=== PATIENT | female | born 1940 | race Caucasian/White ===

== ENCOUNTER → 2017-08-06 11:21 | Outpatient (CLI) | payer MEDICARE, BC, SELFPAY ==
[2017-08-06 12:59] LABS: International Normalized Ratio 1.3; Prothrombin Time (Protime)PT. 15.8 SECONDS (11.7-14.9)
== END ==
PROVIDERS: Family Provider Internal Medicine; PCP Internal Medicine; Visit Provider Internal Medicine Cardiovascular Disease
DX: I34.0 Nonrheumatic mitral (valve) insufficiency (principal); I48.1 Persistent atrial fibrillation; I27.21 Secondary pulmonary arterial hypertension; E78.5 Hyperlipidemia, unspecified; Z79.01 Long term (current) use of anticoagulants
CPT/HCPCS: 36415; 85610

== ENCOUNTER → 2017-08-25 13:26 | Outpatient (CLI) | payer MEDICARE, BC, SELFPAY ==
--- NOTE | 2017-08-25 13:27 | STE_ITS ---
Reason For Study: DYSPNEA/SOB Stress Results Protocol: Reece Protocol Maximum Predicted HR: 146 bpm Target HR: 124 bpm% Max imum Predicted HR: 112 % DurationHeart Rate Stage (mm:ss) (bpm) BP BASELINE 108 152/9 8 STAGE 1 1:52 16 4 / RECOVERY 130 142/9 2 Stress Duration: 1:52 mm:ss Maximum Stress HR: 164 bpm Baseline Echocardiogram Findings The estimated ejection fraction is 55 %. Stress Echo Wall motion Data Resting WMIntermediate WMStress WM Resting Wall Motion No regional wall motion abnormalities noted. EKG Data Atrial fibrillation with RVR. The patient exercised according to the regular Reece protocol for a total duration of 3:43. The maximum heart rate attained was 196 beats per minute. This was 134% of maximum predicted heart rate. The patient exercised into stage 2 of the Reece protocol. During stress, there were no ST or T wave changes noted to suggest ischemia. No clinical angina was noted. Interpretation Summary The estimated ejection fraction is 55 %. Normal, adequate, treadmill echocardiogram. Negative for ischemia by EKG and echocardiographic criteria. No anginal symptoms noted. Hypertensive blood pressure response to exercise. Poor exercise capacity for age. Test terminated due to dyspnea and attainment of target heart rate. Final LVEF of 75%. No complications. Ordering Physician: Eduardo Victoria Referring Physician: Eduardo Victoria Performed By: Anya Irvin RDCS
== END ==
PROVIDERS: Family Provider Internal Medicine; PCP Internal Medicine; Visit Provider Internal Medicine Cardiovascular Disease
DX: I27.21 Secondary pulmonary arterial hypertension (principal); I34.0 Nonrheumatic mitral (valve) insufficiency; I48.1 Persistent atrial fibrillation; R94.31 Abnormal electrocardiogram [ECG] [EKG]
CPT/HCPCS: 93017; 93350

== ENCOUNTER 2017-09-06 08:35 | Outpatient (RCR) | payer MEDICARE, BC, SELFPAY ==
[2017-08-16 11:45] LABS: Prothrombin Time Fingerstick 15.5 SEC (11.9-14.4)
[2017-08-25 15:24] LABS: International Normalized Ratio 1.4; Prothrombin Time (Protime)PT. 17.6 SECONDS (11.7-14.9)
[2017-09-06 09:06] LABS: International Normalized Ratio 2.3
[2017-10-04 10:04] LABS: International Normalized Ratio 2.5; Prothrombin Time (Protime)PT. 27.5 SECONDS (11.7-14.9)
== END 2017-09-06 10:00 | disposition home or self-care (01) ==
LOC: LAB 08:35
PROVIDERS: Family Provider Internal Medicine; PCP Internal Medicine; Visit Provider Internal Medicine Cardiovascular Disease
DX: I34.0 Nonrheumatic mitral (valve) insufficiency (principal); I48.0 Paroxysmal atrial fibrillation; E78.5 Hyperlipidemia, unspecified; I27.21 Secondary pulmonary arterial hypertension; Z79.01 Long term (current) use of anticoagulants; I48.1 Persistent atrial fibrillation; R94.31 Abnormal electrocardiogram [ECG] [EKG]
CPT/HCPCS: 36415; 36416; 85610; 93017; 93350

== ENCOUNTER 2017-10-04 09:00 | Outpatient (RCR) | payer MEDICARE, BC, SELFPAY ==
[2017-09-20 09:36] LABS: International Normalized Ratio 2.3; Prothrombin Time (Protime)PT. 25.2 SECONDS (11.7-14.9)
[2017-09-20 09:55] LABS: AST(SGOT) 24 U/L (15-37); Alanine Aminotransfer ALT/SGPT 32 U/L (13-56); Albumin, Serum 3.8 g/dL (3.2-5.0); Alkaline Phosphatase 97 U/L (45-117); Bilirubin, Direct 0.15 mg/dL (0.00-0.30); Cholesterol 159 mg/dL (200); Globulin 3.5 g/dL (2.2-4.2); High Density Lipoprotein 48 mg/dL; Protein, Total 7.3 g/dL (6.4-8.2); Triglycerides 225 mg/dL; Very Low Density Lipoprotein 45 mg/dL (5-40)
== END 2017-10-04 10:00 | disposition home or self-care (01) ==
LOC: LAB 09:00
PROVIDERS: Family Provider Internal Medicine; PCP Internal Medicine; Visit Provider Internal Medicine Cardiovascular Disease
DX: I48.1 Persistent atrial fibrillation (principal); I48.0 Paroxysmal atrial fibrillation; I34.0 Nonrheumatic mitral (valve) insufficiency; E78.5 Hyperlipidemia, unspecified; I27.21 Secondary pulmonary arterial hypertension; Z79.01 Long term (current) use of anticoagulants
CPT/HCPCS: 36415; 80061; 80076; 85610

== ENCOUNTER 2017-10-28 15:08 | Outpatient (RCR) | payer MEDICARE, BC, SELFPAY ==
[2017-10-28 15:45] LABS: International Normalized Ratio 2.8; Prothrombin Time (Protime)PT. 29.8 SECONDS (11.7-14.9)
== END 2017-10-28 16:00 | disposition home or self-care (01) ==
LOC: LAB 15:08
PROVIDERS: Family Provider Internal Medicine; PCP Internal Medicine; Visit Provider Internal Medicine Cardiovascular Disease
DX: I48.1 Persistent atrial fibrillation (principal); I34.0 Nonrheumatic mitral (valve) insufficiency; E78.5 Hyperlipidemia, unspecified; I27.21 Secondary pulmonary arterial hypertension; Z79.01 Long term (current) use of anticoagulants
CPT/HCPCS: 36415; 85610

== ENCOUNTER 2017-11-26 10:30 | Outpatient (RCR) | payer MEDICARE, BC, SELFPAY ==
[2017-11-26 12:12] LABS: International Normalized Ratio 2.6
== END 2017-11-26 12:00 | disposition home or self-care (01) ==
LOC: LAB 10:30
PROVIDERS: Family Provider Internal Medicine; PCP Internal Medicine; Referring Provider Internal Medicine Cardiovascular Disease; Visit Provider Internal Medicine Cardiovascular Disease
DX: I48.1 Persistent atrial fibrillation (principal); I34.0 Nonrheumatic mitral (valve) insufficiency; E78.5 Hyperlipidemia, unspecified; I27.21 Secondary pulmonary arterial hypertension; Z79.01 Long term (current) use of anticoagulants
CPT/HCPCS: 36415; 85610

== ENCOUNTER 2017-12-29 11:18 | Outpatient (RCR) | payer MEDICARE, BC, SELFPAY ==
[2017-12-29 11:40] LABS: Prothrombin Time Fingerstick 30.8 SEC (11.9-14.4)
== END 2018-01-07 10:34 | disposition home or self-care (01) ==
LOC: LAB 11:18
PROVIDERS: Family Provider Internal Medicine; PCP Internal Medicine; Referring Provider Internal Medicine Cardiovascular Disease; Visit Provider Internal Medicine Cardiovascular Disease
DX: I48.1 Persistent atrial fibrillation (principal); Z79.01 Long term (current) use of anticoagulants
CPT/HCPCS: 36416; 85610

== ENCOUNTER 2018-01-25 11:50 | Outpatient (RCR) | payer MEDICARE, BC, SELFPAY ==
--- OUTSIDE RECORDS SUMMARY | 2018-04-28 21:21 | XMS RPT_ITS ---
:1940 Author Organization OHIP Support Name Relationship Address Phone BOBBY, TOOTIE Unavailable [address] + [place] [address] R Unavailable Unavailable Unavailable LEIST, TOOTIE Unavailable [address] + [place] [address] R Unavailable Unavailable Unavailable LEIST, TOOTIE Unavailable [address] + [place] [address] R Unavailable Unavailable Unavailable LEIST, TOOTIE Unavailable [address] + [place] [address] R Unavailable Unavailable Unavailable LEIST, TOOTIE Unavailable [address] + [place] [address] R Unavailable Unavailable Unavailable LEIST, TOOTIE Unavailable [address] + [place] [address] R Unavailable Unavailable Unavailable LEIST, TOOTIE Unavailable [address] + [place] [address] R Unavailable Unavailable Unavailable LEIST, TOOTIE Unavailable [address] + [place] [address] R Unavailable Unavailable Unavailable LEIST, TOOTIE Unavailable [address] + [place] [address] R Unavailable Unavailable Unavailable LEIST, TOOTIE Unavailable [address] + [place] [address] R Unavailable Unavailable Unavailable LEIST, TOOTIE Unavailable [address] + [place] [address] R Unavailable Unavailable Unavailable LEIST, TOOTIE Unavailable [address] + [place] [address] R Unavailable Unavailable Unavailable LEIST, TOOTIE Unavailable [address] + [place] [address] R Unavailable Unavailable Unavailable LEIST, TOOTIE Unavailable [address] + [place] [address] R Unavailable Unavailable Unavailable LEIST, TOOTIE Unavailable [address] + [place] [address] R Unavailable Unavailable Unavailable R Unavailable Unavailable Unavailable CLARITA HONG Unavailable [address] + [place] [address] LEIST, TOOTIE Unavailable [address] + [place] [address] R Unavailable Unavailable Unavailable Care Team Providers Name Role Phone WADE AMAYA (HAIRSPRING TRUER) Attending Unavailable WADE AMAYA (HAIRSPRING TRUER) Referring Unavailable TALAMPAS, GERARDO D Referring Unavailable TALAMPAS, GERARDO D Referring Unavailable TALAMPAS, GERARDO D Referring Unavailable TALAMPAS, GERARDO D Referring Unavailable TALAMPAS, GERARDO D Attending Unavailable WADE AMAYA (HAIRSPRING TRUER) Attending Unavailable WADE AMAYA (HAIRSPRING TRUER) Referring Unavailable Wade Amaya HORSE RANCHER-C Attending Unavailable Talampas, Gerardo Primary Care Unavailable Eduardo Victoria Attending Unavailable Eduardo Victoria Referring Unavailable Talampas, Gerardo Primary Care Unavailable Wade Amaya HORSE RANCHER-C Attending Unavailable Talampas, Gerardo Primary Care Unavailable Daniela Mckeon Attending Unavailable Eduardo Victoria Attending Unavailable Talampas, Gerardo Referring Unavailable Talampas, Gerardo Primary Care Unavailable Eduardo Victoria Attending Unavailable Talampas, Gerardo Primary Care Unavailable Eduardo Victoria Referring Unavailable Eduardo Victoria Attending Unavailable Talampas, Gerardo Referring Unavailable Talampas, Gerardo Primary Care Unavailable Eduardo Victoria Attending Unavailable Eduardo Victoria Referring Unavailable Talampas, Gerardo Primary Care Unavailable Eduardo Victoria Attending Unavailable Talampas, Gerardo Referring Unavailable Talampas, Gerardo Primary Care Unavailable Eduardo Victoria Attending Unavailable Eduardo Victoria Referring Unavailable Talampas, Gerardo Primary Care Unavailable Eduardo Victoria Attending Unavailable Eduardo Victoria Referring Unavailable Talampas, Gerardo Primary Care Unavailable Eduardo Victoria Attending Unavailable Eduardo Victoria Attending Unavailable Eduardo Victoria Referring Unavailable Talampas, Gerardo Primary Care Unavailable Eduardo Victoria Attending Unavailable Eduardo Victoria Referring Unavailable Talampas, Gerardo Primary Care Unavailable Eduardo Victoria Attending Unavailable Eduardo Victoria Referring Unavailable Talampas, Gerardo Primary Care Unavailable Eduardo Victoria Attending Unavailable JulienEduardo Referring Unavailable Gerardo Garcia Primary Care Unavailable PROBLEMS PROBLEMS DATE TYPE CONDITION / CODE ATTENDING STATUS SOURCE 02/15/2018 Unknown Z78.0 - Asymptomatic Monique Active [place] menopausal state / [place] [facility] Z78.0(ICD-10) Hospital Repository 02/07/2018 Unknown I48.1 - Persistent Eduardo Victoria Active [place] atrial fibrillation Community / I48.1(ICD-10) Hospital Repository 01/10/2018 Unknown 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 Community anticoagulants / Hospital Z79.01(ICD-10) Repository 12/14/2017 Active Unknown / AMAYA, Active [place] UNK(Unknown) WADE (HAIRSPRING TRUER) [facility] [place] Repository 09/09/2017 Unknown 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 / Hospital I34.0(ICD-10) Repository 09/22/2017 Unknown R06.02 - Shortness Eduardo Victoria Active [place] of breath / Community R06.02(ICD-10) Hospital Repository 08/03/2017 Unknown E78.5 - Eduardo Victoria Active [place] Hyperlipidemia, [facility] unspecified / Hospital E78.5(ICD-10) Repository 08/03/2017 Unknown 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 / Hospital I27.21(ICD-10) Repository 07/27/2017 Active Persistent atrial NA Active [place] fibrillation / Clinic Main I48.1(ICD-10) [place] Repository 07/21/2017 Active Cardiac arrhythmia, NA Active [place] unspecified / Clinic Main I49.9(ICD-10) [place] Repository PROCEDURES PROCEDURES No Procedure Records FoundRESULTS RESULTS DEXA BONE DENSITY Observed: 02/15/2018 Status: F Source: [place] STUDY 11:00 AM [facility] HOSPITAL REPOSITORY [facility] Imaging Services [address] [facility] [place] [address] Dexa Bone Density Study MR#: [id number] Acct: [id number] Name: TAMMI ROSALES Rep #: [id number] : 1940 F 77 From: Brian Whiting MD PCP: Gerardo Garcia MD Status: REG CLI Study: Dexa Bone Density Study Date of Exam: 02/15/18 Exam# [id number] Ordering Dr: Wade Amaya STUDY: DUAL ENERGY X-RAY ABSORPTIOMETRY / DXA REASON FOR EXAM: Female, 77 years old. The patient is postmenopausal. Loss of height. TECHNIQUE: Bone Mineral Density (BMD) measurements of lumbar spine and bilateral hips were obtained. COMPARISON: Comparison is made with prior examination dated February 11, 2016. FINDINGS: Lumbar Spine (L1-L4): g/cm2 (1.000) / T-score (-1.5) / Z-score (0.3) Findings are suggestive of osteopenia with a moderate fracture risk. Left Femur Total: g/cm2 (0.841) / T-score (-1.3) / Z- score (0.4) Left Femoral Neck: g/cm2 (0.788) / T-score (-1.8) / Z- score (0.1) Right Femur Total: g/cm2 (0.842) / T-score (-1.3) / Z- score (0.4) Right Femoral Neck: g/cm2 (0.818) / T-score (-1.6) / Z-score (0.3) The T-Scores on the most recent prior examination were: Lumbar Spine (L1-L4): There has been worsening of bone density since the previous examination. Left Femur Total: which represents a worsening of 1.4%. Right Femur Total: which represents a worsening of 1.3%. BD/Dexa Bone Density Study IMPRESSION: The patient is considered osteopenic as outlined below according to World Jesús Organization (WHO) criteria with a moderate fracture risk. There has been worsening of bone density since the previous examination. Reference Information: The T-score is the number of standard deviations above or below the standard which is normal for young adults at their peak bone mineral density. The World Health Organization (WHO) interprets the T-scores as follows: Above -1 Normal bone density Between -1 and -2.5 Osteopenia Equal to / or below -2.5 Osteoporosis As a practical clinical guideline, osteopenia may be graded as follows: Mild -1 through -1.5 Moderate -1.6 through -2.0 Severe -2.1 through -2.4 The Z-score is the number of standard deviations above or below age-matched controls. A Z-score of less than -1.5 would be considered abnormal. References: 1. NIH Osteoporosis and Related Bone Diseases http://www.osteo.org 2. International Society for Clinical Densitometry http://www.iscd.org 3. National Osteoporosis Foundation http://www.nof.org Electronically Signed: Brian Whiting MD at 14:09 EST Tel [phone], Service support , CC: MADYSON Amaya; Gerardo Garcia MD Vascular Specialists: Signed PROTHROMBIN TIME W/INR Collected: 02/11/2018 Status: F Source: [place] 12:30 PM [facility] REPOSITORY TYPE CODE TESTS RESULT OUT OF RANGE REFERENCE UNITS LAB L300.4150 11.7-14.9 SECONDS High PROTIME 30.7 LAB L300.4200 Normal INR 2.9 Performed By: #### L300.3900 #### [facility] [address], [address] SCREENING MAMM (CAD), Observed: 02/03/2018 Status: F Source: [place] BILAT 10:38 AM [facility] REPOSITORY [facility] Imaging Services [address] [place] [address] SCREENING MAMM (CAD), BILAT MR#: [id number] Acct: [id number] Name: TAMMI ROSALES Rep #: [id number] : 1940 F 77 From: Alexandr Alaniz MD PCP: Gerardo Garcia MD Status: REG CLI Study: SCREENING MAMM (CAD), BILAT Date of Exam: 02/03/18 Exam# [id number] Ordering Dr: Wade Amaya NP-Naa MAMMOGRAPHY - BILATERAL SCREENING 3-D RAFFY SYNTHESIS REASON FOR EXAM: Female, 77 years old. Bilateral Screening 3-D tomosynthesis PERTINENT HISTORY: History of breast cancer in daughter at age 41. History of lumpectomy in 2016 with radiation therapy.. TECHNIQUE: 2-D mammograms and 3-D Raffy synthesis of the breast (s) were performed. CAD was performed. COMPARISON: February 02, 2017, January 30, 2016 FINDINGS: The breast composition is there are postlumpectomy changes in the left breast unaltered. There are stable lymph nodes in the right axilla. Scattered benign calcifications are seen. No dense spiculated masses or suspicious microcalcifications are identified. No architectural distortion is identified. There is no skin thickening or retraction. There has been no significant change since the prior study. BI/SCREENING MAMM (CAD), BILAT IMPRESSION: No mammographic signs of malignancy. Routine yearly mammograms recommended. ASSESSMENT CATEGORY: BIRADS Category 2: Benign. A letter regarding these results will be sent to the patient by the facility within 30 days. FOLLOW UP RECOMMENDATION: Yearly follow up mammogram recommended. (A) Approximately 10% of breast cancers are not detected by mammography. A normal mammogram should not delay biopsy of a clinically suspicious abnormality. Electronically Signed: Alexandr Alaniz MD at 10:48 EST , Service support , CC: WAYLON- Wade Amaya; Gerardo Garcia MD Vascular Specialists: Signed PROTIME W/INR Collected: 01/25/2018 Status: F Source: [place] 12:00 PM [facility] REPOSITORY TYPE CODE TESTS RESULT OUT OF REFERENCE UNITS RANGE LAB L9200.1001 11.9-14.4 SEC High PROTIME ISTAT 36.0 Result Comment: Reference Range 11.9 - 14.4 LAB L9200.2000 Normal INR ISTAT 3.20 Result Comment: Critical Value > 3.5 Performed By: #### L9200.0000 #### [facility] Point of Care [facility] [address] [place], [place] [address] PROTIME W/INR Collected: 12/29/2017 Status: F Source: [place] TEJEDA 11:34 AM [facility] REPOSITORY TYPE CODE TESTS RESULT OUT OF REFERENCE UNITS RANGE LAB L9200.1001 11.9-14.4 SEC High PROTIME ISTAT 30.8 Result Comment: Reference Range 11.9 - 14.4 LAB L9200.2000 Normal INR ISTAT 2.70 Result Comment: Critical Value > 3.5 Performed By: #### [id number] #### [facility] Point of Care [address] [place] [address] PROGRESS Observed: 12/14/2017 Status: COMPLETED Source: [place] 10:45 AM [facility] REPOSITORY HNO ID: [id number] Author: Wade Amaya Service: (none) Author Type: Nurse Practitioner Type: Progress Notes Filed: 12/15/2017 8:12 AM Note Text: Chief Complaint Patient presents with: Established Patient HPI: Tammi Rosales is a 76 year old female who presents here today for follow up breast cancer. Per Dr. Warren's previous note: H/o hyperlipidemia who was found to have an abnormality of the left?breast on screening mammogram. ?? She was referred to Dr. Lorenzo and underwent a ultrasound- guided core needle biopsy on 02/16/2015. Pathology demonstrated an invasive lobular carcinoma, grade 1. The specimen was strongly positive for estrogen receptors quantified at greater than 95% and weakly positive for progesterone receptors at 2%. HER-2 was quantified at 0-1+ on immunohistochemistry. Fish testing not performed. ?? Patient underwent a lumpectomy and sentinel lymph node biopsy on 03/01/2015. The final pathology demonstrated that within the breast there was a 2.3 cm single focus of invasive carcinoma. DCIS was not present. LCIS was present measuring 1 mm in largest dimension. A overall grade was 1. Margins were negative. The closest margin was the lateral and inferior at 10 mm. No lymphovascular invasion was identified. One lymph node was removed. It was negative on frozen section but positive for isolated tumor cells. ?? Had been on Premarin for about 5-10 yrs for jaret-menopausal symptoms. Had not taken in a long time. ? Oncotype Dx with her and her . Recurrence score 14 (9% risk with tamoxifen alone). Low risk. ? Radiation treatment:04/18/15 to 05/16/15. Tolerated well. ? Current therapy:arimidex Began May 2015. ? No complaints. I was diagnosed with A. fib in July. Pt. now on coumadin. ?? Appetite:good Energy level:good Denies fevers or recent illness. Resp:denies cough or sob, occ. shin with long distances h/o seasonal allergies Cardiac:denies chest pain/+ palpitations -newly dx a.fib GI:denies abd pain, n/v, moving bowels regularly :denies dysuria/hematuria Extrem:denies pain to back/bones/joints Endo:if so rarely hot flashes Neuro:denies symptoms of neuropathy Skin:denies rashes/lesions Heme:denies bleeding The ROS is otherwise negative. Past medical history, appointments, medications, allergies reviewed. No changes. EXAM: BP 142/92 Pulse 92 Temp 36.7 ?C (98.1 ?F) (Oral) Wt 72.6 kg (160 lb) BMI 25.25 kg/m? APPEARANCE Well appearing, alert, in no acute distress, well-hydrated, well nourished. HEART RRR with normal S1 and S2, no murmurs LUNG clear to auscultation BREAST FEMALE no mass/nodule b/l, L radiation changes LYMPH NODES No cervical lymphadenopathy, No supraclavicular lymphadenopathy and No axillary lymphadenopathy. ABDOMEN bowel sounds normoactive, no bruits, soft, non-tender, non-distended, without organomegaly or palpable masses EXTREMITIES No edema NEURO Awake, alert and oriented x 3, Normal gait and No involuntary motions. SKIN Skin color, texture, turgor normal, no suspicious rashes or lesions ASSESSMENT/PLAN: 1. Lobular carcinoma of left breast (HCC) - ICD9: 174.9, ICD10: C50.912 (primary diagnosis) Stage IIA, T2N0(i+), invasive lobular carcinoma of the left breast s/p lumpectomy and sentinel node biopsy. It's ER positive (>95%, strong), MO positive (2%, weak) and Her2/josé antonio 0-1+. 2. Encounter for screening mammogram for high-risk patient - ICD9: V76.11, ICD10: Z12.31 3. 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 - ?Tolerating arimidex well. Continue. - ?Bone density due 2017. - ?Mammogram due 2017. Pt. has this done at [facility]. - ?Follow up in 6 months-pending mammogram. - ?Pt. aware to call office with any questions/concerns. ? The patient indicates understanding of these issues and agrees with the plan. Wade Amaya APRN.CNP CNOVSP Observed: 12/14/2017 Status: COMPLETED Source: [place] 10:30 AM [facility] REPOSITORY Visit (SP) Office ([place]) TAMMI ROSALES ([id number]) 1940 F Date Time Provider Department 12/14/17 10:30 AM WADE AMAYA During your visit today, we recorded the following information about you: Temperature Pulse Blood pressure Weight 98.1 degrees 92/minute 142/92 72.6 kg Wade Amaya APRN.CNP 12/15/2017 8:12 AM Signed Chief Complaint Patient presents with: Established Patient HPI: Tammi Rosales is a 76 year old female who presents here today for follow up breast cancer. Per Dr. Warren's previous note: H/o hyperlipidemia who was found to have an abnormality of the left?breast on screening mammogram. ?? She was referred to Dr. Lorenzo and underwent a ultrasound- guided core needle biopsy on 02/16/2015. Pathology demonstrated an invasive lobular carcinoma, grade 1. The specimen was strongly positive for estrogen receptors quantified at greater than 95% and weakly positive for progesterone receptors at 2%. HER-2 was quantified at 0-1+ on immunohistochemistry. Fish testing not performed. ?? Patient underwent a lumpectomy and sentinel lymph node biopsy on 03/01/2015. The final pathology demonstrated that within the breast there was a 2.3 cm single focus of invasive carcinoma. DCIS was not present. LCIS was present measuring 1 mm in largest dimension. A overall grade was 1. Margins were negative. The closest margin was the lateral and inferior at 10 mm. No lymphovascular invasion was identified. One lymph node was removed. It was negative on frozen section but positive for isolated tumor cells. ?? Had been on Premarin for about 5-10 yrs for jaret-menopausal symptoms. Had not taken in a long time. ? Oncotype Dx with her and her . Recurrence score 14 (9% risk with tamoxifen alone). Low risk. ? Radiation treatment:04/18/15 to 05/16/15. Tolerated well. ? Current therapy:arimidex Began May 2015. ? No complaints. I was diagnosed with A. fib in July. Pt. now on coumadin. ?? Appetite:good Energy level:good Denies fevers or recent illness. Resp:denies cough or sob, occ. shin with long distances h/o seasonal allergies Cardiac:denies chest pain/+ palpitations -newly dx a.fib GI:denies abd pain, n/v, moving bowels regularly :denies dysuria/hematuria Extrem:denies pain to back/bones/joints Endo:if so rarely hot flashes Neuro:denies symptoms of neuropathy Skin:denies rashes/lesions Heme:denies bleeding The ROS is otherwise negative. Past medical history, appointments, medications, allergies reviewed. No changes. EXAM: BP 142/92 Pulse 92 Temp 36.7 ?C (98.1 ?F) (Oral) Wt 72.6 kg (160 lb) BMI 25.25 kg/m? APPEARANCE Well appearing, alert, in no acute distress, well- hydrated, well nourished. HEART RRR with normal S1 and S2, no murmurs LUNG clear to auscultation BREAST FEMALE no mass/nodule b/l, L radiation changes LYMPH NODES No cervical lymphadenopathy, No supraclavicular lymphadenopathy and No axillary lymphadenopathy. ABDOMEN bowel sounds normoactive, no bruits, soft, non-tender, non-distended, without organomegaly or palpable masses EXTREMITIES No edema NEURO Awake, alert and oriented x 3, Normal gait and No involuntary motions. SKIN Skin color, texture, turgor normal, no suspicious rashes or lesions ASSESSMENT/PLAN: 1. Lobular carcinoma of left breast (HCC) - ICD9: 174.9, ICD10: C50.912 (primary diagnosis) Stage IIA, T2N0(i+), invasive lobular carcinoma of the left breast s/p lumpectomy and sentinel node biopsy. It's ER positive (>95%, strong), MO positive (2%, weak) and Her2/josé antonio 0-1+. 2. Encounter for screening mammogram for high-risk patient - ICD9: V76.11, ICD10: Z12.31 3. Menopause - ICD9: 627.2, ICD10: Z78.0 4. jail (current) use of aromatase inhibitors - ICD9: V07.52, ICD10: Z79.811 - ?No concerning findings on exam. - ?Tolerating arimidex well. Continue. - ?Bone density due 2017. - ?Mammogram due 2017. Pt. has this done at [facility]. - ?Follow up in 6 months-pending mammogram. - ?Pt. aware to call office with any questions/concerns. ? The patient indicates understanding of these issues and agrees with the plan. Wade Amaya APRN.HAIRSPRING TRUER Referring Provider: WADE AMAYA [[id number]] Allergies As of Date: 12/14/2017 Noted Allergy Reaction SEASONAL ALLERGIES 05/13/2016 5 - Intolerance Comments: Rhinitis Date Reviewed: 12/14/2017 Reviewed by: Wade Amaya - Fully Assessed Reason for Visit: Established Patient [175] Primary Visit Diagnosis:Lobular carcinoma of left breast (HCC) [C50.912] Other Visit Diagnoses:Encounter for screening mammogram for high-risk patient [Z12.31] Menopause [Z78.0] jail (current) use of aromatase inhibitors [Z79.811] Order(s):GUY SCREENING W RAFFY [[id number]] Order #: [id number] FUTURE DXA-AXIAL SKELETON [[id number]] Order #: [id number] FUTURE Follow-up and Disposition History Recorded Prescriptions as of 12/14/2017 Sig: ANASTROZOLE 1 MG TABLET Take 1 tablet by mouth once d* ALBUTEROL SULFATE HFA 90 MCG/* Inhale 2 Puffs as instructed * METOPROLOL TARTRATE 25 MG TAB* Take 1 tablet by mouth twice * WARFARIN 2 MG TABLET Take 1 tablet by mouth once d* CETIRIZINE 10 MG TABLET Take 1 tablet by mouth once d* MULTIVITAMIN CHEWABLE TABLET Take 1 tablet by mouth once d* CALCIUM 600 ORAL Take 2 tablets by mouth once * DIPHENHYDRAMINE 25 MG CAPSULE Take 25 mg by mouth daily at * TYLENOL ORAL Take 1 tablet by mouth daily * ASPIRIN 81 MG TABLET,DELAYED * Take 81 mg by mouth once bennie* Problem List As Of Date 12/14/2017 Noted Resolved Lobular breast cancer (HCC) [C50.919] INVALID FOR*04/02/2015 Lobular breast cancer (HCC) [C50.919] INVALID FOR* Anemia due to vitamin B12 deficiency [D51.9] INVALID FOR*07/21/2017 Pure hypercholesterolemia [E78.00] INVALID FOR* Vitamin D deficiency, history of [E55.9] INVALID FOR* Persistent atrial fibrillation (HCC) [I48.1] INVALID FOR* More... jail (current) use of aromatase inhibitors*INVALID FOR* Encounter Status:Closed by WADE AMAYA CNP on 12/15/17 PROTHROMBIN TIME W/INR Collected: 11/26/2017 Status: F Source: [place] 10:31 AM [facility] REPOSITORY TYPE CODE TESTS RESULT OUT OF RANGE REFERENCE UNITS LAB L300.4150 11.7-14.9 SECONDS High PROTIME 28.0 LAB L300.4200 Normal INR 2.6 Performed By: #### L300.3900 #### [place] [facility], [address] PROTHROMBIN TIME W/INR Collected: 10/28/2017 Status: F Source: [place] 3:15 PM [facility] REPOSITORY Order Comment: Comments: STANDING ORDER, OKAY TO DO FINGERSTICK Comments: STANDING ORDER, OKAY TO DO FINGERSTICK TYPE CODE TESTS RESULT OUT OF RANGE REFERENCE UNITS LAB L300.4150 11.7-14.9 SECONDS High PROTIME 29.8 LAB L300.4200 Normal INR 2.8 Performed By: #### L300.3900 #### [facility] [address] [place], [place], [address] PROTHROMBIN TIME W/INR Collected: 10/04/2017 Status: F Source: [place] 9:14 AM [facility] REPOSITORY TYPE CODE TESTS RESULT OUT OF RANGE REFERENCE UNITS LAB L300.4150 11.7-14.9 SECONDS High PROTIME 27.5 LAB L300.4200 Normal INR 2.5 Performed By: #### L300.3900 #### [facility] [address] [place], [address] PROTHROMBIN TIME W/INR Collected: 09/20/2017 Status: F Source: [place] 9:04 AM [facility] REPOSITORY TYPE CODE TESTS RESULT OUT OF RANGE REFERENCE UNITS LAB L300.4150 11.7-14.9 SECONDS High PROTIME 25.2 LAB L300.4200 Normal INR 2.3 Performed By: #### L300.3900 #### [facility] [place], [address] LIVER PROFILE Collected: 09/20/2017 Status: F Source: [place] 9:04 AM [facility] REPOSITORY TYPE CODE TESTS RESULT OUT OF RANGE REFERENCE UNITS LAB L501.1500 6.4-8.2 g/dL Normal T PROT 7.3 LAB L501.1800 3.2-5.0 g/dL Normal ALB 3.8 LAB L501.1950 2.2-4.2 g/dL Normal GLOB 3.5 LAB L501.4100 15-37 U/L Normal AST 24 LAB L501.4305 45-117 U/L Normal ALK P 97 LAB L501.4405 13-56 U/L Normal ALT 32 LAB L501.4600 0.20-1.00 mg/dL Normal T BILI 0.50 LAB L501.4700 0.00-0.30 mg/dL Normal D BILI 0.15 Performed By: #### L500.3400, L500.4100 #### [facility] [address] [place], [place], [address] LIPID PROFILE Collected: 09/20/2017 Status: F Source: [place] 9:04 AM [facility] REPOSITORY TYPE CODE TESTS RESULT OUT OF RANGE REFERENCE UNITS LAB L501.4900 200 mg/dL Normal CHOL 159 Result Comment: <200 mg/dL Desirable 200-240 mg/dL Borderline >240 mg/dL High Risk LAB L501.5000 mg/dL High TRIG 225 Result Comment: The drugs N-Acetylcysteine and Metamizole may falsely depress this assay. Serum Triglycerides Reference Interval Normal <150 mg/dL Borderline high 150 - 199 mg/dL High 200 - 499 mg/dL Very High > or = 500 mg/dL LAB L501.6400 mg/dL Normal HDL 48 Result Comment: The drugs N-Acetylcysteine and Metamizole may falsely depress this assay. Reference Range HDL <40 mg/dL Low HDL Cholesterol HDL >or= 60 mg/dL High HDL Cholesterol LAB L501.6500 0-130 mg/dL Normal LDL 66 LAB L501.6600 5-40 mg/dL High VLDL 45 Performed By: #### L500.3400, L500.4100 #### [facility] [address] [place], [address] PROTHROMBIN TIME W/INR Collected: 09/06/2017 Status: F Source: [place] 8:38 AM [facility] REPOSITORY TYPE CODE TESTS RESULT OUT OF RANGE REFERENCE UNITS LAB L300.4150 11.7-14.9 SECONDS High PROTIME 25.0 LAB L300.4200 Normal INR 2.3 Performed By: #### L300.3900 #### [facility] [address] [place], [address] STRESS TEST ECHO W/O Observed: 08/25/2017 Status: F Source: [place] CONTRAST 3:51 PM [facility] REPOSITORY [facility] Cardi[facility] Services [address] [place] [address] Stress Test Echo w/o Contrast MR#: [id number] Acct: [id number] Name: TAMMI ROSALES Rep #: [id number] : 1940 76 From: Eduardo Victoria MD Primary Care: Gerardo Garcia MD Status: REG CLI Ordering Dr: Eduardo Victoria MD Sex: F C Reason For Study: DYSPNEA/SOB Stress Results Protocol: Reece Protocol Maximum Predicted HR: 146 bpm Target HR: 124 bpm% Max imum Predicted HR: 112 % DurationHeart Rate Stage (mm:ss) (bpm) BP BASELINE 108 152/9 8 STAGE 1 1:52 16 4 / RECOVERY 130 142/9 2 Stress Duration: 1:52 mm:ss Maximum Stress HR: 164 bpm Baseline Echocardiogram Findings The estimated ejection fraction is 55 %. Stress Echo Wall motion Data Resting WMIntermediate WMStress WM Resting Wall Motion No regional wall motion abnormalities noted. EKG Data Atrial fibrillation with RVR. The patient exercised according to the regular Reece protocol for a total duration of 3:43. The maximum heart rate attained was 196 beats per minute. This was 134% of maximum predicted heart rate. The patient exercised into stage 2 of the Erece protocol. During stress, there were no ST or T wave changes noted to suggest ischemia. No clinical angina was noted. Interpretation Summary The estimated ejection fraction is 55 %. Normal, adequate, treadmill echocardiogram. Negative for ischemia by EKG and echocardiographic criteria. No anginal symptoms noted. Hypertensive blood pressure response to exercise. Poor exercise capacity for age. Test terminated due to dyspnea and attainment of target heart rate. Final LVEF of 75%. No complications. Ordering Physician: Eduardo Victoria Referring Physician: Eduardo Victoria Performed By: Anya Irvin RDCS 08/25/17 4692 Date Eduardo Victoria MD CC: Eduardo Victoria MD; Gerardo Garcia MD Date Dictated: 08/25/17 1409 Date Transcribed: 08/25/17 5191 [facility] Specialists: Signed PROTHROMBIN TIME W/INR Collected: 08/25/2017 Status: F Source: [place] 2:41 PM [facility] REPOSITORY TYPE CODE TESTS RESULT OUT OF RANGE REFERENCE UNITS LAB L300.4150 11.7-14.9 SECONDS High PROTIME 17.6 LAB L300.4200 Normal INR 1.4 Performed By: #### L300.3900 #### [facility] [address] [place], [address] PROTIME W/INR Collected: 08/16/2017 Status: F Source: [place] 11:42 AM [facility] REPOSITORY TYPE CODE TESTS RESULT OUT OF REFERENCE UNITS RANGE LAB L9200.1001 11.9-14.4 SEC High PROTIME ISTAT 15.5 Result Comment: Reference Range 11.9 - 14.4 LAB L9200.2000 Normal INR ISTAT 1.30 Result Comment: Critical Value > 3.5 Performed By: #### L9200.0000 #### [facility] Point of Care [address] [place] [address] OFFICE VISIT REPORT Observed: 08/09/2017 Status: F Source: [place] 1:36 PM [facility] REPOSITORY [facility] [address] [place] [address] OFFICE VISIT Date of Service: 08/06/17 MR#: [id number] Acct: [id number] Patient: TAMMI ROSALES Rep #: [id number] : 1940 Provider: Eduardo Victoria MD Age/Sex: 76/F [place] [facility] [place] Status: Signed Intake Vital Signs08/06/17 Blood Pressure 147/83 08/06/17 Blood Pressure Location Rt brachial Intake Visit Reasons: per LL Chief Complaint: New onset atrial fibrillation, hypertension, pulmonary hypertension Pile Driving Technician Required: No Accompanied by: Is patient in pain?: No Allergies No Known Allergies Allergy (Verified 08/03/17 14:31) Medications Acetaminophen [Pain Relief] 500 mg PO QHS 02/28/15 [History Confirmed 08/03/17] Aspirin [Adult Low Dose Aspirin EC] 81 mg PO DAILY 02/28/15 [History Confirmed 08/03/17] Calcium Carbonate/Vitamin D3 [Calcium 600-Vit D3 800 Tablet] 1 ea PO BID 02/28/15 [History Confirmed 08/03/17] DiphenhydrAMINE [Benadryl] 25 mg PO QHS PRN PRN 02/28/15 [History Confirmed 08/03/17] Multivitamins,Therapeutic [Multivitamin] 1 tab PO DAILY 02/28/15 [History Confirmed 08/03/17] Anastrozole 1 mg PO DAILY 05/13/16 [History Confirmed 08/03/17] warfarin 2 mg tablet 2 mg PO QDAY 08/02/17 [History Confirmed 08/03/17] atorvastatin 20 mg tablet 20 mg PO QDAY #30 tab 08/03/17 [Rx Confirmed 08/03/17] metoprolol tartrate 50 mg tablet 50 mg PO BID #60 tab 08/03/17 [Rx Confirmed 08/03/17] Nurse's Note: Pt stopped by office to correlate her cuff with ours. Her bp on manual cuff from our office was 120/60, HR 96 and regular. On her home cuff, taken X 2: 147/83, 147/98, hr 81. 08/09/17 1336 <Electronically signed by Eduardo Victoria MD> Date Eduardo Victoria MD Cosigner Signature: Date (if applicable) CC: Crissy Campos PROTHROMBIN TIME W/INR Collected: 08/06/2017 Status: F Source: [place] 11:25 AM [facility] REPOSITORY Order Comment: Comments: STANDING ORDER Comments: STANDING ORDER TYPE CODE TESTS RESULT OUT OF RANGE REFERENCE UNITS LAB L300.4150 11.7-14.9 SECONDS High PROTIME 15.8 LAB L300.4200 Normal INR 1.3 Performed By: #### L300.3900 #### [place] [facility] [address] [place], [address] CARDIOLOGY VISIT Observed: 08/03/2017 Status: F Source: [place] REPORT 3:09 PM [facility] REPOSITORY [facility] [address] [place] [address] OFFICE VISIT Date of Service: 08/03/17 MR#: [id number] Acct: [id number] Name: TAMMI ROSALES Rep #: [id number] : 1940 Provider: Eduardo Victoria MD Age/Sex: 76/F Location: [facility] [place] Status: Signed HPI HPI Chief Complaint: New onset atrial fibrillation, hypertension, pulmonary hypertension Details: Referring physician: Dr. Radha NAVARRO BOBBY, is a 76 F who presents to the office today for evaluation of newly discovered atrial fibrillation. The patient is a nondiabetic, with a history of hypertension, hypercholesterolemia, no previous coronary disease, lifelong non-smoker, nondrinker, no previous TIA or CVA. Patient went in for a routine physical in her PCPs office and it was discovered she had an irregular heart rhythm. EKG confirmed atrial fibrillation with rapid ventricular response. Patient was placed on Coumadin and Lopressor therapy. She underwent an echocardiogram on 07/30/17 which showed moderate mitral regurgitation, LVEF of 55%, mild left atrial enlargement, and RVSP of 48 mmHg consistent with at least moderate pulmonary hypertension. Patient is unaware of her atrial fibrillation but does note decreased exercise and energy level starting about 6 weeks ago. She denies any exertional chest pain, angina but does complain of dyspnea on exertion, shortness of breath, decreased energy level as well. She also has a history of lobular breast cancer status post lumpectomy in February 2015 and status post hysterectomy in 2004. In our office today her blood pressure is 134/82, and her heart rate is 98 and are regular. Her physical exam is as below. Her lipids dated 01/08/17 show an HDL of 54 and an LDL of 153. She is currently on red yeast rice. Intake Vital Signs08/03/17 Height 5 ft 7 in 08/03/17 Weight: 167 lb 08/03/17 Body Mass Index (BMI) 26.2 08/03/17 Blood Pressure 134/82 08/03/17 Respiratory Rate 18 08/03/17 Pulse Rate 98 Intake Visit Reasons: A FIB, HTN (RADHA) Allergies No Known Allergies Allergy (Verified 08/03/17 14:31) Medications Acetaminophen [Pain Relief] 500 mg PO QHS 02/28/15 [History Confirmed 08/03/17] Aspirin [Adult Low Dose Aspirin EC] 81 mg PO DAILY 02/28/15 [History Confirmed 08/03/17] Calcium Carbonate/Vitamin D3 [Calcium 600-Vit D3 800 Tablet] 1 ea PO BID 02/28/15 [History Confirmed 08/03/17] DiphenhydrAMINE [Benadryl] 25 mg PO QHS PRN PRN 02/28/15 [History Confirmed 08/03/17] Multivitamins,Therapeutic [Multivitamin] 1 tab PO DAILY 02/28/15 [History Confirmed 08/03/17] Anastrozole 1 mg PO DAILY 05/13/16 [History Confirmed 08/03/17] warfarin 2 mg tablet 2 mg PO QDAY 08/02/17 [History Confirmed 08/03/17] atorvastatin 20 mg tablet 20 mg PO QDAY #30 tab 08/03/17 [Rx Confirmed 08/03/17] metoprolol tartrate 50 mg tablet 50 mg PO BID #60 tab 08/03/17 [Rx Confirmed 08/03/17] PFSH Family History Mother Heart disease chf Father Hypertension Social History Smoking Status: Never smoker ROS Const Const: Positive for weakness and fatigue; negative for difficulty sleeping, frequent falls, headache(s) or excessive sweating Eyes Eyes: Negative for loss of peripheral vision, transient loss of vision, blurry vision or double vision ENT ENT: Negative for Nosebleed/epistaxis, balance problems, dizziness or headache(s) Cardio Chest Pain: No Edema: None Muscle aches with walking: None Resp Respiratory: Negative for SOB with activity, SOB at rest, SOB orthopnea\SOB lying down or paroxysmal nocturnal dyspnea GI GI: Negative nausea or heartburn : Negative for hematuria Musc Musc: Negative for muscle aches/ myalgia, muscle weakness, joint pain or balance problems Skin Skin: Negative non-healing lesions, unusual bruising or rash Neuro Neuro: Positive for weakness; negative for blurry vision, dizziness, lightheadedness, orthostatic symptoms, double vision, frequent falls or headache(s) Dwight Hematologic/Lymphatic: Negative for easy bruising Endo Endo: Positive for fatigue; negative for excessive sweating or increased thirst/drinking Psych Psych: Negative for anxiety or depression Allergy Allergy/Immunology: Negative for hives, Negative for rash Cardiology Exam Const Appearance: cooperative, healthy appearing and no acute distress Nutritional Appearance: well nourished Orientation: alert, oriented x3 and oriented to person Head Head: normal to inspection, atraumatic and normocephalic Nose: external nose normal Face and Sinus: face symmetric Mouth: oral mucosae normal Eyes General: appearance normal, both eyes and all related structures Eyelids: eyelids normal Conjunctivae: conjunctivae normal Pupils: PERRL and normal by confrontation EOM: EOM intact bilaterally Neck Neck: normal visual inspection and full ROM Carotids: normal carotid upstroke Chest Chest inspection: normal inspection of the chest Auscultation: Bilateral: Clear to Auscultation Cardio Palpation: normal PMI Rate: regular rate Rhythm: irregular rhythm Heart sounds: S1 normal and S2 normal GI GI: normal to inspection, no hepatosplenomegaly and bowel sounds present Neuro General: alert, oriented x3, awake, CN's II-XI intact bilaterally and moves all extremities Skin Skin: no rashes or lesions noted Extremities Pulses: Normal: Right Femoral Pulse, Left Femoral Pulse, Right Dorsalis Pedis Pulse, Left Dorsalis Pedis Pulse, Right Posterior Tibial Pulse, Left Posterior Tibial Pulse, Right Radial Pulse, Left Radial Pulse Lower Extremity Edema: None: Bilateral Psych Psychological: normal affect Assessment AND Plan 1. Persistent atrial fibrillation I48.1 Plan 1. Atrial fibrillation: The patient is unaware of her atrial fibrillation but does have a subjective note of decreased energy level which may be related to the onset of her atrial fibrillation. Her heart rate and blood pressure still not optimally controlled. I recommend increasing her Lopressor to 50 mg p.o. twice daily and returning in 2 weeks time for a blood pressure check. To better assess her coronary condition, I recommend she undergo a treadmill echocardiogram to evaluate her exercise capacity, blood pressure response to exercise, and coronary ischemia. If this is grossly abnormal, the patient may require diagnostic coronary angiogram with bridging Lovenox. If her stress test is negative, I would continue Coumadin therapy for 4 consecutive weeks with an INR of greater than 2.0 followed by elective DC cardioversion. Orders Orders: 2. Hyperlipidemia E78.5 Plan 2. Hyperlipidemia: Her LDL cholesterol is markedly elevated given her risk factors. Do not believe red yeast rice is accommodating her well. Recommend discontinuation of red yeast rice and repeating lipid profile in 6 weeks time. Orders Orders: 3. 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 Pulmonary hypertension: This may be related to her mitral regurgitation as well as possibly undiagnosed obstructive sleep apnea. Recommend continuing surveillance with echocardiograms on yearly basis to monitor her LV function, mitral regurgitation and pulmonary pressures. 4. Return office in 6 months. This note was generated using a voice recognition system and there may be incorrect words, spelling or punctuation that were not noted when reviewing the office note prior to saving. 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 Coding Level of Care Code Off vis,new,level 4 Diagnoses Persistent atrial fibrillation I48.1 Hyperlipidemia E78.5 Secondary pulmonary arterial hypertension I27.21 08/03/17 1509 <Electronically signed by Eduardo Victoria MD> Date Eduardo Victoria MD Cosigner Signature: Date (if applicable) CC: Gerardo Garcia MD PROGRESS Observed: 08/02/2017 Status: COMPLETED Source: [place] 5:04 PM [facility] REPOSITORY HNO ID: [id number] Author: Lesly Mulligan RN Service: (none) Author Type: (none) Type: Progress Notes Filed: 08/02/2017 5:04 PM Note Text: per written order by dr garcia patient is to take 4mg for two doses and then resume back on 2mg daily until recheck. PATIENT NOTIFIED OF INFORMATION PROGRESS Observed: 08/02/2017 Status: COMPLETED Source: [place] 5:02 PM [facility] REPOSITORY HNO ID: [id number] Author: Lesly Mulligan RN Service: (none) Author Type: (none) Type: Progress Notes Filed: 08/02/2017 5:04 PM Note Text: patient had inr completed at [facility] patients inr is 1.0 (patients inr range is 2.0-3.0) patient is currently taking 2mg daily patients last dose change none at this time as pt is a new start to medication as of 07/30/17 patient has had no changes to medication except for the coumadin and no missed doses and no change in diet Advised patient that they would be contacted regarding medication dose and when to follow up after information is reviewed by provider. After provider review please contact the patient with information and schedule follow up appointment with coumadin clinic. FYI - patient is leaving for vacation on 08/07/17 until 08/14/17 patient has been scheduled for an inr follow up on 08/06/17 PROGRESS Observed: 07/30/2017 Status: COMPLETED Source: [place] 1:09 PM [facility] REPOSITORY HNO ID: [id number] Author: Kalin Palmer Service: (none) Author Type: Physician Type: Progress Notes Filed: 08/08/2017 9:48 PM Note Text: Tammi K Bobby underwent echocardiogram with the finding of atrial fibrillation with rapid ventricular response. She has moderate mitral insufficiency. Left ventricular function is normal. Blood pressure was elevated in the office, but she was anxious about returning home to her and daughter, both of whom are ill. Duration of atrial fibrillation is uncertain, as she is asymptomatic. I offered her appointment this afternoon, but she requested that she be referred to [facility]. I discussed with Dr. Garcia and made recommendations for initiation of beta jakub and anticoagulation, pending cardiology evaluation. Patient was advised that prescriptions would be called in for her and that Dr. Garcia' office would be in touch with her. Kalin Palmer MD CNOV Observed: 07/30/2017 Status: COMPLETED Source: [place] 12:30 PM [facility] REPOSITORY Office Visit (CARDWS) ROBIMomoTAMMI ([id number]) 1940 F Date Time Provider Department 07/30/17 12:30 PM ECHOCARDIOGRAM [facility] CARDWS During your visit today, we recorded the following information about you: Kalin Palmer MD 08/08/2017 9:48 PM Signed Tammi Rosales underwent echocardiogram with the finding of atrial fibrillation with rapid ventricular response. She has moderate mitral insufficiency. Left ventricular function is normal. Blood pressure was elevated in the office, but she was anxious about returning home to her and daughter, both of whom are ill. Duration of atrial fibrillation is uncertain, as she is asymptomatic. I offered her appointment this afternoon, but she requested that she be referred to [facility]. I discussed with Dr. Garcia and made recommendations for initiation of beta jakub and anticoagulation, pending cardiology evaluation. Patient was advised that prescriptions would be called in for her and that Dr. Garcia' office would be in touch with her. Kalin Palmer MD Referring Provider: GERARDO GARCIA [[id number]] Allergies As of Date: 07/30/2017 Noted Allergy Reaction SEASONAL ALLERGIES 05/13/2016 5 - Intolerance Comments: Rhinitis Date Reviewed: 07/21/2017 Reviewed by: Henri Gabriel - Fully Assessed Visit Diagnosis:Persistent atrial fibrillation (HCC) [I48.1] Comment:Newly diagnosed at this appointment Order(s):ECHO [[id number]] Order #: [id number]. #:[id number] Prescriptions as of 07/30/2017 Sig: CETIRIZINE 10 MG TABLET Take 1 tablet by mouth once d* ANASTROZOLE 1 MG TABLET Take 1 tablet by mouth once d* RED YEAST RICE ORAL Take 3 tablets by mouth once * MULTIVITAMIN CHEWABLE TABLET Take 1 tablet by mouth once d* CALCIUM 600 ORAL Take 2 tablets by mouth once * DIPHENHYDRAMINE 25 MG CAPSULE Take 25 mg by mouth daily at * TYLENOL ORAL Take 1 tablet by mouth daily * ASPIRIN 81 MG TABLET,DELAYED * Take 81 mg by mouth once bennie* Problem List As Of Date 07/30/2017 Noted Resolved Lobular breast cancer (HCC) [C50.919] INVALID FOR*04/02/2015 Lobular breast cancer (HCC) [C50.919] INVALID FOR* Anemia due to vitamin B12 deficiency [D51.9] INVALID FOR*07/21/2017 Pure hypercholesterolemia [E78.00] INVALID FOR* Vitamin D deficiency, history of [E55.9] INVALID FOR* Persistent atrial fibrillation (HCC) [I48.1] INVALID FOR* More... Follow-up and Disposition History Recorded Encounter Status:Closed by GERARDO GARCIA MD on 08/08/17 CBC Collected: 07/21/2017 Status: F Source: [place] 4:56 PM [facility] REPOSITORY TYPE CODE TESTS RESULT OUT OF REFERENCE UNITS RANGE LAB WBC 3.70-11.00 k/uL WBC 9.22 LAB RBC 3.90-5.20 m/uL RBC 4.05 LAB HGB 11.5-15.5 g/dL Hemoglobin 13.2 LAB HCT 36.0-46.0 % Hematocrit 41.5 LAB MCV 80.0-100.0 fL MCV High 102.5 LAB MCH 26.0-34.0 pG MCH 32.6 LAB MCHC 30.5-36.0 g/dL MCHC 31.8 LAB RDWCV 11.5-15.0 % RDW-CV 13.1 LAB PLTCT 150-400 k/uL Platelet Count 265 LAB MPV 9.0-12.7 fL MPV 11.0 LAB ABSNUC <0.01 k/uL Absolute nRBC <0.01 Performed By: #### CBC, CMP, MG1, FREET3, FT4, TSH #### [facility] [address] [place] [address] COMP METABOLIC PANEL Collected: 07/21/2017 Status: F Source: [place] 4:56 PM [facility] REPOSITORY TYPE CODE TESTS RESULT OUT OF REFERENCE UNITS RANGE LAB TP 6.3-8.0 g/dL Protein, Total 7.3 LAB ALB 3.9-4.9 g/dL Albumin 4.4 LAB CA 8.5-10.2 mg/dL Calcium, Total 9.3 LAB TBIL 0.2-1.3 mg/dL Bilirubin, Total 0.2 LAB ALKP 32-117 U/L Alkaline Phosphatase 88 LAB AST 13-35 U/L AST 28 LAB GLU 74-99 mg/dL Glucose 86 Result Comment: The [place] Diabetes [employer] (ADA) provides guidance for cutoff values for fasting glucose and random glucose. The ADA defines fasting as no caloric intake for at least 8 hours. Fas ting plasma glucose results between 100 to 125 mg/dL indicate increased risk for diabetes (prediabetes). Fasting plasma glucose results greater than or equal to 126 mg/dL meet the criteria for diagnosis of diabetes. In the absence of unequivocal hyperglycemia, results should be confirmed by repeat testing. In a patient with classic symptoms of hyperglycemia or hyperglycemic crisis, random plasma glucose results greater than or equal to 200 mg/dL meet the criteria for diagnosis of diabetes. Reference: Standards of Medical Care in Diabetes 2016, [place] [employer] Association. Diabetes Care. 2016.39(Suppl 1). LAB BUN 7-21 mg/dL BUN 20 LAB CRET 0.58-0.96 mg/dL Creatinine 0.81 LAB NA 136-144 mmol/L Sodium 142 LAB K 3.7-5.1 mmol/L Potassium 4.1 LAB CL 97-105 mmol/L Chloride 101 LAB CO2 22-30 mmol/L CO2 24 LAB AGAP 9-18 mmol/L Anion Gap 17 LAB ALT 7-38 U/L ALT 15 LAB GFRAA eGFR- Amer. >60 LAB GFRNAA . eGFR-All Other Races >60 Result Comment: eGFR (Estimated GFR) Units of measure: mL/min/1.73 meters squared eGFR is derived from the reexpressed MDRD Study equation using the following parameters: serum creatinine, age, gender and race. The creatinine assay has been calibrated to be traceable to IDMS. An eGFR <60 mL/min/1.73m2 for >3 months is consistent with chronic kidney disease. Refer to KDOQI guidelines for clinical interpretation. In patients with unstable renal function, e.g. those with acute kidney injury, the eGFR may not accurately reflect actual GFR. Performed By: #### CBC, CMP, MG1, FREET3, FT4, TSH #### [facility] [employer] [address] [place], [place] [address] MAGNESIUM Collected: 07/21/2017 Status: F Source: [place] 4:[address] [facility] REPOSITORY TYPE CODE TESTS RESULT OUT OF REFERENCE UNITS RANGE LAB MG 1.7-2.3 mg/dL Magnesium 2.2 Performed By: #### CBC, CMP, MG1, FREET3, FT4, TSH #### [facility] [address] [address] FREE T3 Collected: 07/21/2017 Status: F Source: [place] 4:56 PM [facility] REPOSITORY TYPE CODE TESTS RESULT OUT OF RANGE REFERENCE UNITS LAB FREET3 2.3-4.1 pg/mL Free T3 2.8 Performed By: #### CBC, CMP, MG1, FREET3, FT4, TSH #### [place] [address] FREE T4 Collected: 07/21/2017 Status: F Source: [place] 4:56 PM [facility] REPOSITORY TYPE CODE TESTS RESULT OUT OF RANGE REFERENCE UNITS LAB FT4 0.9-1.7 ng/dL Low Free T4 0.8 Performed By: #### CBC, CMP, MG1, FREET3, FT4, TSH #### [place] [address] TSH Collected: 07/21/2017 Status: F Source: [place] 4:56 PM [facility] REPOSITORY TYPE CODE TESTS RESULT OUT OF RANGE REFERENCE UNITS LAB TSH 0.400-5.500 uU/mL TSH 4.170 Performed By: #### CBC, CMP, MG1, FREET3, FT4, TSH #### [place] [id number] ECG COMPLETE W Observed: 07/21/2017 Status: F Source: [place] INTERPRETATION 4:27 PM [facility] REPOSITORY NAME : TAMMI RSOALES PID : [id number] : 1940 Gender : Female Race : ORD : [id number] Procedure Date : Jul 21 2017 16:27:21 Edit Date : Jul 27 2017 07:42:10 Diagnosis:ATRIAL FIBRILLATION WITH RAPID VENTRICULAR RESPONSE ABNORMAL ECG Confirmed by NICHOLE GARIBAY D.O. ([id number]) on 07/27/2017 7:42:04 AM Ventricular Rate : 117 BPM Atrial Rate : 111 BPM QRS Duration : 90 ms Q-T Interval : 340 ms QTC Calculation(Bezet) : 474 ms R [place] : 47 degrees T [place] : 4 degrees Test Reason : Location : 185 : [facility] Overread By : NICHOLE GARIBAY D.O. Edited By : NICHOLE GARIBAY D.O. Referred By : GERARDO GARCIA Acquired by : MELISSA, PROGRESS Observed: 07/21/2017 Status: COMPLETED Source: [place] 2:[address] [facility] REPOSITORY HNO ID: [id number] Author: Gerardo Garcia Service: (none) Author Type: Physician Type: Progress Notes Filed: 07/27/2017 1:06 AM Note Text: Medicare Yearly Visit Medical B eligibilty date 12/10/2007 Date of last exam 01/13/17 for 6 months follow up Heartburn once in a while and TUMS effective. No complaints of palpitations or increased SHIN or SOB at rest. No chest pain. Stressors noted. recently in hospital for cardiac issues. 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 She watches her diet for sodium, low fat and low cholesterol all of the time. List of current specialists seen: Dr. Warren/Wade Amaya (oncology) Dr. Underwood (Ophthalmology)--cataract on right to be done August (does not need left done yet) End of Live Planning discussed including patients advanced directive wishes: Yes (no copies on Epic yet) Living will, DNR form and Durable power of tax associate attorney for heatare I am willing to follow Tammi's advanced directives. Depression screen She in the past two weeks has felt down, depressed, but not hopeless; with little interest or pleasure in doing things. Stressors with dtr Functional Ability/Safety Screen 1. Was the patient's timed Up and Go test unsteady or longer than 30 seconds? Normal test; able to stand unassisted 2. Does the patient need help with the phone, transportation, shopping,preparing meals, housework, laundry, medications or managing money? No 3. Does your home have rugs in the hallway, lack of grab bars in the bathroom, lack of handrails on the stairs or have poor lighting? No Hearing Evaluation: normal PHYSICAL EXAM BP 134/80 (BP Site: Right Arm, BP Position: Sitting, BP Cuff Size: Regular Adult) Pulse 112 Resp 12 Wt 75.8 kg (167 lb) BMI 26.35 kg/m? Alert and oriented X 3: YES There is no height or weight on file to calculate BMI. Visual acuity: OD: 20/70 OS: 20/ 25 OU: 20/25 with glasses PHYSICAL EXAMINATION: Blood pressure 134/80, pulse 112, resp. rate 12, weight 75.8 kg (167 lb). General appearance: well appearing, in no acute distress, well-hydrated, well nourished Skin: Skin color, texture, turgor normal. No significant rashes or lesions. Head: Normal Eyes: Anicteric sclera. Pupils are equally round and reactive to light. Extraocular movements are intact. Ears: External ears normal. Canals clear. TM's unremarkable. Nose/Sinuses: negative Oropharynx: Lips, mucosa, and tongue normal. Teeth and gums normal. Oropharynx normal. Neck: Neck supple, no adenopathy; thyroid symmetric, normal size, no bruits. Lungs: Lungs clear to auscultation Heart: negative. irregularly irregular rate and rhythm versus frequent ectopy without murmur, gallop, or rubs. Abdomen: Abdomen soft, non-tender. Bowel sounds normal. No masses, organomegaly Extremities: Extremities normal. No deformities, edema, or skin discoloration. Good capillary refill. Musculoskeletal: grossly normal Peripheral pulses: Normal Neuro: Gait normal. Reflexes normal and symmetric. Sensation grossly intact. No gross focal neurological deficits. Component Latest Ref Rng AND Units 06/26/2015 12/06/2015 06/24/2016 01/08/2017 Glucose 74 - 99 mg/dL 90 84 BUN 7 - 21 mg/dL 16 13 Creatinine 0.58 - 0.96 mg/dL 0.72 0.74 Sodium 136 - 144 mmol/L 143 142 Potassium 3.7 - 5.1 mmol/L 4.3 4.2 Chloride 97 - 105 mmol/L 104 101 CO2 22 - 30 mmol/L 27 29 Anion Gap 9 - 18 mmol/L 12 12 Calcium 8.5 - 10.2 mg/dL 9.3 9.4 eGFR- >60 >60 eGFR-All Other Races . >60 >60 WBC 3.70 - 11.00 k/uL 7.39 8.00 RBC 3.90 - 5.20 m/uL 3.89 (L) 4.21 Hemoglobin 11.5 - 15.5 g/dL 12.8 13.8 Hematocrit 36.0 - 46.0 % 39.5 43.5 MCV 80.0 - 100.0 fL 101.5 (H) 103.3 (H) MCH 26.0 - 34.0 pG 32.9 32.8 MCHC 30.5 - 36.0 g/dL 32.4 31.7 RDW-CV 11.5 - 15.0 % 12.9 12.7 Platelet Count 150 - 400 k/uL 272 304 MPV 9.0 - 12.7 fL 10.3 10.3 Absolute nRBC <0.01 k/uL <0.01 Triglyceride 30 - 149 mg/dL 198 (H) 264 (H) Cholesterol, Total 100 - 199 mg/dL 250 (H) 260 (H) HDL Cholesterol >55 mg/dL 52 (L) 54 (L) VLDL Cholesterol 6 - 40 mg/dL 40 53 (H) LDL Cholesterol 60 - 129 mg/dL 158 (H) 153 (H) Fasting Time hrs 12 12 TC:HDL Ratio 1.00 - 5.00 4.81 4.81 LDL:HDL Ratio 0.50 - 3.55 3.04 2.83 Non HDL Cholesterol 90 - 159 mg/dL 198 (H) 206 (H) Vitamin D 25 Hydroxy 31.0 - 80.0 ng/mL 30.5 (L) 53.1 39.4 Vitamin B12 211 - 946 pg/mL 437 368 443 ECG discused with patient--showing a fib with RVR with rate 117 ASSESSMENT/PLAN: 76 year old female The following prevention plan was discussed during the office visit and provided to the patient: - Vaccines recommended Influenza in the fall; will see about insurance coverage for TDAP and Shingrix - Glaucoma screening - Colorectal Cancer screening Colonoscopy up to date; 10 years would be 2026 for next colonscopy - Mammogram recommended and ordered - Lipid panel up to date along with glucose for diabetes screening Encounter Diagnosis ICD-10-CM 1. Wellness examination Z00.00 2. Persistent atrial fibrillation (HCC) I48.1 TSH BLD T3 FREE BLD T4 FREE/FREE THYROX COMP METABOLIC PANEL MAGNESIUM BLD CBC ECHO 3. Irregular cardiac rhythm I49.9 ECG COMPLETE W INTERPRETATION Above issues addressed with patient. Patient involved in shared decision making for management of her medical issues. History and medications reviewed. Epic updated as needed Refills taken care of and meds adjusted as indicated after reviewed history, exam and labs. Health Maintenance reviewed. Updated record and/or ordered tests as recorded. Encouraged on efforts at healthy diet and regular exercise and adequate sleep. Noted stressors with 's recent cardiac issues and admission to hospital. Patient now with new diagnosis of atrial fibrillation--asymptomatic. Labs as above, She prefers to start with testing including echocardiogram before referral to another specialist. After get labs and echocardiogram back, will discuss with her further evaluation and treatment as indicated. Gerardo Garcia MD CNOV Observed: 07/21/2017 Status: COMPLETED Source: [place] 2:20 PM [facility] REPOSITORY Office Visit (INTMWS) TAMMI ROSALES ([id number]) 1940 F Date Time Provider Department 07/21/17 2:20 PM GERARDO GARCIA INTMWS During your visit today, we recorded the following information about you: Pulse Respiration Blood pressure Weight 112/minute 12/minute 134/80 75.8 kg Gerardo Garcia MD 07/27/2017 1:06 AM Signed Medicare Yearly Visit Medical B eligibilty date 12/10/2007 Date of last exam 01/13/17 for 6 months follow up Heartburn once in a while and TUMS effective. No complaints of palpitations or increased SHIN or SOB at rest. No chest pain. Stressors noted. recently in hospital for cardiac issues. 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 She watches her diet for sodium, low fat and low cholesterol all of the time. List of current specialists seen: Dr. Warren/Wade Amaya (oncology) Dr. Underwood (Ophthalmology)--cataract on right to be done August (does not need left done yet) End of Live Planning discussed including patients advanced directive wishes: Yes (no copies on Pollsb yet) Living will, DNR form and Durable power of tax associate attorney for heatare I am willing to follow Tammi's advanced directives. Depression screen She in the past two weeks has felt down, depressed, but not hopeless; with little interest or pleasure in doing things. Stressors with dtr Functional Ability/Safety Screen 1. Was the patient's timed Up and Go test unsteady or longer than 30 seconds? Normal test; able to stand unassisted 2. Does the patient need help with the phone, transportation, shopping,preparing meals, housework, laundry, medications or managing money? No 3. Does your home have rugs in the hallway, lack of grab bars in the bathroom, lack of handrails on the stairs or have poor lighting? No Hearing Evaluation: normal PHYSICAL EXAM BP 134/80 (BP Site: Right Arm, BP Position: Sitting, BP Cuff Size: Regular Adult) Pulse 112 Resp 12 Wt 75.8 kg (167 lb) BMI 26.35 kg/m? Alert and oriented X 3: YES There is no height or weight on file to calculate BMI. Visual acuity: OD: 20/70 OS: 20/ 25 OU: 20/25 with glasses PHYSICAL EXAMINATION: Blood pressure 134/80, pulse 112, resp. rate 12, weight 75.8 kg (167 lb). General appearance: well appearing, in no acute distress, well-hydrated, well nourished Skin: Skin color, texture, turgor normal. No significant rashes or lesions. Head: Normal Eyes: Anicteric sclera. Pupils are equally round and reactive to light. Extraocular movements are intact. Ears: External ears normal. Canals clear. TM's unremarkable. Nose/Sinuses: negative Oropharynx: Lips, mucosa, and tongue normal. Teeth and gums normal. Oropharynx normal. Neck: Neck supple, no adenopathy; thyroid symmetric, normal size, no bruits. Lungs: Lungs clear to auscultation Heart: negative. irregularly irregular rate and rhythm versus frequent ectopy without murmur, gallop, or rubs. Abdomen: Abdomen soft, non-tender. Bowel sounds normal. No masses, organomegaly Extremities: Extremities normal. No deformities, edema, or skin discoloration. Good capillary refill. Musculoskeletal: grossly normal Peripheral pulses: Normal Neuro: Gait normal. Reflexes normal and symmetric. Sensation grossly intact. No gross focal neurological deficits. Component Latest Ref Rng AND Units 06/26/2015 12/06/2015 06/24/2016 01/08/2017 Glucose 74 - 99 mg/dL 90 84 BUN 7 - 21 mg/dL 16 13 Creatinine 0.58 - 0.96 mg/dL 0.72 0.74 Sodium 136 - 144 mmol/L 143 142 Potassium 3.7 - 5.1 mmol/L 4.3 4.2 Chloride 97 - 105 mmol/L 104 101 CO2 22 - 30 mmol/L 27 29 Anion Gap 9 - 18 mmol/L 12 12 Calcium 8.5 - 10.2 mg/dL 9.3 9.4 eGFR- >60 >60 eGFR-All Other Races . >60 >60 WBC 3.70 - 11.00 k/uL 7.39 8.00 RBC 3.90 - 5.20 m/uL 3.89 (L) 4.21 Hemoglobin 11.5 - 15.5 g/dL 12.8 13.8 Hematocrit 36.0 - 46.0 % 39.5 43.5 MCV 80.0 - 100.0 fL 101.5 (H) 103.3 (H) MCH 26.0 - 34.0 pG 32.9 32.8 MCHC 30.5 - 36.0 g/dL 32.4 31.7 RDW-CV 11.5 - 15.0 % 12.9 12.7 Platelet Count 150 - 400 k/uL 272 304 MPV 9.0 - 12.7 fL 10.3 10.3 Absolute nRBC <0.01 k/uL <0.01 Triglyceride 30 - 149 mg/dL 198 (H) 264 (H) Cholesterol, Total 100 - 199 mg/dL 250 (H) 260 (H) HDL Cholesterol >55 mg/dL 52 (L) 54 (L) VLDL Cholesterol 6 - 40 mg/dL 40 53 (H) LDL Cholesterol 60 - 129 mg/dL 158 (H) 153 (H) Fasting Time hrs 12 12 TC:HDL Ratio 1.00 - 5.00 4.81 4.81 LDL:HDL Ratio 0.50 - 3.55 3.04 2.83 Non HDL Cholesterol 90 - 159 mg/dL 198 (H) 206 (H) Vitamin D 25 Hydroxy 31.0 - 80.0 ng/mL 30.5 (L) 53.1 39.4 Vitamin B12 211 - 946 pg/mL 437 368 443 ECG discused with patient--showing a fib with RVR with rate 117 ASSESSMENT/PLAN: 76 year old female The following prevention plan was discussed during the office visit and provided to the patient: - Vaccines recommended Influenza in the fall; will see about insurance coverage for TDAP and Shingrix - Glaucoma screening - Colorectal Cancer screening Colonoscopy up to date; 10 years would be 2026 for next colonscopy - Mammogram recommended and ordered - Lipid panel up to date along with glucose for diabetes screening Encounter Diagnosis ICD-10-CM 1. Wellness examination Z00.00 2. Persistent atrial fibrillation (HCC) I48.1 TSH BLD T3 FREE BLD T4 FREE/FREE THYROX COMP METABOLIC PANEL MAGNESIUM BLD CBC ECHO 3. Irregular cardiac rhythm I49.9 ECG COMPLETE W INTERPRETATION Above issues addressed with patient. Patient involved in shared decision making for management of her medical issues. History and medications reviewed. Epic updated as needed Refills taken care of and meds adjusted as indicated after reviewed history, exam and labs. Health Maintenance reviewed. Updated record and/or ordered tests as recorded. Encouraged on efforts at healthy diet and regular exercise and adequate sleep. Noted stressors with 's recent cardiac issues and admission to hospital. Patient now with new diagnosis of atrial fibrillation--asymptomatic. Labs as above, She prefers to start with testing including echocardiogram before referral to another specialist. After get labs and echocardiogram back, will discuss with her further evaluation and treatment as indicated. MD Henri Bell 07/21/2017 3:08 PM Signed VISUAL ACUITY: Today's exam: Vision Correction? Glasses: RIGHT EYE: 20/70 LEFT EYE: 20/ 25 BOTH EYES: 20/25 Gerardo Garcia MD 07/21/2017 4:06 PM Addendum See if insurance covers for Shingrix (new shingles vaccine) and TDAP (tetanus shot with whooping cough coverage). ASSESSMENT/PLAN: 76 year old female The following prevention plan was discussed during the office visit and provided to the patient: - Vaccines recommended Influenza in the fall; will see about insurance coverage for TDAP and Shingrix - Glaucoma screening - Colorectal Cancer screening Colonoscopy up to date; 10 years would be 2026 for next colonscopy - Mammogram recommended and ordered - Lipid panel up to date along with glucose for diabetes screening Gerardo Garcia MD Referring Provider: SELF [200] Allergies As of Date: 07/21/2017 Noted Allergy Reaction SEASONAL ALLERGIES 05/13/2016 5 - Intolerance Comments: Rhinitis Date Reviewed: 07/21/2017 Reviewed by: Henri Gabriel - Fully Assessed Reason for Visit: Yearly Exam [187] Primary Visit Diagnosis:Encounter for preventative adult health care exam with abnormal findings [Z00.01] Other Visit Diagnoses:Persistent atrial fibrillation (HCC) [I48.1] Comment:Newly diagnosed at this appointment Irregular cardiac rhythm [I49.9] Order(s):ECG COMPLETE W INTERPRETATION [ECG01] Order #: [id number] FUTURE TSH BLD [SQTSH] Order #: [id number] FUTURE T3 FREE BLD [SQFREET3] Order #: [id number] FUTURE T4 FREE/FREE THYROX [SQFT4] Order #: [id number] FUTURE COMP METABOLIC PANEL [SQCMP] Order #: [id number] FUTURE MAGNESIUM BLD [SQMG1] Order #: [id number] FUTURE CBC [SQCBC] Order #: [id number] FUTURE ECHO [698832] Order #: [id number]: 1 FUTURE Prescriptions as of 07/21/2017 Sig: CETIRIZINE 10 MG TABLET Take 1 tablet by mouth once d* ANASTROZOLE 1 MG TABLET Take 1 tablet by mouth once d* RED YEAST RICE ORAL Take 3 tablets by mouth once * MULTIVITAMIN CHEWABLE TABLET Take 1 tablet by mouth once d* CALCIUM 600 ORAL Take 2 tablets by mouth once * DIPHENHYDRAMINE 25 MG CAPSULE Take 25 mg by mouth daily at * TYLENOL ORAL Take 1 tablet by mouth daily * ASPIRIN 81 MG TABLET,DELAYED * Take 81 mg by mouth once bennie* Problem List As Of Date 07/21/2017 Noted Resolved Lobular breast cancer (HCC) [C50.919] INVALID FOR*04/02/2015 Lobular breast cancer (HCC) [C50.919] INVALID FOR* Anemia due to vitamin B12 deficiency [D51.9] INVALID FOR*07/21/2017 Pure hypercholesterolemia [E78.00] INVALID FOR* Vitamin D deficiency, history of [E55.9] INVALID FOR* Other instructions from your clinician: See if insurance covers for Shingrix (new shingles vaccine) and TDAP (tetanus shot with whooping cough coverage). ASSESSMENT/PLAN: 76 year old female The following prevention plan was discussed during the office visit and provided to the patient: - Vaccines recommended Influenza in the fall; will see about insurance coverage for TDAP and Shingrix - Glaucoma screening - Colorectal Cancer screening Colonoscopy up to date; 10 years would be 2026 for next colonscopy - Mammogram recommended and ordered - Lipid panel up to date along with glucose for diabetes screening Gerardo Garcia MD Visit Notes: >> Henri Gabriel WedJul 21, 2017 3:06 PM Status: Signed VISUAL ACUITY: Today's exam: Vision Correction? Glasses: RIGHT EYE: 20/70 LEFT EYE: 20/ 25 BOTH EYES: 20/25 Medications Discontinued During This Encounter albuterol HFA (VENTOLIN HFA) 90 mcg/* 1 In* 0 07/01/2016 07/21/2017 Route: INHALATION Sig: Inhale 2 Puffs as instructed every 4 hours as needed for Wheezing/Shortness of Breath. Disc: Course of therapy completed Disposition: Return in about 1 month (around 08/20/2017) for Yearly exam and follow up (40 min). Follow-up and Disposition History Recorded Encounter Status:Closed by GERARDO GARCIA MD on 07/27/17 PROGRESS Observed: 06/09/2017 Status: COMPLETED Source: [place] 4:43 PM [facility] REPOSITORY HNO ID: [id number] Author: Robbie Valiente (Sw) Service: (none) Author Type: Lab Courier Type: Progress Notes Filed: 06/09/2017 4:45 PM Note Text: Social Work Problem Referral Note INFORMATION/REFERRAL : Tammi Rosales 76 year old female was referred by nurse Chito Amaya to [facility] Social Work for the following reason(s): anxiety PERSONS INTERVIEWED: patient INTERVENTION: Phone Contact Affect/Mood: The patient is noted as appropriate IDENTIFIED PROBLEMS/NEEDS: No identified problems Intervention/Referral to be provided:No further intervention required IMPRESSION/PLAN: DAVID called patient regarding KP questionnaire from office visit yesterday. Patient had declined meeting with DAVID yesterday for distress assessment, but HAIRSPRING TRUER still noted that intervention may be helpful for patient. DAVID reached out to patient via phone today, but patient denies any needs and states that she is doing well. DAVID encouraged patient to contact our office if any issues arise and patient is agreeable. F/U APPOINTMENT: RENNY Holt CNSW Observed: 06/09/2017 Status: COMPLETED Source: [place] 12:00 AM [facility] REPOSITORY Social Work (SERAFIN) TAMMI ROSALES ([id number]) 1940 F Date Time Provider Department 06/09/17 ROBBIE VALIENTE (SW) During your visit today, we recorded the following information about you: RENNY Turcios 06/09/2017 4:45 PM Signed Social Work Problem Referral Note INFORMATION/REFERRAL : Tammi Rosales 76 year old female was referred by nurse Chito Amaya to [facility] Social Work for the following reason(s): anxiety PERSONS INTERVIEWED: patient INTERVENTION: Phone Contact Affect/Mood: The patient is noted as appropriate IDENTIFIED PROBLEMS/NEEDS: No identified problems Intervention/Referral to be provided:No further intervention required IMPRESSION/PLAN: DAVID called patient regarding KP questionnaire from office visit yesterday. Patient had declined meeting with DAVID yesterday for distress assessment, but ALIX still noted that intervention may be helpful for patient. SW reached out to patient via phone today, but patient denies any needs and states that she is doing well. SW encouraged patient to contact our office if any issues arise and patient is agreeable. F/U APPOINTMENT: RENNY Holt Allergies As of Date: 06/09/2017 Noted Allergy Reaction SEASONAL ALLERGIES 05/13/2016 5 - Intolerance Comments: Rhinitis Date Reviewed: 06/08/2017 Reviewed by: Wade Amaya - Fully Assessed Reason for Visit: Social Work Services [507] Cmt: distress assessment Prescriptions as of 06/09/2017 Sig: CETIRIZINE 10 MG TABLET Take 1 tablet by mouth once d* ANASTROZOLE 1 MG TABLET Take 1 tablet by mouth once d* ALBUTEROL SULFATE HFA 90 MCG/* Inhale 2 Puffs as instructed * RED YEAST RICE ORAL Take 3 tablets by mouth once * MULTIVITAMIN CHEWABLE TABLET Take 1 tablet by mouth once d* CALCIUM 600 ORAL Take 2 tablets by mouth once * DIPHENHYDRAMINE 25 MG CAPSULE Take 25 mg by mouth daily at * TYLENOL ORAL Take 1 tablet by mouth daily * ASPIRIN 81 MG TABLET,DELAYED * Take 81 mg by mouth once bennie* Problem List As Of Date 06/09/2017 Noted Resolved Lobular breast cancer (HCC) [C50.919] INVALID FOR*04/02/2015 Lobular breast cancer (HCC) [C50.919] INVALID FOR* Anemia due to vitamin B12 deficiency [D51.9] INVALID FOR* Pure hypercholesterolemia [E78.00] INVALID FOR* Vitamin D deficiency [E55.9] INVALID FOR* Encounter Status:Closed by ROBBIE VALIENTE on 06/09/17 PROGRESS Observed: 06/08/2017 Status: COMPLETED Source: [place] 2:[address] [facility] HNO ID: [id number] Author: Wade Amaya Service: (none) Author Type: Nurse Practitioner Type: Progress Notes Filed: 06/08/2017 2:35 PM Note Text: Chief Complaint Patient presents with: Established Patient HPI: Tammi Rosales is a 76 year old female who presents here today for follow up breast cancer. Per Dr. Warren's previous note: H/o hyperlipidemia who was found to have an abnormality of the left?breast on screening mammogram. ?? She was referred to Dr. Lorenzo and underwent a ultrasound- guided core needle biopsy on 02/16/2015. Pathology demonstrated an invasive lobular carcinoma, grade 1. The specimen was strongly positive for estrogen receptors quantified at greater than 95% and weakly positive for progesterone receptors at 2%. HER-2 was quantified at 0-1+ on immunohistochemistry. Fish testing not performed. ?? Patient underwent a lumpectomy and sentinel lymph node biopsy on 03/01/2015. The final pathology demonstrated that within the breast there was a 2.3 cm single focus of invasive carcinoma. DCIS was not present. LCIS was present measuring 1 mm in largest dimension. A overall grade was 1. Margins were negative. The closest margin was the lateral and inferior at 10 mm. No lymphovascular invasion was identified. One lymph node was removed. It was negative on frozen section but positive for isolated tumor cells. ?? Had been on Premarin for about 5-10 yrs for jaret-menopausal symptoms. Had not taken in a long time. ? Oncotype Dx with her and her . Recurrence score 14 (9% risk with tamoxifen alone). Low risk. ? Radiation treatment:04/18/15 to 05/16/15. Tolerated well. ? Current therapy:arimidex Began May 2015. ? I'm extremely stressed. ?? Appetite:good Energy level:fair Denies fevers or recent illness. Resp:occ. dry cough, denies sob h/o seaonal allergies Cardiac:denies chest pain/palpitations GI:denies abd pain, n/v, moving bowels regularly :denies dysuria/hematuria Extrem:denies pain to back/bones/joints Endo:denies hot flashes Neuro:denies symptoms of neuropathy Skin:denies rashes/lesions Heme:denies bleeding ? The ROS is otherwise negative. Past medical history, appointments, medications, allergies reviewed. No changes. EXAM: BP 156/96 Pulse (!) 126 Temp 37.3 ?C (99.2 ?F) (Oral) Wt 75.5 kg (166 lb 8 oz) BMI 26.27 kg/m? APPEARANCE Well appearing, alert, in no acute distress, well-hydrated, well nourished. HEART RRR with normal S1 and S2, no murmurs LUNG clear to auscultation BREAST FEMALE no mass/nodule b/l, L radiation changes LYMPH NODES No cervical lymphadenopathy, No supraclavicular lymphadenopathy and No axillary lymphadenopathy. ABDOMEN bowel sounds normoactive, no bruits, soft, non-tender, non-distended, without organomegaly or palpable masses EXTREMITIES No edema NEURO Awake, alert and oriented x 3, Normal gait and No involuntary motions. SKIN Skin color, texture, turgor normal, no suspicious rashes or lesions ASSESSMENT/PLAN: 1. Lobular carcinoma of left breast (HCC) - ICD9: 174.9, ICD10: C50.912 Stage IIA, T2N0(i+), invasive lobular carcinoma of the left breast s/p lumpectomy and sentinel node biopsy. It's ER positive (>95%, strong), MO positive (2%, weak) and Her2/josé antonio 0-1+. - ?No concerning findings on exam. - I offered assistance to pt. re:her stress she declined and did not want to discuss. I did ask the pt. if she was safe and she said yes. Pt. also declined to stop and see DAVID Ordoñez. I did update Robbie on pt. - ?Tolerating arimidex well. Continue. - ?Bone density due 2017. - ?Mammogram due 2017. Pt. has this done at [facility]. - ?Follow up in 6 months. - ?Pt. aware to call office with any questions/concerns. ? The patient indicates understanding of these issues and agrees with the plan. Wade Amaya APRN.HAIRSPRING TRUER CNOVSP Observed: 06/08/2017 Status: COMPLETED Source: [place] 2:00 PM [facility] REPOSITORY Visit (SP) Office (SERAFIN) TAMMI ROSALES ([id number]) 1940 F Date Time Provider Department 06/08/17 2:00 PM WADE AMAYA (ALIX) SERAFIN During your visit today, we recorded the following information about you: Temperature Pulse Blood pressure Weight 99.2 degrees 126/minute 156/96 75.5 kg Wade Amaya APRN.CNP 06/08/2017 2:35 PM Signed Chief Complaint Patient presents with: Established Patient HPI: Tammi Rosales is a 76 year old female who presents here today for follow up breast cancer. Per Dr. Warren's previous note: H/o hyperlipidemia who was found to have an abnormality of the left?breast on screening mammogram. ?? She was referred to Dr. Lorenzo and underwent a ultrasound- guided core needle biopsy on 02/16/2015. Pathology demonstrated an invasive lobular carcinoma, grade 1. The specimen was strongly positive for estrogen receptors quantified at greater than 95% and weakly positive for progesterone receptors at 2%. HER-2 was quantified at 0-1+ on immunohistochemistry. Fish testing not performed. ?? Patient underwent a lumpectomy and sentinel lymph node biopsy on 03/01/2015. The final pathology demonstrated that within the breast there was a 2.3 cm single focus of invasive carcinoma. DCIS was not present. LCIS was present measuring 1 mm in largest dimension. A overall grade was 1. Margins were negative. The closest margin was the lateral and inferior at 10 mm. No lymphovascular invasion was identified. One lymph node was removed. It was negative on frozen section but positive for isolated tumor cells. ?? Had been on Premarin for about 5-10 yrs for jaret-menopausal symptoms. Had not taken in a long time. ? Oncotype Dx with her and her . Recurrence score 14 (9% risk with tamoxifen alone). Low risk. ? Radiation treatment:04/18/15 to 05/16/15. Tolerated well. ? Current therapy:arimidex Began May 2015. ? I'm extremely stressed. ?? Appetite:good Energy level:fair Denies fevers or recent illness. Resp:occ. dry cough, denies sob h/o seaonal allergies Cardiac:denies chest pain/palpitations GI:denies abd pain, n/v, moving bowels regularly :denies dysuria/hematuria Extrem:denies pain to back/bones/joints Endo:denies hot flashes Neuro:denies symptoms of neuropathy Skin:denies rashes/lesions Heme:denies bleeding ? The ROS is otherwise negative. Past medical history, appointments, medications, allergies reviewed. No changes. EXAM: BP 156/96 Pulse (!) 126 Temp 37.3 ?C (99.2 ?F) (Oral) Wt 75.5 kg (166 lb 8 oz) BMI 26.27 kg/m? APPEARANCE Well appearing, alert, in no acute distress, well- hydrated, well nourished. HEART RRR with normal S1 and S2, no murmurs LUNG clear to auscultation BREAST FEMALE no mass/nodule b/l, L radiation changes LYMPH NODES No cervical lymphadenopathy, No supraclavicular lymphadenopathy and No axillary lymphadenopathy. ABDOMEN bowel sounds normoactive, no bruits, soft, non-tender, non-distended, without organomegaly or palpable masses EXTREMITIES No edema NEURO Awake, alert and oriented x 3, Normal gait and No involuntary motions. SKIN Skin color, texture, turgor normal, no suspicious rashes or lesions ASSESSMENT/PLAN: 1. Lobular carcinoma of left breast (HCC) - ICD9: 174.9, ICD10: C50.912 Stage IIA, T2N0(i+), invasive lobular carcinoma of the left breast s/p lumpectomy and sentinel node biopsy. It's ER positive (>95%, strong), MO positive (2%, weak) and Her2/josé antonio 0-1+. - ?No concerning findings on exam. - I offered assistance to pt. re:her stress she declined and did not want to discuss. I did ask the pt. if she was safe and she said yes. Pt. also declined to stop and see DAVID Ordoñez. I did update Robbie on pt. - ?Tolerating arimidex well. Continue. - ?Bone density due 2017. - ?Mammogram due 2017. Pt. has this done at [facility]. - ?Follow up in 6 months. - ?Pt. aware to call office with any questions/concerns. ? The patient indicates understanding of these issues and agrees with the plan. Wade Amaya APRN.ALIX Referring Provider: WADE AMAYA ([facility]) [[id number]] Allergies As of Date: 06/08/2017 Noted Allergy Reaction SEASONAL ALLERGIES 05/13/2016 5 - Intolerance Comments: Rhinitis Date Reviewed: 06/08/2017 Reviewed by: Wade (Alix) Monique - Fully Assessed Reason for Visit: Established Patient [175] Primary Visit Diagnosis:Lobular carcinoma of left breast (HCC) [C50.912] Follow-up and Disposition History Recorded Prescriptions as of 06/08/2017 Sig: CETIRIZINE 10 MG TABLET Take 1 tablet by mouth once d* ANASTROZOLE 1 MG TABLET Take 1 tablet by mouth once d* ALBUTEROL SULFATE HFA 90 MCG/* Inhale 2 Puffs as instructed * RED YEAST RICE ORAL Take 3 tablets by mouth once * MULTIVITAMIN CHEWABLE TABLET Take 1 tablet by mouth once d* CALCIUM 600 ORAL Take 2 tablets by mouth once * DIPHENHYDRAMINE 25 MG CAPSULE Take 25 mg by mouth daily at * TYLENOL ORAL Take 1 tablet by mouth daily * ASPIRIN 81 MG TABLET,DELAYED * Take 81 mg by mouth once bennie* Problem List As Of Date 06/08/2017 Noted Resolved Lobular breast cancer (HCC) [C50.919] INVALID FOR*04/02/2015 Lobular breast cancer (HCC) [C50.919] INVALID FOR* Anemia due to vitamin B12 deficiency [D51.9] INVALID FOR* Pure hypercholesterolemia [E78.00] INVALID FOR* Vitamin D deficiency [E55.9] INVALID FOR* Encounter Status:Closed by WADE AMAYA CNP on 06/08/17 ALLERGIES ALLERGIES DATE TYPE / CODE NAME / CODE REACTION SEVERITY SOURCE 08/19/2017 Drug No Known Unknown [place] Allergy/416 Allergies/A67935 Community 894221(SNOM 0388(RXNORM) [facility] ED CT) Repository 05/13/2016 Environ/[address] [facility] 645709(SNOM ALLERGIES [facility] ED [facility]) Repository ENCOUNTERS ENCOUNTERS ADMIT/DISCHARGE ACCOUNT ADMITTING ENCOUNTER LOCATION SOURCE NUMBER CLASS 02/15/2018 [id number] [facility] ing:OPBD Repository 02/11/2018 [id number] [facility] ing:LAB Repository 02/03/2018 [id number] Ambulatory [facility] ing:OPBI Repository 01/25/2018/01/26/20 [id number] Ambulatory [address] [facility] ing:LAB Repository 12/29/2017/01/08/20 [id number] Ambulatory [address] [facility] ing:LAB Repository 12/14/2017/12/16/19 [id number] Ambulatory [address] Repository 11/26/2017/11/27/19 [id number] Ambulatory [address] [facility] ing:LAB Repository 10/28/2017/10/29/19 [id number] Ambulatory [address] [facility] ing:LAB Repository 10/04/2017/10/05/19 [id number] Ambulatory [address] [facility] ing:LAB Repository 09/06/2017/09/07/19 [id number] Ambulatory [address] [facility] ing:LAB Repository 08/25/2017 [id number] Ambulatory [facility] ing:[facility] Repository 08/25/2017 [id number] Ambulatory [facility]:W [facility] Repository 08/19/2017/08/20/19 [id number] Ambulatory B[facility] [place] [facility] Repository 08/06/2017/08/07/19 [id number] Ambulatory BMS[facility] [place] [address] [facility] Repository 08/06/2017 [id number] Ambulatory [facility] ing:LAB.FUTUR Repository E 08/03/2017/08/04/19 [id number] Ambulatory [facility] [place] [facility] Repository 08/02/2017 [id number] Ambulatory [facility]:B [place] [facility] Repository 08/02/2017/08/03/19 [id number] Ambulatory [address] Repository 07/30/2017/07/31/19 [id number] Ambulatory [address] Repository 07/21/2017/07/22/19 [id number] Ambulatory [address] Repository 07/21/2017/07/22/19 [id number] Ambulatory [address] Repository 07/21/2017/07/29/19 [id number] Ambulatory [address] Repository 06/08/2017/06/10/19 [id number] Ambulatory [address] Repository PAYERS PAYERS ENCOUNTER GUARANTOR PAYER SUBSCRIBER SOURCE 02/15/2018 TAMMI K Primary TAMMI K [place] [id number] Insurance:MEDICARE LEISTDOB: Community [place] PART A [facility] [id number] Repository [address]Brk: 330 [id number] [phone] () Date:2017-12-14 02/15/2018 Secondary TAMMI K [place] Insurance:ANTHEMPolic LEISTDOB: Community y Number: [id number] Hospital [id number] Repository Date:1056-35-57QK [address] [place] [address]49[address]ZA: 02/15/2018 Tertiary NOT GIVENUNK [place] Insurance:SELF PAY [facility] Number: Effective Repository Date:2017-12-14 02/11/2018 TAMMI K Primary TAMMI K [place] [id number] Insurance:MEDICARE LEISTDOB: [facility] PART A [facility] [id number] Number[place] Repository [address]Gxe: 330 [id number] [phone] () Date:2017-08-16 02/11/2018 Secondary TAMMI K [place] Insurance:ANTHEMPolic LEISTDOB: Community y Number: [id number] Hospital [id number] Repository Date:9878-88-38VI [address] [place] [address] 50694PS: 02/11/2018 Tertiary NOT GIVENUNK [place] Insurance:SELF PAY [facility] Number: Effective Repository Date:2018-02-07 02/03/2018 TAMMI K Primary TAMMI K [place] [id number] Insurance:MEDICARE LEISTDOB: Community [place] PART [id number] [place] [facility] Repository [address]Tsy: 330 [id number] [phone] () Date:2017-12-14 02/03/2018 Secondary TAMMI K [place] Insurance:ANTHEMPolic LEISTDOB: Community y Number: [id number] Hospital [id number] Repository Date:1577-66-00XG [address] [place] [address] 65652GK: 02/03/2018 Tertiary NOT GIVENUNK [place] Insurance:SELF PAY [facility] Number: Effective Repository Date:2017-12-14 01/25/2018 TAMMI K Primary TAMMI K [place] [id number] Insurance:MEDICARE LEISTDOB: [facility] PART A [facility] [id number] [place] Number[place] Repository [address]Twq: 330 [id number] [phone] () Date:2017-08-16 01/25/2018 Secondary TAMMI K [place] Insurance:ANTHEMPolic LEISTDOB: Community y Number: [id number] Hospital [id number] Repository Date:6626-00-28WU [address]VAWSF [place] [address]KS: 01/25/2018 Tertiary NOT GIVENUNK [place] Insurance:SELF PAY [facility] Number: Effective Repository Date:2018-01-10 12/29/2017 TAMMI K Primary TAMMI K [place] [id number] Insurance:MEDICARE LEISTDOB: Community [place] PART A [facility] [id number] [place] Number[place] Repository [address]Kxi: 330 [id number] [phone] () Date:2017-08-16 12/29/2017 Secondary TAMMI K [place] Insurance:ANTHEMPolic LEISTDOB: Community y Number: [id number] Hospital [id number] Repository Date:5084-23-67QX [address], [place] [address]BH: 12/29/2017 Tertiary NOT GIVENUNK [place] Insurance:SELF PAY [facility] Number: Effective Repository Date:2017-12-09 11/26/2017 TAMMI K Primary TAMMI K [place] [id number] Insurance:MEDICARE LEISTDOB: Community [place] PART A [facility] [id number] [place] Number[place] Repository [address]Rvp: [phone] [id number] [phone] (HP) Date:2017-08-16 11/26/2017 Secondary TAMMI K [place] Insurance:ANTHEMPolic LEISTDOB: Community y Number: [id number] Hospital [id number] Repository Date:8616-28-85[address], [place] [address]IU: 11/26/2017 Tertiary NOT GIVENUNK [place] Insurance:SELF PAY [facility] Number: Effective Repository Date:2017-11-10 10/28/2017 TAMMI K Primary TAMMI K [place] [id number] Insurance:MEDICARE LEISTDOB: Community [place] PART A [facility] [id number] [facility] [place] Number[place] Repository [address]Iwx: [phone] [id number] [phone] () Date:2017-08-16 10/28/2017 Secondary TAMMI K [place] Insurance:ANTHEMPolic LEISTDOB: Community y Number: [id number] Hospital [id number] Repository Date:6530-37-38[address]FRUFNM, [place] [address]OG: 10/28/2017 Tertiary NOT GIVENUNK [place] Insurance:SELF PAY [facility] Number: Effective Repository Date:2017-10-12 10/04/2017 TAMMI K Primary TAMMI K [place] [id number] Insurance:MEDICARE LEISTDOB: Community [place] PART A [facility] [id number] [facility] [place] Number[place] Repository [address]Ynx: [phone] [id number] [phone] (HP) Date:2017-08-16 10/04/2017 Secondary TAMMI K [place] Insurance:ANTHEMPolic LEISTDOB: Community y Number: [id number] Hospital [id number] Repository Date:1582-88-65LO [address]LG [place] [address]EW: 10/04/2017 Tertiary NOT GIVENUNK [place] Insurance:SELF PAY [facility] Effective Repository Date:2017-09-09 09/06/2017 TAMMI K Primary TAMMI K [place] [id number] Insurance:MEDICARE LEISTDOB: Community [facility] [id number] Number[place] Repository [address]Qga: [phone] [id number] [phone] () Date:2017-08-16 09/06/2017 Secondary TAMMI K [place] Insurance:ANTHEMPolic LEISTDOB: Community y Number: [id number] Hospital [id number] Repository Date:6490-38-92AV [address]LLBMV[address] [place] [address]WA: 09/06/2017 Tertiary NOT GIVENUNK [place] Insurance:SELF PAY [facility] Number: Effective Repository Date:2017-08-16 08/25/2017 TAMMI K Primary TAMMI K [place] [id number] Insurance:MEDICARE LEISTDOB: [facility] [id number] [facility] [place] Number: Repository [address]Yvf: [phone] [id number] [phone] () Date:2017-08-03 08/25/2017 Secondary TAMMI K [place] Insurance:ANTHEMPolic LEISTDOB: Community y Number: [id number] Hospital [id number] Repository Date:9420-66-92SA [address]DRFSPKW [place] [address]UJ: 08/25/2017 Tertiary NOT GIVENUNK [place] Insurance:SELF PAY [facility] Number: Effective Repository Date:2017-08-03 08/25/2017 TAMMI K Primary TAMMI K [place] [id number] Insurance:MEDICARE LEISTDOB: Community [place] PART A [place] [id number] Number: Repository [address]Mha: [phone] [id number] [phone] (HP) Date:2017-08-03 08/25/2017 Secondary TAMMI K [place] Insurance:ANTHEMPolic LEISTDOB: Community y Number: [id number] Hospital [id number] Repository Date:1823-20-37BU [address]CZTYRTA, [place] [address]VF: 08/25/2017 Tertiary NOT GIVENUNK [place] Insurance:SELF PAY [facility] Number: Effective Repository Date:2017-08-25 08/19/2017 TAMMI K Primary TAMMI K [place] [id number] Insurance:MEDICARE LEISTDOB: Community [place] PART A [facility] [id number] [facility] [place] Number[place] Repository [address]Qtt: 330 [id number] [phone] () Date:2017-08-03 08/19/2017 Secondary TAMMI K [place] Insurance:ANTHEMPolic LEISTDOB: Community y Number: [id number] Hospital [id number] Repository Date:3708-56-60BA [address]FVIODGX, [place] [address]YV: 08/19/2017 Tertiary NOT GIVENUNK [place] Insurance:SELF PAY [facility] Number: Effective Repository Date:2017-08-19 08/06/2017 TAMMI K Primary TAMMI K [place] [id number] Insurance:MEDICARE LEISTDOB: Community [place] PART A [facility] [id number] Number[place] Repository [address]Rmx: [phone] [id number] [phone] () Date:2017-08-06 08/06/2017 Secondary TAMMI K [place] Insurance:ANTHEMPolic LEISTDOB: Community y Number: [id number] Hospital [id number] Repository Date:4574-93-73RB [address]AJAQMSH, [place] [address]ZM: 08/06/2017 Tertiary NOT GIVENUNK [place] Insurance:SELF PAY [facility] Number: Effective Repository Date:2017-08-06 08/06/2017 TAMMI K Primary TAMMI K [place] [id number] Insurance:MEDICARE LEISTDOB: Community [place] PART A [facility] [id number] Number[place] Repository [address]Bkj: [phone] [id number] [phone] (HP) Date:2017-08-04 08/06/2017 Secondary TAMMI K [place] Insurance:ANTHEMPolic LEISTDOB: Community y Number: [id number] Hospital [id number] Repository Date:8144-40-52UD [address]SRRRTT[address] [address]: 08/06/2017 Tertiary NOT GIVENUNK [place] Insurance:SELF PAY [facility] Number: Effective Repository Date:2017-08-04 08/03/2017 TAMMI K Primary TAMMI K [place] [id number] Insurance:MEDICARE LEISTDOB: Community [place] PART A [facility] [id number] [facility] [place] Number: Repository [address]Dqg: [phone] [id number] [phone] () Date:2017-08-02 08/03/2017 Secondary TAMMI K [place] Insurance:ANTHEMPolic LEISTDOB: Community y Number: [id number] Hospital [id number] Repository Date:3843-22-25IA [address]GBYJKTK, [place] [address]WG: 08/03/2017 Tertiary NOT GIVENUNK [place] Insurance:SELF PAY [facility] Number: Effective Repository Date:2017-08-03 08/02/2017 TAMMI K Primary TAMMI K [place] [id number] Insurance:MEDICARE LEISTDOB: Community [place] PART A [facility] [id number] [place] Number[place] Repository [address]Jhm: [phone] [id number] [phone] (HP) Date:2017-08-02 08/02/2017 Secondary TAMMI K [place] Insurance:ANTHEMPolic LEISTDOB: Community y Number: [id number] Hospital [id number] Repository Date:2638-09-67FY IZABEL 194522QUPIP[place], [place] [address]NR: 08/02/2017 Tertiary NOT GIVENUNK [place] Insurance:SELF PAY [facility] Number: Effective Repository Date:2017-08-02
== END 2018-01-25 12:00 | disposition home or self-care (01) ==
LOC: LAB 11:50
PROVIDERS: Family Provider Internal Medicine; PCP Internal Medicine; Referring Provider Internal Medicine Cardiovascular Disease; Visit Provider Internal Medicine Cardiovascular Disease
DX: I48.1 Persistent atrial fibrillation (principal); Z79.01 Long term (current) use of anticoagulants
CPT/HCPCS: 36416; 85610

== ENCOUNTER → 2018-02-03 10:35 | Outpatient (CLI) | payer MEDICARE, BC, SELFPAY ==
--- NOTE | 2018-02-03 10:38 | BI_ITS ---
MAMMOGRAPHY - BILATERAL SCREENING 3-D NNAMDI SYNTHESIS REASON FOR EXAM: Female, 77 years old. Bilateral Screening 3-D tomosynthesis PERTINENT HISTORY: History of breast cancer in daughter at age 41. History of lumpectomy in 2016 with radiation therapy.. TECHNIQUE: 2-D mammograms and 3-D Nnamdi synthesis of the breast (s) were performed. CAD was performed. COMPARISON: February 02, 2017, January 30, 2016 FINDINGS: The breast composition is there are postlumpectomy changes in the left breast unaltered. There are stable lymph nodes in the right axilla. Scattered benign calcifications are seen. No dense spiculated masses or suspicious microcalcifications are identified. No architectural distortion is identified. There is no skin thickening or retraction. There has been no significant change since the prior study. BI/SCREENING MAMM (CAD), BILAT IMPRESSION: No mammographic signs of malignancy. Routine yearly mammograms recommended. ASSESSMENT CATEGORY: BIRADS Category 2: Benign. A letter regarding these results will be sent to the patient by the facility within 30 days. FOLLOW UP RECOMMENDATION: Yearly follow up mammogram recommended. (A) Approximately 10% of breast cancers are not detected by mammography. A normal mammogram should not delay biopsy of a clinically suspicious abnormality. Electronically Signed: Alexandr Alaniz MD at 10:48 EST , Service support ,
== END ==
PROVIDERS: Family Provider Internal Medicine; PCP Internal Medicine; Visit Provider Nurse Practitioner
DX: Z12.31 Encounter for screening mammogram for malignant neoplasm of breast (principal); C50.912 Malignant neoplasm of unspecified site of left female breast
CPT/HCPCS: 77063; 77067

== ENCOUNTER 2018-02-11 12:26 | Outpatient (RCR) | payer MEDICARE, BC, SELFPAY ==
[2018-02-11 14:40] LABS: International Normalized Ratio 2.9; Prothrombin Time (Protime)PT. 30.7 SECONDS (11.7-14.9)
== END 2018-02-11 13:26 | disposition home or self-care (01) ==
LOC: LAB 12:26
PROVIDERS: Family Provider Internal Medicine; PCP Internal Medicine; Referring Provider Internal Medicine Cardiovascular Disease; Visit Provider Internal Medicine Cardiovascular Disease
DX: I48.1 Persistent atrial fibrillation (principal); Z79.01 Long term (current) use of anticoagulants
CPT/HCPCS: 36415; 85610

== ENCOUNTER → 2018-02-15 10:54 | Outpatient (CLI) | payer MEDICARE, BC, SELFPAY ==
--- NOTE | 2018-02-15 11:08 | BD_ITS ---
STUDY: DUAL ENERGY X-RAY ABSORPTIOMETRY / DXA REASON FOR EXAM: Female, 77 years old. The patient is postmenopausal. Loss of height. TECHNIQUE: Bone Mineral Density (BMD) measurements of lumbar spine and bilateral hips were obtained. COMPARISON: Comparison is made with prior examination dated February 11, 2016. FINDINGS: Lumbar Spine (L1-L4): g/cm2 (1.000) / T-score (-1.5) / Z-score (0.3) Findings are suggestive of osteopenia with a moderate fracture risk. Left Femur Total: g/cm2 (0.841) / T-score (-1.3) / Z-score (0.4) Left Femoral Neck: g/cm2 (0.788) / T-score (-1.8) / Z-score (0.1) Right Femur Total: g/cm2 (0.842) / T-score (-1.3) / Z-score (0.4) Right Femoral Neck: g/cm2 (0.818) / T-score (-1.6) / Z-score (0.3) The T-Scores on the most recent prior examination were: Lumbar Spine (L1-L4): There has been worsening of bone density since the previous examination. Left Femur Total: which represents a worsening of 1.4%. Right Femur Total: which represents a worsening of 1.3%. BD/Dexa Bone Density Study IMPRESSION: The patient is considered osteopenic as outlined below according to World [employer] (WHO) criteria with a moderate fracture risk. There has been worsening of bone density since the previous examination. Reference Information: The T-score is the number of standard deviations above or below the standard which is normal for young adults at their peak bone mineral density. The World Health Organization (WHO) interprets the T-scores as follows: Above -1 Normal bone density Between -1 and -2.5 Osteopenia Equal to / or below -2.5 Osteoporosis As a practical clinical guideline, osteopenia may be graded as follows: Mild -1 through -1.5 Moderate -1.6 through -2.0 Severe -2.1 through -2.4 The Z-score is the number of standard deviations above or below age-matched controls. A Z-score of less than -1.5 would be considered abnormal. References: 1. NIH Osteoporosis and Related Bone Diseases http://www.osteo.org 2. International Society for Clinical Densitometry http://www.iscd.org 3. National Osteoporosis Foundation http://www.nof.org Electronically Signed: Brian Whiting MD at 14:09 EST Tel [phone], Service support ,
== END ==
PROVIDERS: Family Provider Internal Medicine; PCP Internal Medicine; Visit Provider Nurse Practitioner
DX: Z78.0 Asymptomatic menopausal state (principal); Z79.811 Long term (current) use of aromatase inhibitors
CPT/HCPCS: 77080

== ENCOUNTER → 2018-03-05 08:21 | Outpatient (CLI) | payer MEDICARE, BC, SELFPAY ==
[2018-03-05 09:34] LABS: International Normalized Ratio 2.5; Prothrombin Time (Protime)PT. 26.8 SECONDS (11.7-14.9)
[2018-03-05 09:47] LABS: AST(SGOT) 24 U/L (15-37); Alanine Aminotransfer ALT/SGPT 28 U/L (13-56); Albumin, Serum 3.8 g/dL (3.2-5.0); Alkaline Phosphatase 94 U/L (45-117); Bilirubin, Direct 0.12 mg/dL (0.00-0.30); Cholesterol 172 mg/dL (200); Globulin 3.6 g/dL (2.2-4.2); High Density Lipoprotein 46 mg/dL; Protein, Total 7.4 g/dL (6.4-8.2); Triglycerides 213 mg/dL; Very Low Density Lipoprotein 43 mg/dL (5-40)
== END ==
PROVIDERS: Family Provider Internal Medicine; PCP Internal Medicine; Referring Provider Nurse Practitioner Family; Visit Provider Nurse Practitioner Family
DX: E78.5 Hyperlipidemia, unspecified (principal); I48.1 Persistent atrial fibrillation; Z79.01 Long term (current) use of anticoagulants
CPT/HCPCS: 36415; 80061; 80076; 85610

== ENCOUNTER 2018-04-05 13:59 | Outpatient (RCR) | payer MEDICARE, BC, SELFPAY ==
[2018-03-14 14:01] VITALS: BMI 27.6
[2018-04-05 16:37] LABS: International Normalized Ratio 2.2; Prothrombin Time (Protime)PT. 24.4 SECONDS (11.7-14.9)
== END 2018-04-07 14:01 | disposition home or self-care (01) ==
LOC: LAB 13:59
PROVIDERS: Family Provider Internal Medicine; PCP Internal Medicine; Referring Provider Internal Medicine Cardiovascular Disease; Visit Provider Internal Medicine Cardiovascular Disease
DX: I48.1 Persistent atrial fibrillation (principal); Z79.01 Long term (current) use of anticoagulants
CPT/HCPCS: 36415; 85610

== ENCOUNTER 2018-05-07 11:24 | Outpatient (RCR) | payer MEDICARE, BC, SELFPAY ==
[2018-03-14 14:01] VITALS: BMI 27.6
[2018-05-07 12:28] LABS: Prothrombin Time (Protime)PT. 31.2 SECONDS (11.7-14.9)
== END 2018-05-07 12:00 | disposition home or self-care (01) ==
LOC: LAB 11:24
PROVIDERS: Family Provider Internal Medicine; PCP Internal Medicine; Referring Provider Internal Medicine Cardiovascular Disease; Visit Provider Internal Medicine Cardiovascular Disease
DX: I48.1 Persistent atrial fibrillation (principal); Z79.01 Long term (current) use of anticoagulants
CPT/HCPCS: 36415; 85610

== ENCOUNTER 2018-06-08 13:20 | Outpatient (RCR) | payer MEDICARE, BC, SELFPAY ==
[2018-03-14 14:01] VITALS: BMI 27.6
[2018-06-08 14:30] LABS: International Normalized Ratio 2.9; Prothrombin Time (Protime)PT. 30.6 SECONDS (11.7-14.9)
== END 2018-06-08 15:00 | disposition home or self-care (01) ==
LOC: LAB 13:20
PROVIDERS: Family Provider Internal Medicine; PCP Internal Medicine; Referring Provider Internal Medicine Cardiovascular Disease; Visit Provider Internal Medicine Cardiovascular Disease
DX: I48.1 Persistent atrial fibrillation (principal); Z79.01 Long term (current) use of anticoagulants
CPT/HCPCS: 36415; 85610

== ENCOUNTER → 2018-06-23 09:14 | Outpatient (CLI) | payer MEDICARE, BC, SELFPAY ==
[2018-03-14 14:01] VITALS: BMI 27.6
--- NOTE | 2018-06-23 09:17 | BI_ITS ---
MAMMOGRAPHY - UNILATERAL DIAGNOSTIC: LEFT BREAST REASON FOR EXAM: Female, 77 years old. Left breast lump. PERTINENT HISTORY: Personal history of breast cancer. Prior left lumpectomy. Daughter with breast cancer. TECHNIQUE: Digital unilateral breast iraesma (3D mammographic acquisition) in the CC and MLO projections. 2-D mediolateral oblique (MLO) and craniocaudad (CC) views of both breasts were obtained. CAD: Full Field Digital Mammography with Computer Added Detection was performed. COMPARISON: Comparison is made with prior study dated February 03, 2018 and February 02, 2017. FINDINGS: Breast Composition: There are scattered areas of fibroglandular density. With again, there is architectural distortion in the upper lateral aspect of the left breast with prior lumpectomy. Stable skin thickening. There is evidence of a 1.1 cm x 1 cm nodular density in the anterior slightly lateral aspect of the breast. Tiny calcifications seen within it. This corresponds to the palpable abnormality. Correlation with ultrasound is recommended. No other significant abnormalities are identified. BI/DIAG MAMM W/CAD, UNILAT IMPRESSION: 1.1 cm x 1 cm nodular density in the anterior lateral superior aspect of the left breast as described. Correlation with ultrasound is recommended. ASSESSMENT CATEGORY: BIRADS Category 0: Incomplete. Need additional imaging evaluation. A letter regarding these results will be sent to the patient by the facility within 30 days. Approximately 10% of breast cancers are not detected by mammography. A normal mammogram should not delay biopsy of a clinically suspicious abnormality. Electronically Signed: Brian Whiting, at 13:51 EDT , Service support ,
--- NOTE | 2018-06-23 09:19 | US_ITS ---
We are attempting to reach an attending provider to discuss findings. An addendum with communication details will be sent when the communication is complete. STUDY: ULTRASOUND BREAST - LEFT REASON FOR EXAM: Female, 77 years old. Palpable lump left breast. History of breast carcinoma with prior left lumpectomy. TECHNIQUE: Axial and longitudinal images of the LEFT breast were performed with a high resolution ultrasound transducer. COMPARISON: Comparison is made with prior mammogram done earlier in the day and prior ultrasound of the left breast dated January 28, 2015. FINDINGS: LEFT Breast: At the 12:00 position in the breast at 2 cm from nipple, there is a 9 mm x 8 mm x 8 mm hypoechoic solid density with posterior acoustical shadowing. This also evidence of a 9 mm x 8 mm by 8mm hypoechoic subtle nodule at the 12:00 position breast at 2 cm from the nipple. These were not present on prior examination. A biopsy is recommended. There is also evidence of a 9 mm x 17 mm x 60 mm ill-defined hypoechoic density with posterior acoustical shadowing at the 12:00 position breast at 3 cm from the nipple. This is close to the lumpectomy site. A biopsy is recommended. US/Breast Limited Unilateral IMPRESSION: Suspicious lesions as described, biopsy recommended. ASSESSMENT CATEGORY: BIRADS Category 4: Suspicious - Biopsy Should Be Considered. A letter regarding these results will be sent to the patient by the facility within 30 days. Pending Final Proof Editing
== END ==
PROVIDERS: Family Provider Internal Medicine; PCP Internal Medicine; Referring Provider Nurse Practitioner; Visit Provider Nurse Practitioner
DX: N63.20 Unspecified lump in the left breast, unspecified quadrant (principal); C50.912 Malignant neoplasm of unspecified site of left female breast
CPT/HCPCS: 76642; 77061; 77065; G0279

== ENCOUNTER → 2018-07-06 11:46 | Outpatient (CLI) | payer MEDICARE, BC, SELFPAY ==
[2018-06-28 09:14] VITALS: BMI 27.6
--- NOTE | 2018-07-06 | BRBX_PTH ---
PATIENT: RAMON ROSALES LOC: [facility] U#:[id number] AGE/SX: 84/F ROOM: RE07/06/[address]: Dr. Eduardo Lorenzo MD : 1940 BED: DIS: SPEC #: [id number] RECD: 07/06/18 13:37 STATUS: TEREZA BRAD #: [id number] CATINA: 07/06/18 00:[address]: Eduardo Lorenzo DEPT: SURGICAL PATHOLOGY RECD BY: Cecilio Bates ENTERED: 07/06/18 14:07 SP TYPE: BREAST BX OTHR DR: Dr. Celine Garcia MD Tissues: A - Left breast, NOS B - Left breast, NOS C - Left breast, NOS Procedures: Surgery Specimen Level IV HEADER OPERATION: Left breast biopsy PRE-OP DIAGNOSIS: Left breast mass, multiple TISSUE SUBMITTED: A - Upper outer quadrant, 2 o'clock, 3 cm from nipple, B - 12 o'clock, 2 cm from nipple UOQ, C - 1 o'clock, 2 cm from nipple ISCHEMIC TIME: 1 minute FIXATION TIME: 6 hours MICROSCOPIC DIAGNOSIS A. Left breast, upper outer quadrant at 2 o'clock, core biopsy: Densely collagenized tissue with rare macrophages. No evidence of malignancy. See comment. B. Left breast, upper outer quadrant at 12 o'clock, needle core biopsy: Fat necrosis of fibrosis, collagenized tissue and calcifications of vessel wall. No evidence of malignancy. See comment. C. Left breast at 1 o'clock, 2 cm from nipple, core biopsy: Fat necrosis of fibrosis, collagenized tissue and associated microcalcifications. No evidence of malignancy. AM:james 07/07/18 COMMENT A. Glandular epithelium is not represented in the biopsy. B. Immunohistochemistry ([id number]) supports the above diagnosis. MICROSCOPIC DESCRIPTION Slides are reviewed. GROSS DESCRIPTION A - Received in fixative is one container labeled with the patient's name and designated upper outer quadrant, 2 o'clock. The specimen consists of two martin-white needle core biopsies ranging in length from 0.9 to 1 cm. The specimen is totally submitted in one cassette. B - Received in fixative is one container labeled with the patient's name and designated 12 o'clock, 2 cm from nipple. The specimen consists of multiple irregular fragments of yellow to reddish-pink soft tissue that in aggregate measure 1.5 x 1 x 0.3 cm. The specimen is totally submitted in two cassettes. C - Received in fixative is one container labeled with the patient's name and designated 1 o'clock, 2 cm from nipple. The specimen consists of multiple irregular fragments of reddish-pink to martin soft tissue that in aggregate measure 1.2 x 0.5 x 0.3 cm. The specimen is totally submitted in one cassette. / CE:james 07/06/18 TC:5 CPT: 78869 x3
--- NOTE | 2018-07-06 | IMM_PTH ---
PATIENT: RAMON ROSALES LOC: [facility] U#:[id number] AGE/SX: 84/F ROOM: RE07/06/[address]: Dr. Eduardo Lroenzo MD : 1940 BED: DIS: SPEC #: [id number] RECD: 07/07/18 10:56 STATUS: TEREZA REQ #: [id number] CATINA: 07/06/18 00:[address]: Eduardo Lorenzo DEPT: IMMUNOHISTOCHEMISTRY RECD BY: Carlita Cisneros ENTERED: 07/07/18 10:57 SP TYPE: IMMUNO OTHR DR: Dr. Celine Garcia MD Tissues: B - Left breast, NOS Procedures: CK5-6 (initial) SMA (add) CALPONIN-1 (add) KI-67 (add) MACRO (add) P53 (add) Vimentin (add) Pankeratin (add) GATA3 (add) P40 (add) PHYSICIAN & INSTITUTION [place] [id number] SPECIMEN INFORMATION: Tissue Source: B - Left breast, 12 o'clock, 2 cm from nipple Clinical Info: Left breast mass Specimen Number: [id number] B1 CPT code: 52207, 14120 x9 METHODOLOGY: Deparaffinized sections of prefer/formalin-fixed tissue or PAP/DQ stained slides are incubated with monoclonal/polyclonal antibodies/oligonucleotide probes. Localization is made via biotin free immunoperoxidase method. Appropriate controls are performed and reacted as expected. Results on target cell population are indicated in the following table: RESULTS: ANTIBODY / CLONE RESULT Block B1 P40 (BC28) negative Actin (1A4) positive Calponin-1 (JE311L) positive CK5-6 (D5 & 1684) negative AE1-3 (AE1/AE3/PCK26) negative Macro (HAM-56) positive Vimentin (V9) positive P53 (DO-7) negative Ki-67 (30-9) positive, low GATA3 (L50-823) negative These tests were developed and their performance characteristics determined by [facility]. They may not have been cleared or approved by the U.S. Food and Drug Administration. The FDA has determined that such clearance or approval is not necessary. INTERPRETATION: B. Left breast, 12 o'clock, 2 cm from nipple, biopsy: Benign breast tissue. Consistent with fat necrosis. AM:james 07/08/18
--- NOTE | 2018-07-06 11:49 | US_ITS ---
STUDY: ULTRASOUND BREAST - LEFT REASON FOR EXAM: Female, 77 years old. Ultrasound guided left breast biopsy. TECHNIQUE: Axial and longitudinal images of the LEFT breast were performed with a high resolution ultrasound transducer. COMPARISON: Comparison is made with prior ultrasound the left breast dated June 23, 2018 and prior mammogram dated June 23, 2018. FINDINGS: LEFT Breast: Under direct sonographic guidance, the surgeon performed core biopsies of the 3 lesions at the 2:00, 12:00 and 1:00 positions of the breast. US/US Breast Biopsy 1st Lesion IMPRESSION: Successful ultrasound-guided biopsy of 3 suspicious lesions in the breast. ASSESSMENT CATEGORY: BIRADS Category 4: Suspicious - Biopsy Should Be Considered. A letter regarding these results will be sent to the patient by the facility within 30 days. Electronically Signed: Brian Whiting, at 14:06 EDT , Service support ,
== END ==
PROVIDERS: Family Provider Internal Medicine; PCP Internal Medicine; Referring Provider Surgery; Visit Provider Surgery
DX: N60.32 Fibrosclerosis of left breast (principal); R92.8 Other abnormal and inconclusive findings on diagnostic imaging of breast
CPT/HCPCS: 19083; 19084; 88305; 88341; 88342

== ENCOUNTER 2018-08-02 14:40 | Outpatient (RCR) | payer MEDICARE, BC, SELFPAY ==
[2018-06-28 09:14] VITALS: BMI 27.6
[2018-07-18 15:06] LABS: International Normalized Ratio 1.8; Prothrombin Time (Protime)PT. 20.8 SECONDS (11.7-14.9)
[2018-08-02 17:34] LABS: International Normalized Ratio 2.3; Prothrombin Time (Protime)PT. 25.7 SECONDS (11.7-14.9)
== END 2018-08-02 15:00 | disposition home or self-care (01) ==
LOC: LAB 14:40
PROVIDERS: Family Provider Internal Medicine; PCP Internal Medicine; Referring Provider Internal Medicine Cardiovascular Disease; Visit Provider Internal Medicine Cardiovascular Disease
DX: I48.1 Persistent atrial fibrillation (principal); Z79.01 Long term (current) use of anticoagulants
CPT/HCPCS: 36415; 85610

== ENCOUNTER 2018-08-19 10:30 | Outpatient (RCR) | payer MEDICARE, BC, SELFPAY ==
[2018-06-28 09:14] VITALS: BMI 27.6
[2018-08-19 12:32] LABS: International Normalized Ratio 2.9; Prothrombin Time (Protime)PT. 30.8 SECONDS (11.7-14.9)
== END 2018-08-19 11:00 | disposition home or self-care (01) ==
LOC: LAB 10:30
PROVIDERS: Family Provider Internal Medicine; PCP Internal Medicine; Referring Provider Internal Medicine Cardiovascular Disease; Visit Provider Internal Medicine Cardiovascular Disease
DX: I48.1 Persistent atrial fibrillation (principal); Z79.01 Long term (current) use of anticoagulants
CPT/HCPCS: 36415; 85610

== ENCOUNTER 2018-09-21 13:57 | Outpatient (RCR) | payer MEDICARE, BC, SELFPAY ==
[2018-06-28 09:14] VITALS: BMI 27.6
[2018-09-21 14:55] LABS: Prothrombin Time (Protime)PT. 31.3 SECONDS (11.7-14.9)
[2018-09-21 16:26] LABS: Prothrombin Time Fingerstick 41.1 SEC (11.9-14.4)
== END 2018-09-21 16:00 | disposition home or self-care (01) ==
LOC: LAB 13:57
PROVIDERS: Family Provider Internal Medicine; PCP Internal Medicine; Referring Provider Internal Medicine Cardiovascular Disease; Visit Provider Internal Medicine Cardiovascular Disease
DX: I48.1 Persistent atrial fibrillation (principal); Z79.01 Long term (current) use of anticoagulants
CPT/HCPCS: 36415; 36416; 85610

== ENCOUNTER 2018-10-26 07:34 | Day surgery (SDC) | payer MEDICARE, BC, SELFPAY ==
[2018-10-20 14:28] VITALS: BMI 27.4
--- NOTE | 2018-10-21 09:32 | RAD_ITS ---
STUDY: X-RAY CHEST REASON FOR EXAM: Female, 77 years old. Preoperative heart catheterization TECHNIQUE: Two view of the chest were performed COMPARISON: 18 May 2016 FINDINGS: Lungs are clear. There is no pneumothorax, pulmonary edema, pleural effusions or cardiomegaly. Osseous structures are intact. There is no gas under the diaphragms. [ There is a right paracardiac opacity, most probably fat pad as demonstrated on prior CT.] RAD/Chest PA and Lateral IMPRESSION: 1. No acute cardiorespiratory disease. [ ] Electronically Signed: Santo Casey, at 17:43 EDT Tel , Service support ,
[2018-10-21 10:43] LABS: Hematocrit 39.5 % (37-47); Mean Corp Hgb Conc 32.9 g/dL (32-36); Mean Corpuscular Hgb 33.9 pg (27.0-32.0); Mean Corpuscular Volume 103.1 fL (81-99); Mean Platelet Vol. 9.9 fl (6.2-12.0); Platelet Count 268 K/mm3 (150-450); RBC Distribution Width CV 12.3 % (11.6-14.6); RBC Distribution Width SD 45.9 fl (35.1-43.9); Red Blood Count 3.83 M/mm3 (4.2-5.4); White Blood Count 10.7 K/mm3 (4.4-11.0)
[2018-10-21 10:52] LABS: International Normalized Ratio 2.7; Prothrombin Time (Protime)PT. 28.8 SECONDS (11.7-14.9)
[2018-10-21 10:53] LABS: Partial Thromboplast Time 50.1 Seconds (24.1-36.2)
[2018-10-21 11:19] LABS: Anion Gap 5 (5-15); BUN 28 mg/dL (7-18); BUN/Creat Ratio 26.2 RATIO (10-20); Calcium,Total 9.3 mg/dL (8.5-10.1); Chloride 106 mmol/L (98-107); Creatinine, Serum 1.07 mg/dL (0.55-1.02); EST Glomerular Filtration Rate 53 mL/min (>60); Est Glom Filt Rate - Afr Amer 64 mL/min (>60); Glucose 107 mg/dL (74-106); Potassium 3.8 mmol/L (3.5-5.1); Sodium Level 140 mmol/L (136-145)
[2018-10-26 09:52] LABS: Prothrombin Time Fingerstick 14.5 SEC (11.9-14.4)
--- NOTE | 2018-10-26 11:08 | HP.PCM_ITS ---
Problem List (1) intermediate (current) use of anticoagulants Status: Acute (2) Abnormal EKG Status: Chronic (3) Hyperlipidemia Status: Chronic (4) Hypertension Status: Chronic (5) Non-rheumatic mitral regurgitation Status: Chronic (6) Persistent atrial fibrillation Status: Chronic (7) Secondary pulmonary arterial hypertension Status: Chronic History and Physical Date of Admission: 10/26/18 [facility] [address] [place] [address] OFFICE VISIT Date of Service: 10/20/18 MR#: [id number] Acct: [id number] Name: RAMON ROSALES Rep #: [id number] : 1940 Provider: Eduardo house MD Age/Sex: 77/F Location: [facility] [place] Status: Signed HPI HPI History of Present Illness Surgical H&P: Yes Details: HPI Chief Complaint: Follow-up of new onset atrial fibrillation, hypertension, pulmonary hyperte Details: RAMON ROSALES, is a 77 F who presents to the office today for evaluation of newly discovered atrial fibrillation. The patient is a nondiabetic, with a history of hypertension, hypercholesterolemia, no previous coronary disease, lifelong non- smoker, nondrinker, no previous TIA or CVA. Patient went in for a routine physical in her PCPs office and it was discovered she had an irregular heart rhythm. EKG confirmed atrial fibrillation with rapid ventricular response. Patient was placed on Coumadin and Lopressor therapy. She underwent an echocardiogram on 07/30/17 which showed moderate mitral regurgitation, LVEF of 55%, mild left atrial enlargement, and RVSP of 48 mmHg consistent with at least moderate pulmonary hypertension. Patient is unaware of her atrial fibrillation but does note decreased exercise and energy level starting about 12 months ago. She also has a history of lobular breast cancer status post lumpectomy in February 2015 and status post hysterectomy in 2004. Patient underwent a treadmill echocardiogram on 08/25/17 and when she went 3 minutes 43 seconds, had no wall motion changes, and stopped due to dyspnea on exertion. She had a hypertensive blood pressure response to exercise, but apparently has never had a heart catheterization. She is now here in follow-up. Since her last visit, the patient states that her shortness of breath and dyspnea on exertion are about the same perhaps a little worse. She states that she can walk on flat surface without too much difficulty but any kind of incline causes her to be dyspneic. Her blood pressure is much better controlled and yet she still continues to have dyspnea on exertion and shortness of breath. She denies any chest pain, angina but does complain of worsening shortness of breath and dyspnea on exertion. Her Lipitor has corrected her LDL elevation. She continues on diltiazem, Hyzaar, and Lopressor. She is also on warfarin for her paroxysmal atrial fibrillation. Further history, the patient denies ever having a sleep study although she does complain of significant daytime somnolence, and does not wake up well rested. She is uncertain whether she snores or not. She is compliant with her medications. She has never had a cardioversion. In our office today her blood pressure is 120/70, and her heart rate is 80 and are irregular. Her physical exam is as below. Her lipids dated 01/08/17 show an HDL of 54 and an LDL of 153 while on red yeast rice. Repeat lipids on 03/05/18 show an LDL of 83 and an HDL of 40 while on Lipitor. Intake Vital Signs 10/20/18 Height 5 ft 6 in 10/20/18 Weight: 170 lb 10/20/18 Body Mass Index (BMI) 27.4 10/20/18 Blood Pressure 120/70 10/20/18 Blood Pressure Location Lt brachial 10/20/18 Respiratory Rate 20 H 10/20/18 Pulse Rate 92 10/20/18 Pulse Source Auscultation Intake Visit Reasons: 6 M FU Psychiatric Rn Required: No Is patient in pain?: No Allergies No Known Allergies Allergy (Verified 10/20/18 14:36) Medications Acetaminophen [Pain Relief] 500 mg PO QHS 02/28/15 [History Confirmed 07/13/18] Aspirin [Adult Low Dose Aspirin EC] 81 mg PO DAILY 02/28/15 [History Confirmed 10/20/18] Calcium Carbonate/Vitamin D3 [Calcium 600-Vit D3 800 Tablet] 1 ea PO BID 02/28/15 [History Confirmed 10/20/18] DiphenhydrAMINE [Benadryl] 25 mg PO QHS PRN PRN 02/28/15 [History Confirmed 07/13/18] Multivitamins,Therapeutic [Multivitamin] 1 tab PO DAILY 02/28/15 [History Confirmed 10/20/18] Anastrozole 1 mg PO DAILY 05/13/16 [History Confirmed 10/20/18] atorvastatin 20 mg tablet 20 mg PO QDAY #90 tab 03/14/18 [Rx Confirmed 10/20/18] diltiazem ER 120 mg tablet,extended release 24 hr 120 mg PO DAILY #30 tab 03/14/18 [Rx Confirmed 10/20/18] losartan 100 mg-hydrochlorothiazide 25 mg tablet 1 tab PO DAILY #90 tab 03/14/18 [Rx Confirmed 10/20/18] metoprolol tartrate 50 mg tablet 50 mg PO BID #180 tab 03/14/18 [Rx Confirmed 10/20/18] warfarin 2 mg tablet 4 mg PO QDAY #180 tab 03/14/18 [Rx Confirmed 10/20/18] PFS Medical History Abnormal EKG (Chronic) Hyperlipidemia (Chronic) Secondary pulmonary arterial hypertension (Chronic) Non-rheumatic mitral regurgitation (Chronic) Persistent atrial fibrillation (Chronic) Hypertension (Chronic) Breast cancer (Chronic) Hemorrhoids (Chronic) Cellulitis (Resolved) Breast cancer of upper-outer quadrant of left female breast (Inactive) Surgical History History of colonoscopy (Acute ~03/2017) History of left breast biopsy (Acute ~07/06/18) History of hysterectomy (Chronic) History of lumpectomy of left breast (Chronic) Family History Mother Heart disease chf Father Hypertension Social History (Updated 10/20/18 @ 15:05 by Eduardo Victoria MD) Smoking Status: Never smoker ROS Const Const: Positive for fatigue and other (Has been more tired and BP has been low); negative for weakness, body ache, fever(s), headache(s), chills, frequent falls, night sweats, daytime sleepiness, difficulty sleeping, excessive sweating, weight gain, weight loss, increased appetite, poor appetite or anorexia Eyes Eyes: Negative for blind spots, loss of peripheral vision, transient loss of vision, blurry vision, change in vision, double vision, floaters, tunnel vision or other ENT ENT: Negative for headache(s), dizziness, hearing loss, tinnitus, Nosebl eed/epistaxis, balance problems, post nasal drip, lip swelling, tongue swelling, bleeding gums, hoarseness, neck pain, dry mouth or other Cardio Chest Pain: No Palpitations: Yes (has atrial fib) feels like its: fast Edema: None Muscle aches with walking: None Resp Respiratory: Positive for SOB with activity (Has increased dyspnea on exertion lately); negative for SOB at rest, SOB orthopnea\SOB lying down, Cough, Coughing up blood/hemoptysis, chest congestion, pain on inspiration, snoring, stridor, wheezing, crackles, paroxysmal nocturnal dyspnea or other GI GI: Negative nausea, vomiting, heartburn, constipation, belching, bloating, cramping, vomiting blood/hematemesis, bright, red blood in stools, black,tarry stools, loose stools, Difficulty Swallowing or other : Negative for hematuria, frequent nighttime urination/ nocturia, erectile dysfunction or abnormal vaginal bleeding Musc Musc: Negative for muscle aches/ myalgia, muscle weakness, joint pain or balance problems Skin Skin: Negative redness, non-healing lesions, rash, unusual bruising, skin ulcer, wounds, jaundice or other Neuro Neuro: Negative for dizziness, lightheadedness, near syncope, syncope, orthostatic symptoms, frequent falls, headache(s), weakness, confusion, memory loss, restless legs, blurry vision, double vision, vertigo, seizures, lack of coordination or other Dwight Hematologic/Lymphatic: Negative for easy bleeding, easy bruising, enlarged lymph nodes or other Endo Endo: Positive for fatigue; negative for cold intolerance, heat intolerance, excessive sweating, flushing, increased thirst/drinking, increased hunger, hair loss, hair growth or other Psych Psych: Negative for anxiety, depression, thoughts of harming anyone, thoughts of harming yourself, visual hallucinations, panic attacks or audible hallucinations Allergy Allergy/Immunology: Negative for throat swelling, Negative for tongue swelling, Negative for hives, Negative for rash, Negative for lip swelling Cardiology Exam Const Appearance: cooperative, healthy appearing and no acute distress Nutritional Appearance: well nourished Orientation: alert, oriented x3 and oriented to person Head Head: normal to inspection, normocephalic and atraumatic Nose: external nose normal Face and Sinus: face symmetric Mouth: oral mucosae normal Eyes General: appearance normal, both eyes and all related structures Eyelids: eyelids normal Conjunctivae: conjunctivae normal Pupils: PERRL and normal by confrontation EOM: EOM intact bilaterally Neck Neck: normal visual inspection and full ROM Carotids: normal carotid upstroke Chest Chest inspection: normal inspection of the chest Auscultation: Bilateral: Clear to Auscultation Cardio Palpation: normal PMI Rate: regular rate Rhythm: irregular rhythm Heart sounds: S2 normal Murmur: Grade 2/6 and holosystolic GI GI: normal to inspection, no hepatosplenomegaly and bowel sounds present Neuro General: alert, awake, oriented x3, CN's II-XI intact bilaterally and moves all extremities Skin Skin: no rashes or lesions noted Extremities Pulses: Normal: Right Femoral Pulse, Left Femoral Pulse, Right Dorsalis Pedis Pulse, Left Dorsalis Pedis Pulse, Right Posterior Tibial Pulse, Left Posterior Tibial Pulse, Right Radial Pulse, Left Radial Pulse Lower Extremity Edema: None: Bilateral Psych Psychological: normal affect Assessment & Plan 1. Persistent atrial fibrillation I48.1 Plan 1. Atrial fibrillation: The patient appears to be in atrial fibrillation at this time and is evidence of secondary pulmonary hypertension, possibly a result of mitral regurgitation versus coronary occlusive disease. Patient is currently on Coumadin therapy and her heart rate and blood pressure much better controlled although she continues to have dyspnea on exertion. In order to determine whether the patient shortness of breath or dyspnea on exertion as a result of concomitant coronary occlusive disease, I recommend that she undergo a left and right heart catheterization to evaluate her coronary arteries and to determine exactly her pulmonary pressures. The risks/benefits of the procedure were thoroughly explained the patient including specific attention to lack of on-site surgical back-up, and informed consent was obtained. The patient will need to discontinue her Coumadin, continue her baby aspirin and start on Plavix 75 mg p.o. daily. If she is not current atrial fibrillation she will require subcu Lovenox as a bridge. Orders Orders: 12 Lead EKG performed by [facility] Today Partial Thromboplast Time Today Prothrombin Time w/INR Today Polysomnography Today 2. Secondary pulmonary arterial hypertension I27.21 Plan 2. Pulmonary hypertension: The patient is at least moderate pulmonary hy pertension as evidenced by echocardiogram. Recommend that she undergo a sleep study as well as a right heart catheterization concomitant with her left heart catheterization. Orders Orders: Left & Right Heart Cath Today Polysomnography Today 3. Hyperlipidemia E78.5 Plan 3. Hyperlipidemia: We are awaiting a repeat lipid profile. Continue Lipitor for now. Depending upon the outcome of her catheterization will determine how aggressive we need to be with her LDL. 4. Dyspnea on exertion R06.09 Plan 4. Dyspnea on exertion: Despite optimization of her blood pressure, heart rate, she continues to have dyspnea on exertion. This may be an anginal equivalent and I am concerned that given the poor performance of her stress test in August of 2017 that she may have concomitant coronary occlusive disease. Recommend left heart catheterization to rule this out. Orders Orders: Left & Right Heart Cath Today 12 Lead EKG performed by BMS Today Basic Metabolic Profile (BMP) Today Partial Thromboplast Time Today CBC-Complete Blood Cnt No Diff Today Chest PA and Lateral Today 5. Daytime somnolence R40.0 Plan 5. Daytime somnolence: The patient has struggled with daytime somnolence, and decreased energy level. She may have concomitant sleep apnea which may explain her pulmonary hypertension over and above her mitral regurgitation. Recommend obtaining a full sleep study to evaluate. 6. Return office in 6 months. This note was generated using a voice recognition system and there may be incorrect words, spelling or punctuation that were not noted when reviewing the office note prior to saving. Plan Detail Other Orders Orders: Left & Right Heart Cath Today I34.0, R53.83 Partial Thromboplast Time Today Z79.01 CBC-Complete Blood Cnt No Diff Today R53.83 Prothrombin Time w/INR Today Z79.01 Polysomnography Today G47.10, I10 Follow Up +6M (Julien) Coding Level of Care Code Off vis,est,level 3 Diagnoses Persistent atrial fibrillation I48.1 Secondary pulmonary arterial hypertension I27.21 Hyperlipidemia E78.5 Dyspnea on exertion R06.09 Daytime somnolence R40.0 Coding Level of Care Code Off vis,est,level 3 Diagnoses Persistent atrial fibrillation I48.1 Secondary pulmonary arterial hypertension I27.21 Hyperlipidemia E78.5 Dyspnea on exertion R06.09 Daytime somnolence R40.0 Supplemental Info Supplemental Information Labs LDL Cholesterol Cancelled 08/19/18 HDL Cholesterol Cancelled 08/19/18 Triglycerides Cancelled 08/19/18 VLDL Cholesterol Cancelled 08/19/18 10/20/18 1505 <Electronically signed by Eduardo Victoria MD> Date _ Eduardo Solorio Signature: Date (if applicable) CC: Celine Garcia MD ~ Interventional cardiology attending addendum: Patient seen and examined on the day of her catheterization. No interim changes noted. The risks/benefits of the procedure were thoroughly explained the patient including specific attention to lack of on-site surgical back-up, and the patient is agreed to proceed. Left and right heart catheterization to follow.
[2018-10-26 11:51] LABS: Blood Gas Specimen Type VEN; VBG BASE EXCESS 0 mmol/L (-1.0-3.5); VBG Bicarbonate 25 mmol/L (22-26); VBG Oxygen Content 26 mmol/L (23-33); VBG PO2 36 mmHg (25-40); VBG SO2 70 % (50-70); VBG pCO2 39.1 mmHg (41-51); VBG pH 7.41 (7.32-7.42)
[2018-10-26 11:51] LABS: Blood Gas Specimen Type VEN; VBG BASE EXCESS 0 mmol/L (-1.0-3.5); VBG Bicarbonate 25 mmol/L (22-26); VBG Oxygen Content 26 mmol/L (23-33); VBG PO2 37 mmHg (25-40); VBG SO2 71 % (50-70); VBG pCO2 39.5 mmHg (41-51); VBG pH 7.41 (7.32-7.42)
[2018-10-26 11:51] LABS: Base Excess -1 mmol/L (-2 to +2); Bicarbonate 23.6 mmol/L (22-26); Blood Gas Specimen Type ART; PO2 65 mmHG (75-100); SO2 93 % (95-99); Total Carbon Dioxide 25 mmol/L; pCO2 35.6 mmHg (35-45); pH 7.43 (7.35-7.45)
--- NOTE | 2018-11-03 09:58 | CL.D_ITS ---
Patient Name: RAMON ROSALES Study Date: 10/26/2018 Performing: Eduardo Victoria MD Ht: 66.14 inches 168 cm : 1940 Wt: 169.76 lbs 77 kg Age: 77 Gender: female BSA: 1.87 PROCEDURE(S) PERFORMED OI89-FME/LHC/COR/LV CLINICAL PROFILE AND INDICATIONS Indications: Suspected CAD, Valvular Disease, Cardiac Arrythmia Heart Failure: None Stress/Imaging Date: 08/25/2017Stress Echocardiogram: Indeterminant Angina Classification Anginal Classification w/in 2 Weeks: No symptoms CAD Presentations: No Sxs, no angina. Comorbidities/Risk Factors: Hypertension Dyslipidemia CONCLUSIONS Normal coronary arteries Non obstructive coronary arteries Normal LV size, wall motion,and systolic function The patient has pulmonary hypertension which is moderate. RECOMMENDATIONS Management as per referring Hr Advisor D/c plavix, DCCV in 4 weeks. If unsuccessful, will add flecainide and repeat DCCV. Manual sheath removal. DESCRIPTION OF PROCEDURE The patient arrived to the procedure lab. The risks and benefits of the procedure as well as a full d escription of our services here and current unavailability of surgical backup were fully explained to the patient and/or their significant other prior to the catheterization. The Timeout was completed, verifying the correct patient and procedure. The patient's procedural site was prepped and draped in the usual fashion. Local anesthetic was given subcutaneously to right groin region with Lidocaine 2%. Using a modified Seldinger technique, arterial access was obtained via the right femoral artery, a 4 Fr sheath was inserted Venous access was obtained via the right femoral vein, a 7Fr sheath was insert ed. A 7Fr thermal dilution catheter was inserted and right heart pressures were recorded, it was then advanced to PA position for cardiac outputs. Thermal dilution cardiac outputs were then recorded. O2 saturations were then obtained. Left Ventriculography was performed in BLACK projection using a 4 Fr. Pigtail catheter. Simultaneous pressures were then recorded. The Thermal dilution terrence ter was then removed. LV to AO pullback pressures were then recorded. Left Coronary Artery selective angiography was performed in multiple views using a 4 Fr. JL5 catheter. Right Coronary Artery selecti ve angiography was then performed in multiple views using a 4 Fr. 3DRC catheter.The arterial sheath w as pulled and manual compression applied until hemostasis is achieved. CORONARY ANGIOGRAPHY DOMINANCE: Co- Dominant LEFT HEART ASSESSMENT Left Ventricular Ejection Fraction: by LV Gram 75 % Normal LV wall motion Normal Left Ventricular systolic function RIGHT HEART ASSESSMENT Thermal CO: 4.68 Thermal CI: 2.5 Sammy CO: 6.12 Sammy CI: 3.27 PW: PA: 43/15 26 RV: 45/-1 6 RA: 6 PVR: 188 SVR: 1453 Right Heart pressures - elevated Pulmonary Hypertension Moderate LEFT MAIN: Angiographically normal LEFT ANTERIOR DESCENDING ARTERY: MID LAD: 30 % Stenosis CIRCUMFLEX ARTERY: Angiographically normal RIGHT CORONARY ARTERY: Angiographically normal COMPLICATIONS No Complications PROCEDURE MEDICATIONS SUMMARY OF HEMODYNAMIC DATA Time AIR REST ECG 08:04:51 RA (6) SV 11:18:46 RV 45/-1, 6 11:19:01 PW / (15) PV 11:19:44 PA 43/15 (26) PA 11:19:57 LV 136/-6, 8 11:25:18 LV 130/-6, 9 11:25:48 PW / (17) 11:25:48 LV 136/-6, 9 11:25:54 PW / (17) 11:25:54 LV 138/-4, 9 11:26:17 RV 41/0, 8 11:26:17 LV 136/-4, 8 11:26:25 RV 43/0, 7 11:26:25 LV 143/8, 11 11:27:30 LV 143/-7, 12 11:27:37 LVp 148/-8, 2 11:27:41 AOp 139/66 (96) 11:27:46 AO 117/72 (91) SA 11:29:23 Type SV CO (l/m) CI (l/m/ HR Time AIR REST Thermal 68.80 4.68 2.50 68 08:04:51 Sammy 90.00 6.12 3.27 68 08:04:51 Label % O2 Pres/Loc Time AIR REST AO 93 PV 11:33:30 PA 70 PA 11:33:35 Signed By Eduardo Victoria MD On 10/26/2018 11:43:16 Signed By Eduardo Victoria MD On 10/26/2018 11:42:09 Eduardo Victoria MD
== END 2018-10-26 15:51 | disposition home or self-care (01) ==
PROVIDERS: Family Provider Internal Medicine; PCP Internal Medicine; Referring Provider Internal Medicine Cardiovascular Disease; Visit Provider Internal Medicine Cardiovascular Disease
DX: I48.1 Persistent atrial fibrillation (principal); I27.21 Secondary pulmonary arterial hypertension; E78.5 Hyperlipidemia, unspecified; R06.09 Other forms of dyspnea; R40.0 Somnolence; R94.31 Abnormal electrocardiogram [ECG] [EKG]; I10 Essential (primary) hypertension; I34.0 Nonrheumatic mitral (valve) insufficiency; Z79.82 Long term (current) use of aspirin; Z79.01 Long term (current) use of anticoagulants; Z79.899 Other long term (current) drug therapy
CPT/HCPCS: 36415; 36416; 71046; 80048; 82803; 85027; 85610; 85730; 93460; J7040; Q9967; C1751; C1769; C1894

== ENCOUNTER 2018-11-02 10:42 | Outpatient (RCR) | payer MEDICARE, BC, SELFPAY ==
[2018-06-28 09:14] VITALS: BMI 27.6
[2018-10-20 14:28] VITALS: BMI 27.4
[2018-11-02 12:34] LABS: International Normalized Ratio 1.4; Prothrombin Time (Protime)PT. 17.2 SECONDS (11.7-14.9)
== END 2018-11-02 13:00 | disposition home or self-care (01) ==
LOC: LAB 10:42
PROVIDERS: Family Provider Internal Medicine; PCP Internal Medicine; Referring Provider Internal Medicine Cardiovascular Disease; Visit Provider Internal Medicine Cardiovascular Disease
DX: I48.1 Persistent atrial fibrillation (principal); Z79.01 Long term (current) use of anticoagulants
CPT/HCPCS: 36415; 85610

== ENCOUNTER 2018-11-28 11:50 | Outpatient (RCR) | payer MEDICARE, BC, SELFPAY ==
[2018-10-20 14:28] VITALS: BMI 27.4
[2018-11-09 14:37] LABS: International Normalized Ratio 2.5; Prothrombin Time (Protime)PT. 27.4 SECONDS (11.7-14.9)
[2018-11-17 11:24] LABS: Prothrombin Time (Protime)PT. 35.9 SECONDS (11.7-14.9)
[2018-11-17 11:26] LABS: International Normalized Ratio 3.6
[2018-11-24 15:41] LABS: Prothrombin Time (Protime)PT. 43.1 SECONDS (11.7-14.9)
[2018-11-24 15:57] LABS: International Normalized Ratio 4.5
[2018-11-28 14:18] LABS: Prothrombin Time (Protime)PT. 22.5 SECONDS (11.7-14.9)
== END 2018-11-28 18:00 | disposition home or self-care (01) ==
LOC: MTLAB 11:50
PROVIDERS: Family Provider Internal Medicine; PCP Internal Medicine; Referring Provider Internal Medicine Cardiovascular Disease; Visit Provider Internal Medicine Cardiovascular Disease
DX: I48.19 Other persistent atrial fibrillation (principal); Z79.01 Long term (current) use of anticoagulants
CPT/HCPCS: 36415; 85610

== ENCOUNTER 2019-01-03 10:13 | Outpatient (RCR) | payer MEDICARE, BC, SELFPAY ==
[2018-10-20 14:28] VITALS: BMI 27.4
[2018-12-12 12:30] LABS: International Normalized Ratio 2.8; Prothrombin Time (Protime)PT. 29.4 SECONDS (11.7-14.9)
[2018-12-19 12:45] LABS: Prothrombin Time (Protime)PT. 31.5 SECONDS (11.7-14.9)
[2018-12-19 16:36] LABS: Anion Gap 4 (5-15); BUN 28 mg/dL (7-18); BUN/Creat Ratio 30.7 RATIO (10-20); Calcium,Total 9.5 mg/dL (8.5-10.1); Chloride 106 mmol/L (98-107); Creatinine, Serum 0.91 mg/dL (0.55-1.02); EST Glomerular Filtration Rate 64 mL/min (>60); Est Glom Filt Rate - Afr Amer 77 mL/min (>60); Glucose 89 mg/dL (74-106); Potassium 3.7 mmol/L (3.5-5.1); Sodium Level 140 mmol/L (136-145)
[2018-12-26 09:52] LABS: International Normalized Ratio 2.8; Prothrombin Time (Protime)PT. 29.7 SECONDS (11.7-14.9)
[2019-01-03 11:05] LABS: International Normalized Ratio 2.4; Prothrombin Time (Protime)PT. 26.1 SECONDS (11.7-14.9)
== END 2019-01-03 18:00 | disposition home or self-care (01) ==
LOC: LAB 10:13
PROVIDERS: Family Provider Internal Medicine; PCP Internal Medicine; Referring Provider Internal Medicine Cardiovascular Disease; Visit Provider Internal Medicine Cardiovascular Disease
DX: I48.11 Longstanding persistent atrial fibrillation (principal); Z79.01 Long term (current) use of anticoagulants
CPT/HCPCS: 36415; 80048; 85610

== ENCOUNTER 2019-01-11 10:41 | Day surgery (SDC) | payer MEDICARE, BC, SELFPAY ==
[2018-10-20 14:28] VITALS: BMI 27.4
[2018-12-30 11:13] VITALS: BMI 28.2
--- NOTE | 2018-12-30 11:36 | HP_ITS ---
HPI HPI History of Present Illness Surgical H&P: Yes Details: Details: RAMON ROSALES, is a 78 F who presents to the office today for evaluation of newly discovered atrial fibrillation. The patient is a nondiabetic, with a history of hypertension, hypercholesterolemia, no previous coronary disease, lifelong non- smoker, nondrinker, no previous TIA or CVA. Patient went in for a routine physical in her PCPs office and it was discovered she had an irregular heart rhythm. EKG confirmed atrial fibrillation with rapid ventricular response. Patient was placed on Coumadin and Lopressor therapy. She underwent an echocardiogram on 07/30/17 which showed moderate mitral regurgitation, LVEF of 55%, mild left atrial enlargement, and RVSP of 48 mmHg consistent with at least moderate pulmonary hypertension. Patient is unaware of her atrial fibrillation but does note decreased exercise and energy level starting about 12 months ago. She also has a history of lobular breast cancer status post lumpectomy in February 2015 and status post hysterectomy in 2004. Patient underwent a treadmill echocardiogram on 08/25/17 and when she went 3 minutes 43 seconds, had no wall motion changes, and stopped due to dyspnea on exertion. She had a hypertensive blood pressure response to exercise, but apparently had never had a heart catheterization. To better evaluate her symptoms and poor exercise capacity she underwent a left and right heart catheterization on 11/03/2018 with the following results: Normal coronary arteries Non obstructive coronary arteries Normal LV size, wall motion,and systolic function The patient has pulmonary hypertension which is moderate. Since her last visit, the patient states that her shortness of breath and dyspnea on exertion are about the same perhaps a little worse. She states that she can walk on flat surface without too much difficulty but any kind of incline causes her to be dyspneic. Her blood pressure is much better controlled and yet she still continues to have dyspnea on exertion and shortness of breath. She denies any chest pain, angina but does complain of worsening shortness of breath and dyspnea on exertion. Her Lipitor has corrected her LDL elevation. She continues on diltiazem, Hyzaar, and Lopressor. She is also on warfarin for her paroxysmal atrial fibrillation. Further history, the patient denies ever having a sleep study although she does complain of significant daytime somnolence, and does not wake up well rested. She is uncertain whether she snores or not. She is compliant with her medications. She has never had a cardioversion. Patient is now here for an updated H&P for upcoming DC cardioversion on 01/11/2019. She declines a sleep study at this time despite being told she has moderate pulmonary hypertension by right heart catheterization. She wishes to proceed with cardioversion first and then entertain the sleep study. In our office today her blood pressure is 110/60, and her heart rate is 64 and are irregular. Her physical exam is as below. Her lipids dated 01/08/17 show an HDL of 54 and an LDL of 153 while on red yeast rice. Repeat lipids on 03/05/18 show an LDL of 83 and an HDL of 40 while on Lipitor. EKG dated 12/30/2018 shows atrial fibrillation with controlled ventricular response, incomplete right bundle branch block. Intake Vital Signs 12/30/18 Height 5 ft 6 in 12/30/18 Weight: 175 lb 12/30/18 Body Mass Index (BMI) 28.2 12/30/18 Blood Pressure 110/60 12/30/18 Blood Pressure Location Rt brachial 12/30/18 Blood Pressure Position Sitting 12/30/18 Respiratory Rate 20 H 12/30/18 Pulse Rate 64 12/30/18 Pulse Source Auscultation Intake Visit Reasons: UPDATE H&P FOR DCCV Accounts Administrator Required: No Is patient in pain?: No Allergies No Known Allergies Allergy (Verified 12/28/18 13:54) Medications Acetaminophen [Pain Relief] 500 mg PO QHS 02/28/15 [History Confirmed 12/30/18] Aspirin [Adult Low Dose Aspirin EC] 81 mg PO DAILY 02/28/15 [History Confirmed 12/30/18] Calcium Carbonate/Vitamin D3 [Calcium 600-Vit D3 800 Tablet] 1 ea PO BID 02/28/15 [History Confirmed 12/30/18] DiphenhydrAMINE [Benadryl] 25 mg PO QHS PRN PRN 02/28/15 [History Confirmed 12/30/18] Multivitamins,Therapeutic [Multivitamin] 1 tab PO DAILY 02/28/15 [History Confirmed 12/30/18] Anastrozole 1 mg PO DAILY 05/13/16 [History Confirmed 12/30/18] atorvastatin 20 mg tablet 20 mg PO QDAY #90 tab 03/14/18 [Rx Confirmed 12/30/18] diltiazem ER 120 mg tablet,extended release 24 hr 120 mg PO DAILY #30 tab 03/14/18 [Rx Confirmed 12/30/18] losartan 100 mg-hydrochlorothiazide 25 mg tablet 1 tab PO DAILY #90 tab 03/14/18 [Rx Confirmed 12/30/18] metoprolol tartrate 50 mg tablet 50 mg PO BID #180 tab 03/14/18 [Rx Confirmed 12/30/18] warfarin 2 mg tablet 4 mg PO QDAY #180 tab 03/14/18 [Rx Confirmed 12/30/18] PFSH Medical History Abnormal EKG (Chronic) Hyperlipidemia (Chronic) Secondary pulmonary arterial hypertension (Chronic) Non-rheumatic mitral regurgitation (Chronic) Persistent atrial fibrillation (Chronic) Hypertension (Chronic) Breast cancer (Chronic) Hemorrhoids (Chronic) Cellulitis (Resolved) Breast cancer of upper-outer quadrant of left female breast (Inactive) Surgical History History of right and left heart catheterization (Chronic 10/26/18) History of colonoscopy (Acute ~03/2017) History of left breast biopsy (Acute ~07/06/18) History of hysterectomy (Chronic) History of lumpectomy of left breast (Chronic) Family History Mother Heart disease chf Father Hypertension Social History (Updated 12/30/18 @ 11:36 by Eduardo Victoria MD) Smoking Status: Never smoker ROS Const Const: Positive for other (Feels well, is here for updated H&P for DCCV); negative for fatigue, weakness, body ache, fever(s), headache(s), chills, frequent falls, night sweats, daytime sleepiness, difficulty sleeping, excessive sweating, weight gain, weight loss, increased appetite, poor appetite or anorexia Eyes Eyes: Negative for blind spots, loss of peripheral vision, transient loss of vision, blurry vision, change in vision, double vision, floaters, tunnel vision or other ENT ENT: Negative for headache(s), dizziness, hearing loss, tinnitus, Nosebleed/epistaxis, balance problems, post nasal drip, lip swelling, tongue swelling, bleeding gums, hoarseness, neck pain, dry mouth or other Cardio Chest Pain: No Palpitations: Yes Edema: None Muscle aches with walking: None Resp Respiratory: Negative for SOB with activity, SOB at rest, SOB orthopnea\SOB lying down, Cough, Coughing up blood/hemoptysis, chest congestion, pain on inspiration, snoring, stridor, wheezing, crackles, paroxysmal nocturnal dyspnea or other GI GI: Negative nausea, vomiting, heartburn, constipation, belching, bloating, cramping, vomiting blood/hematemesis, bright, red blood in stools, black,tarry stools, loose stools, Difficulty Swallowing or other : Negative for hematuria, frequent nighttime urination/ nocturia, erectile dysfunction or abnormal vaginal bleeding Musc Musc: Negative for muscle aches/ myalgia, muscle weakness, joint pain or balance problems Skin Skin: Negative redness, non-healing lesions, rash, unusual bruising, skin ulcer, wounds, jaundice or other Neuro Neuro: Negative for dizziness, lightheadedness, near syncope, syncope, orthostatic symptoms, frequent falls, headache(s), weakness, confusion, memory loss, restless legs, blurry vision, double vision, vertigo, seizures, lack of coordination or other Dwight Hematologic/Lymphatic: Negative for easy bleeding, easy bruising, enlarged lymph nodes or other Endo Endo: Negative for fatigue, cold intolerance, heat intolerance, excessive sweating, flushing, increased thirst/drinking, increased hunger, hair loss, hair growth or other Psych Psych: Negative for anxiety, depression, thoughts of harming anyone, thoughts of harming yourself, visual hallucinations, panic attacks or audible hallucinations Allergy Allergy/Immunology: Negative for throat swelling, Negative for tongue swelling, Negative for hives, Negative for rash, Negative for lip swelling Cardiology Exam Const Appearance: cooperative, healthy appearing and no acute distress Nutritional Appearance: well nourished Orientation: alert, oriented x3 and oriented to person Head Head: normal to inspection, normocephalic and atraumatic Nose: external nose normal Face and Sinus: face symmetric Mouth: oral mucosae normal Eyes General: appearance normal, both eyes and all related structures Eyelids: eyelids normal Conjunctivae: conjunctivae normal Pupils: PERRL and normal by confrontation EOM: EOM intact bilaterally Neck Neck: normal visual inspection and full ROM Carotids: normal carotid upstroke Chest Chest inspection: normal inspection of the chest Auscultation: Bilateral: Clear to Auscultation Cardio Palpation: normal PMI Rate: regular rate Rhythm: irregular rhythm Heart sounds: S1 normal and S2 normal GI GI: normal to inspection, no hepatosplenomegaly and bowel sounds present Neuro General: alert, awake, oriented x3, CN's II-XI intact bilaterally and moves all extremities Skin Skin: no rashes or lesions noted Extremities Pulses: Normal: Right Femoral Pulse, Left Femoral Pulse, Right Dorsalis Pedis Pulse, Left Dorsalis Pedis Pulse, Right Posterior Tibial Pulse, Left Posterior Tibial Pulse, Right Radial Pulse, Left Radial Pulse Lower Extremity Edema: None: Bilateral Psych Psychological: normal affect Assessment & Plan 1. Persistent atrial fibrillation I48.19 Plan 1. Persistent atrial fibrillation: Patient has been on Coumadin therapy, beta- jakub therapy, calcium channel jakub therapy, and baby aspirin, and is awaiting elective DC cardioversion. Should this be successful, I would continue her anticoagulation therapy as she is unaware when she is in and out of atrial fibrillation. If that is unsuccessful, I have a low threshold for adding flecainide followed by additional DC cardioversion. I believe the patient would benefit from normalization of her rhythm in order to assist with her pulmonary hypertension. 2. Secondary pulmonary arterial hypertension I27.21 Plan 2. Pulmonary hypertension: The patient is on calcium channel jakub therapy. Her PA pressures were in the mid 40s. I have explained to the patient the relationship between obstructive sleep apnea and pulmonary hypertension, but she again declines sleep study at this time. She wishes to wait until after her cardioversion to see if that is successful. 3. Hyperlipidemia E78.5 Plan 3. Hyperlipidemia: We are awaiting a repeat lipid profile. Continue Lipitor. 4. Return office in 6 months. This note was generated using a voice recognition system and there may be incorrect words, spelling or punctuation that were not noted when reviewing the office note prior to saving. Plan Detail Other Orders Orders: 12 Lead EKG performed by [facility] Today I48.1, Z79.01 Follow Up +6M (Victoria) Coding Level of Care Code Off vis,est,level 3 Diagnoses Persistent atrial fibrillation I48.19 Secondary pulmonary arterial hypertension I27.21 Hyperlipidemia E78.5 Coding Level of Care Code Off vis,est,level 3 Diagnoses Persistent atrial fibrillation I48.19 Secondary pulmonary arterial hypertension I27.21 Hyperlipidemia E78.5 Supplemental Info Supplemental Information Labs LDL Cholesterol Cancelled 08/19/18 HDL Cholesterol Cancelled 08/19/18 Triglycerides Cancelled 08/19/18 VLDL Cholesterol Cancelled 08/19/18 Diagnostics Electrocardiogram 10/20/18 Cardiac Catheterization 11/03/18 Chest X-Ray 10/21/18 12/30/18 1136 <Electronically signed by Eduardo Victoria MD> Date _ Eduardo Victoria MD
[2019-01-10 08:38] VITALS: BMI 28.2
--- NOTE | 2019-01-11 14:27 | CARDIOVERS_ITS ---
Cardioversion Cardioversion: DC cardioversion procedure: Patient was brought to the cardiology catheterization holding area in the fasting state. The risks/benefits of the procedure were thoroughly explained the patient and informed consent was obtained. The defibrillator pads were placed in the AP position, and with the assistance of Dr. Reece Ortiz the patient received 40 mg of IV propofol. Once adequate sedation was obtained the patient received a 200 J synchronized biphasic shock which converted from atrial fibrillation with controlled ventricular response to normal sinus rhythm. This rhythm remained durable, this patient spontaneously awoke, move all 4 extremities, and tolerated procedure well. Conclusions: Successful beta-jakub and Coumadin assisted DC cardioversion with a single biphasic synchronized 200 J shock which converted him from atrial fibrillation to normal sinus rhythm. Patient will continue her antihypertensive medications as well as her Coumadin therapy going forward. Would recommend Coumadin therapy at least for 6 months time as she appears to be unaware of her atrial fibrillation. Should the patient deteriorate back in atrial fibrillation I have a low threshold for adding flecainide therapy to assist with future DC cardioversions. Patient tolerated procedure well, no complications. Many mary nks Dr. Reece Ortiz for his assistance with sedation.
--- NOTE | 2019-01-11 14:28 | PCM.OP.PRO ---
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 Status: Acute (2) History of right and left heart catheterization Status: Chronic Comment: Normal coronaries, Normal LV function per LHC done 10/26/18 by JOSUE @ [facility] (3) Hyperlipidemia Status: Chronic (4) Hypertension Status: Chronic (5) Non-rheumatic mitral regurgitation Status: Chronic (6) Persistent atrial fibrillation Status: Chronic (7) Secondary pulmonary arterial hypertension Status: Chronic Procedure Report Date of Procedure: 01/11/19 - Conscious sedation CONSCIOUS SEDATION REPORT BRIEF HISTORY OF PRESENT ILLNESS: The patient is a 78-year-old female who presented to [facility] for an elective outpatient cardioversion due to underlying atrial fibrillation. The patient reports no PO intake since midnight. The patient does not have a history of obstructive sleep apnea. The patient reports no history of smoking and COPD. The patient denies any recent constitutional symptoms such as fevers, chills, nausea or vomiting. The patient denies previous anesthetic complications. Patient's last known ejection fraction is 60%. Patient was anticoagulated and INR on the day of testing was 3.1 PHYSICAL EXAMINATION: VITAL SIGNS: Reviewed and were acceptable. GENERAL: The patient is a female, in no apparent distress, speaking in full sentences. HEENT: Normocephalic, atraumatic. Mucous membranes are moist and pink. Good mouth opening noted. Trachea is midline. Good neck mobility. MP III CHEST: S1, S2 irregularly irregular. No murmurs, rubs or gallops were noted. LUNGS: Clear to auscultation bilaterally without appreciable wheezes, rales or rhonchi. ABDOMEN: Soft, nontender, nondistended. Positive bowel sounds. EXTREMITIES: There is no clubbing, cyanosis or edema. ASA Class: II DESCRIPTION OF PROCEDURE: After confirmation of informed consent, the patient's anesthesia plan was reviewed in detail. Propofol was chosen. Risks and benefits were reviewed and the patient agreed to proceed. At 1:17 PM, the patient was given 40 mg of propofol. The patient required a total of 60 mg of propofol throughout the procedure to achieve appropriate sedation. The patient achieved an appropriate level of sedation and received 1 attempt synchronized cardioversion, at [address] Victoria at the bedside. This was successful in achieving normal sinus rhythm. The patient was monitored until 1:24 PM, at which time the patient reached their baseline mental status and function. The patient tolerated the procedure well. COMPLICATIONS: None ESTIMATED BLOOD LOSS: None RECOMMENDATIONS: Okay to recover in usual fashion. Code Visit 9xxxx: Other Procedure See Report - 33979 -7 minutes conscious sedation
[2019-01-11 16:05] LABS: Prothrombin Time Fingerstick 34.9 SEC (11.9-14.4)
== END 2019-01-11 14:31 | disposition home or self-care (01) ==
LOC: CLSP 10:43
PROVIDERS: Family Provider Internal Medicine; PCP Internal Medicine; Referring Provider Internal Medicine Cardiovascular Disease; Visit Provider Internal Medicine Cardiovascular Disease
DX: I48.19 Other persistent atrial fibrillation (principal); I27.21 Secondary pulmonary arterial hypertension; E78.5 Hyperlipidemia, unspecified; I34.0 Nonrheumatic mitral (valve) insufficiency; I10 Essential (primary) hypertension; Z79.01 Long term (current) use of anticoagulants; Z79.899 Other long term (current) drug therapy
CPT/HCPCS: 36416; 85610; 92960; 93005; J7040

== ENCOUNTER 2019-01-18 15:06 | Outpatient (RCR) | payer MEDICARE, BC, SELFPAY ==
[2018-12-30 11:13] VITALS: BMI 28.2
[2019-01-18 14:15] VITALS: BMI 28.2
[2019-01-18 16:37] LABS: International Normalized Ratio 2.9; Prothrombin Time (Protime)PT. 30.5 SECONDS (11.7-14.9)
== END 2019-01-18 18:00 | disposition home or self-care (01) ==
LOC: LAB 15:06
PROVIDERS: Family Provider Internal Medicine; PCP Internal Medicine; Referring Provider Internal Medicine Cardiovascular Disease; Visit Provider Internal Medicine Cardiovascular Disease
DX: I48.11 Longstanding persistent atrial fibrillation (principal); Z79.01 Long term (current) use of anticoagulants
CPT/HCPCS: 36415; 85610

== ENCOUNTER → 2019-02-14 10:09 | Outpatient (CLI) | payer MEDICARE, BC, SELFPAY ==
[2019-01-18 14:15] VITALS: BMI 28.2
--- NOTE | 2019-02-14 10:17 | BI_ITS ---
MAMMOGRAPHY - BILATERAL SCREENING REASON FOR EXAM: Female, 78 years old. Routine annual screening examination. PERTINENT HISTORY: Personal history of breast cancer. Prior left lumpectomy and radiation treatment. Daughter with breast cancer. TECHNIQUE: Digital bilateral breast nnamdi (3D mammographic acquisition) in the CC and MLO projections. 2-D mediolateral oblique (MLO) and craniocaudad (CC) views of both breasts were obtained. CAD: Full Field Digital Mammography with Computer Added Detection was performed. COMPARISON: Comparison is made with prior study dated June 23, 2018 and February 03, 2018. FINDINGS: Breast Composition: There are scattered areas of fibroglandular density. Since prior study, the patient underwent ultrasound-guided left breast biopsies. Residual postoperative scarring and architectural distortion in the deep upper lateral portion of the left breast. A tissue marker is seen within the. Since prior study, a focus of microcalcifications is seen at the biopsy site. These are amorphous. A biopsy recommended. No other significant abnormalities are identified. BI/SCREEN MAMM (CAD) W/NNAMDI BILAT IMPRESSION: Status post lumpectomy in the deep upper lateral aspect of the left breast with the recent ultrasound-guided biopsy. New cluster of amorphous calcifications at the surgical site. A biopsy is recommended. ASSESSMENT CATEGORY: BIRADS Category 4: Suspicious - Biopsy Should Be Considered. A letter regarding these results will be sent to the patient by the facility within 30 days. Approximately 10% of breast cancers are not detected by mammography. A normal mammogram should not delay biopsy of a clinically suspicious abnormality. [id number] Electronically Signed: Brian Whiting, at 13:08 EST , Service support ,
== END ==
PROVIDERS: Family Provider Internal Medicine; PCP Internal Medicine; Referring Provider Nurse Practitioner; Visit Provider Nurse Practitioner
DX: Z12.31 Encounter for screening mammogram for malignant neoplasm of breast (principal); C50.912 Malignant neoplasm of unspecified site of left female breast
CPT/HCPCS: 77063; 77067

== ENCOUNTER → 2019-02-28 12:14 | Outpatient (CLI) | payer MEDICARE, BC, SELFPAY ==
[2019-02-20 14:07] VITALS: BMI 28.2
--- NOTE | 2019-02-28 13:15 | BRBX_PTH ---
PATIENT: RAMON ROSALES LOC: [facility] U#:[id number] AGE/SX: 84/F ROOM: RE02/28/[address]: Dr. Bradley Feliciano MD : 1940 BED: DIS: SPEC #: [id number] RECD: 02/28/19 14:03 STATUS: TEREZA RERekha #: [id number] CATINA: 02/28/19 13:[address]: Bradley Feliciano DEPT: SURGICAL PATHOLOGY RECD BY: Cecilio Bates ENTERED: 02/28/19 14:11 SP TYPE: BREAST BX OTHR DR: Dr. Celine Garcia MD Tissues: Left breast, NOS Procedures: Surgery Specimen Level IV HEADER OPERATION: Left breast stereotactic biopsy PRE-OP DIAGNOSIS: Left breast deep upper lateral amorphous calcifications TISSUE SUBMITTED: Left breast ISCHEMIC TIME: 1 minute FIXATION TIME: 6.5 hours MICROSCOPIC DIAGNOSIS Left breast, deep upper lateral amorphous calcification, stereotactic core biopsy: Fat necrosis, chronic inflammation and dystrophic calcification. Negative for malignancy. See comment. CRISTINA:james 03/01/19 COMMENT The specimen predominantly consists of fibroadipose tissue with minimal amount of breast tissue. Please make reference to previous specimens ([id number]) left breast, lumpectomy with diagnosis of invasive lobular carcinoma and ([id number]) left breast, upper outer quadrant calcification 2 o'clock, core biopsy with diagnosis of densely collagenized tissue with rare macrophages and no evidence of malignancy and left breast, upper outer quadrant at 12 o'clock, needle core biopsy with diagnosis of fat necrosis of fibrosis, collagenized tissue and calcifications of vessel wall, no evidence of malignancy. Correlation with clinical, radiologic findings and appropriate follow up are necessary. MICROSCOPIC DESCRIPTION Slides are reviewed. GROSS DESCRIPTION Received is one container labeled with the patient's name and not further designated. The specimen consists of multiple elongated fragments of martin-yellow fibroadipose tissue mixed with blood clot that in aggregate measure 2 x 2 x 0.3 cm. The entire specimen is submitted in one cassette. / CRISTINA:james 02/28/19 TC:5 CPT: 56244
--- NOTE | 2019-02-28 13:46 | PCM.OPRPT ---
Problem List (1) Calcification of left breast Status: Acute Report of Operation Date of Procedure: 02/28/19 Pre-Operative Diagnosis: Calcifications of the left breast Post-Operative Diagnosis: Same Surgery/Procedure Performed:: Stereotactic guided needle core biopsy of the left breast Specimen's removed: Left breast biopsy Description of Procedure: The patient was positioned in the stereotactic table and the left breast was compressed. Mammogram views were obtained until the calcifications in question were centered. Stereotactic views were then obtained. The microcalcifications were targeted using the computer and then the skin was prepped and draped in usual sterile fashion. A small area of the skin was anesthetized and a small incision was made in the skin. Next the needle was placed into the left breast and deployed. Stereotactic views were then once again obtained. Biopsies of the 3:00 through 9 o'clock position were obtained. The specimens were placed in x-ray and it appeared that the calcifications were obtained. Next the marking clip was placed into the breast and deployed. The needle was then removed and images reveal that the clip was in good position. The patient was taken off of the table and pressure was held in the breast. The Steri-Strip and bandage were then applied. The patient was then sent for mammogram. Patient tolerated the procedure well. She was instructed to resume Coumadin tomorrow.
== END ==
PROVIDERS: Family Provider Internal Medicine; PCP Internal Medicine; Referring Provider Surgery; Visit Provider Surgery
DX: R92.8 Other abnormal and inconclusive findings on diagnostic imaging of breast (principal)
CPT/HCPCS: 19081; 88305; J7050; A4648

== ENCOUNTER 2019-03-08 11:09 | Outpatient (RCR) | payer MEDICARE, BC, SELFPAY ==
[2019-02-16 09:45] LABS: AST(SGOT) 27 U/L (15-37); Alanine Aminotransfer ALT/SGPT 35 U/L (13-56); Albumin, Serum 3.9 g/dL (3.2-5.0); Alkaline Phosphatase 99 U/L (45-117); Bilirubin, Direct 0.11 mg/dL (0.00-0.30); Cholesterol 200 mg/dL (200); High Density Lipoprotein 64 mg/dL; Protein, Total 7.9 g/dL (6.4-8.2); Triglycerides 208 mg/dL; Very Low Density Lipoprotein 42 mg/dL (5-40)
[2019-02-16 10:02] LABS: International Normalized Ratio 2.4; Prothrombin Time (Protime)PT. 26.1 SECONDS (11.7-14.9)
[2019-02-27 17:13] LABS: International Normalized Ratio 1.3; Prothrombin Time (Protime)PT. 16.3 SECONDS (11.7-14.9)
[2019-03-08 12:26] LABS: International Normalized Ratio 1.4; Prothrombin Time (Protime)PT. 16.6 SECONDS (11.7-14.9)
== END 2019-03-08 18:00 | disposition home or self-care (01) ==
LOC: LAB 11:09
PROVIDERS: Nurse Practitioner Family; Family Provider Internal Medicine; PCP Internal Medicine; Referring Provider Internal Medicine Cardiovascular Disease; Visit Provider Internal Medicine Cardiovascular Disease
DX: I48.11 Longstanding persistent atrial fibrillation (principal); E78.5 Hyperlipidemia, unspecified; Z79.01 Long term (current) use of anticoagulants
CPT/HCPCS: 36415; 80061; 80076; 85610

== ENCOUNTER 2019-03-22 09:59 | Outpatient (RCR) | payer MEDICARE, BC, SELFPAY ==
[2019-02-20 14:07] VITALS: BMI 28.2
[2019-03-18 12:27] LABS: AST(SGOT) 24 U/L (15-37); Alanine Aminotransfer ALT/SGPT 27 U/L (13-56); Albumin, Serum 3.9 g/dL (3.2-5.0); Alkaline Phosphatase 98 U/L (45-117); Bilirubin, Direct 0.05 mg/dL (0.00-0.30); Cholesterol 197 mg/dL (200); Globulin 3.9 g/dL (2.2-4.2); High Density Lipoprotein 57 mg/dL; Protein, Total 7.8 g/dL (6.4-8.2); Triglycerides 277 mg/dL; Very Low Density Lipoprotein 55 mg/dL (5-40)
[2019-03-22 11:10] LABS: International Normalized Ratio 1.9; Prothrombin Time (Protime)PT. 22.1 SECONDS (11.7-14.9)
== END 2019-03-22 18:00 | disposition home or self-care (01) ==
LOC: LAB 09:59
PROVIDERS: Nurse Practitioner Family; Family Provider Internal Medicine; PCP Internal Medicine; Referring Provider Internal Medicine Cardiovascular Disease; Visit Provider Internal Medicine Cardiovascular Disease
DX: I48.19 Other persistent atrial fibrillation (principal); Z79.01 Long term (current) use of anticoagulants
CPT/HCPCS: 36415; 80061; 80076; 85610

== ENCOUNTER 2019-05-08 10:36 | Outpatient (RCR) | payer MEDICARE, BC, SELFPAY ==
[2019-02-20 14:07] VITALS: BMI 28.2
[2019-04-15 10:52] LABS: International Normalized Ratio 2.5; Prothrombin Time (Protime)PT. 26.9 SECONDS (11.7-14.9)
[2019-05-08 12:10] LABS: International Normalized Ratio 2.8; Prothrombin Time (Protime)PT. 29.2 SECONDS (11.7-14.9)
== END 2019-05-08 18:00 | disposition home or self-care (01) ==
LOC: LAB 10:36
PROVIDERS: Family Provider Internal Medicine; PCP Internal Medicine; Referring Provider Internal Medicine Cardiovascular Disease; Visit Provider Internal Medicine Cardiovascular Disease
DX: I48.11 Longstanding persistent atrial fibrillation (principal); Z79.01 Long term (current) use of anticoagulants
CPT/HCPCS: 36415; 85610

== ENCOUNTER 2019-06-08 10:07 | Outpatient (RCR) | payer MEDICARE, BC, SELFPAY ==
[2019-02-20 14:07] VITALS: BMI 28.2
[2019-06-08 11:32] LABS: International Normalized Ratio 2.6; Prothrombin Time (Protime)PT. 27.7 SECONDS (11.7-14.9)
== END 2019-06-08 18:00 | disposition home or self-care (01) ==
LOC: LAB 10:07
PROVIDERS: Family Provider Internal Medicine; PCP Internal Medicine; Referring Provider Internal Medicine Cardiovascular Disease; Visit Provider Internal Medicine Cardiovascular Disease
DX: I48.11 Longstanding persistent atrial fibrillation (principal); Z79.01 Long term (current) use of anticoagulants
CPT/HCPCS: 36415; 85610

== ENCOUNTER 2019-07-08 10:14 | Outpatient (RCR) | payer MEDICARE, BC, SELFPAY ==
[2019-02-20 14:07] VITALS: BMI 28.2
[2019-06-09 14:16] VITALS: BMI 28.2
== END 2019-07-08 18:00 | disposition home or self-care (01) ==
LOC: LAB 10:14
PROVIDERS: Family Provider Internal Medicine; PCP Internal Medicine; Referring Provider Internal Medicine Cardiovascular Disease; Visit Provider Internal Medicine Cardiovascular Disease
DX: I48.19 Other persistent atrial fibrillation (principal); Z79.01 Long term (current) use of anticoagulants
CPT/HCPCS: 36415; 85610

== ENCOUNTER → 2019-07-19 13:53 | Outpatient (CLI) | payer MEDICARE, BC, SELFPAY ==
[2019-06-09 14:16] VITALS: BMI 28.2
--- NOTE | 2019-07-19 13:54 | ECHOCS_ITS ---
Reason For Study: PHTN Procedure This was a 2D Doppler, Color Flow transthoracic echocardiogram. Myocardial strain analysis was performed in this exam to aid in the assessment of cardiac function. The study was technically difficult. Exam performed in department. Left Ventricle Normal size and thickness. The estimated ejection fraction is 65 %. Stage 2 diastolic dysfunction. The global longitudinal strain = -22.5 % (normal). No regional wall motion abnormalities noted. Right Ventricle Normal size and thickness. Normal systolic function. Atria The left atrium is severely enlarged. Normal right atrium. Normal atrial septum. Mitral Valve Mild diffuse mitral valve thickening. Mild (1+) mitral valve insufficiency. Tricuspid Valve Normal tricuspid valve. Trivial tricuspid valve insufficiency. Right ventricular systolic pressure estimated to be 43 mmHg. Mild pulmonary hypertension. Aortic Valve Trisinus/trileaflet aortic valve. Mild diffuse aortic valve thickening. Pulmonic Valve Normal pulmonic valve. Trivial pulmonic valve insufficiency. Great Vessels Normal aortic root. Normal arch. Normal inferior vena cava. Pericardium/Pleural No pericardial effusion. Medication 22 gauge I.V. with prn adaptor inserted into right arm. Diluted definity 2ml given slow IV push to enhance endocardial definition. MMode/2D Measurements & Calculations LVIDd: 4.2 cm IVSd: 1.0 cm LA dimension: 4.0 cm LVIDs: 2.4 cm LVPWd: 0.73 cm RVDd: 3.5 cm FS: 44.0 % LAV(MOD-bp): 73.3 ml LA A4 area: 25.5 cm2 RA A4 area: 13.1 cm2 LAV(MOD-bp) Indexed: 39.1 ml/m2 LAV(MOD-sp2): 66.5 ml LAV(MOD-sp4): 85.7 ml Time Measurements MV dec time: 0.22 sec Doppler Measurements & Calculations MV E max braulio: 83.6 cm/sec Lat Peak E' Braulio: 10.3 cm/sec Med Peak E' Braulio: 6.6 cm/sec MV A max braulio: 40.4 cm/sec E/E' lat: 8.1 E/E' med: 12.6 MV E/A: 2.1 MV V2 max: 110.2 cm/sec MV P1/2t max braulio: 110.2 cm/sec Ao V2 max: 210.7 cm/sec MV max P.9 mmHg MV P1/2t: 63.1 msec Ao max P.8 mmHg MV V2 mean: 49.8 cm/sec MV dec slope: 512.0 cm/sec2 Ao V2 mean: 135.1 cm/sec MV mean P.2 mmHg Ao mean P.5 mmHg MV V2 VTI: 28.7 cm MVA(P1/2t): 3.5 cm2 Ao V2 VTI: 44.1 cm LV V1 max: 113.4 cm/sec MR max braulio: 482.3 cm/sec PA V2 max: 76.0 cm/sec LV V1 max P.1 mmHg MR max P.0 mmHg LV V1 mean P.7 mmHg MR mean braulio: 419.9 cm/sec LV V1 mean: 75.6 cm/sec MR mean P.3 mmHg LV V1 VTI: 25.2 cm MR VTI: 161.9 cm TR max braulio: 301.9 cm/sec TR max P.5 mmHg Interpretation Summary The estimated ejection fraction is 65 %. Stage 2 diastolic dysfunction. The left atrium is severely enlarged. Mild (1+) mitral valve insufficiency. Trivial tricuspid valve insufficiency. Right ventricular systolic pressure estimated to be 43 mmHg. Mild pulmonary hypertension. The global longitudinal strain = -22.5 % (normal). The study was technically difficult. Contrast injection was performed. There is no comparison study available. Ordering Physician: Eduardo Victoria Referring Physician: Celine Garcia M.D. Performed By: Trae Kang RCS
== END ==
PROVIDERS: PCP Internal Medicine; Referring Provider Internal Medicine Cardiovascular Disease; Visit Provider Internal Medicine Cardiovascular Disease
DX: I27.20 Pulmonary hypertension, unspecified (principal); Z98.890 Other specified postprocedural states
CPT/HCPCS: 93306; Q9957; A4216; C8929

== ENCOUNTER 2019-08-07 11:33 | Outpatient (RCR) | payer MEDICARE, BC, SELFPAY ==
[2019-06-09 14:16] VITALS: BMI 28.2
[2019-08-07 12:43] LABS: International Normalized Ratio 2.7; Prothrombin Time (Protime)PT. 28.6 SECONDS (11.7-14.9)
== END 2019-08-07 18:00 | disposition home or self-care (01) ==
LOC: LAB 11:33
PROVIDERS: Family Provider Internal Medicine; PCP Internal Medicine; Referring Provider Internal Medicine Cardiovascular Disease; Visit Provider Internal Medicine Cardiovascular Disease
DX: I48.19 Other persistent atrial fibrillation (principal); Z79.01 Long term (current) use of anticoagulants
CPT/HCPCS: 36415; 85610

== ENCOUNTER 2019-09-19 08:26 | Outpatient (RCR) | payer MEDICARE, BC, SELFPAY ==
[2019-06-09 14:16] VITALS: BMI 28.2
[2019-09-13 11:16] LABS: International Normalized Ratio 2.3
[2019-09-19 10:07] LABS: AST(SGOT) 21 U/L (15-37); Alanine Aminotransfer ALT/SGPT 23 U/L (13-56); Albumin, Serum 3.7 g/dL (3.2-5.0); Alkaline Phosphatase 88 U/L (45-117); Cholesterol 178 mg/dL (200); Globulin 3.8 g/dL (2.2-4.2); High Density Lipoprotein 53 mg/dL; Protein, Total 7.5 g/dL (6.4-8.2); Triglycerides 212 mg/dL; Very Low Density Lipoprotein 42 mg/dL (5-40)
== END 2019-10-09 18:00 | disposition home or self-care (01) ==
LOC: LAB 08:26
PROVIDERS: Family Provider Internal Medicine; PCP Internal Medicine; Referring Provider Internal Medicine Cardiovascular Disease; Visit Provider Internal Medicine Cardiovascular Disease
DX: I48.11 Longstanding persistent atrial fibrillation (principal); Z79.01 Long term (current) use of anticoagulants; E78.00 Pure hypercholesterolemia, unspecified
CPT/HCPCS: 36415; 80061; 80076; 85610

== ENCOUNTER → 2019-09-22 12:59 | Outpatient (CLI) | payer MEDICARE, BC, SELFPAY ==
[2019-06-09 14:16] VITALS: BMI 28.2
--- NOTE | 2019-09-22 13:07 | BI_ITS ---
MAMMOGRAPHY - UNILATERAL DIAGNOSTIC: LEFT BREAST REASON FOR EXAM: Female, 78 years old. 6 month follow-up examination following stereotactic breast biopsy for calcification of the left breast. PERTINENT HISTORY: Personal history of breast cancer. Prior left lumpectomy with radiation therapy. History of daughter with breast cancer. TECHNIQUE: Digital unilateral breast irasema (3D mammographic acquisition) in the CC and MLO projections. 2-D mediolateral oblique (MLO) and craniocaudad (CC) views of both breasts were obtained. CAD: Full Field Digital Mammography with Computer Added Detection was performed. COMPARISON: Comparison is made with prior study dated 02/14/2019. FINDINGS: Breast Composition: There are scattered areas of fibroglandular density. Since prior study, the patient underwent a stereotactic biopsy of the calcifications in the upper lateral aspect of the left breast. A tissue marker is seen at this site. Since prior examination, there has been a progression of macrocalcifications at the operative site. No other significant abnormalities are identified. BI/DIAG MAMM W/CAD, UNILAT IMPRESSION: Status post stereotactic biopsy of the dystrophic calcifications at the operative site in the upper lateral portion of the left breast. A tissue clip marker is seen. Since prior study, there has been a progression of macrocalcifications. ASSESSMENT CATEGORY: BIRADS Category 2: Benign. A letter regarding these results will be sent to the patient by the facility within 30 days. Approximately 10% of breast cancers are not detected by mammography. A normal mammogram should not delay biopsy of a clinically suspicious abnormality. Electronically Signed: Brian Whiting, at 14:13 EDT , Service support ,
== END ==
PROVIDERS: PCP Internal Medicine; Referring Provider Surgery; Visit Provider Surgery
DX: R92.8 Other abnormal and inconclusive findings on diagnostic imaging of breast (principal)
CPT/HCPCS: 77061; 77065; G0279

== ENCOUNTER → 2019-09-29 09:14 | Outpatient (CLI) | payer MEDICARE, BC, SELFPAY ==
[2019-09-28 14:15] VITALS: BMI 28.2
--- NOTE | 2019-09-29 09:15 | US_ITS ---
STUDY: ULTRASOUND BREAST - LEFT REASON FOR EXAM: Female, 78 years old. f/u prev left breast us s/p t breast bx x 3 areas s/p lumpectomy - prior to most recent bxs TECHNIQUE: Axial and longitudinal images of the LEFT breast were performed with a high resolution ultrasound transducer. # OF IMAGES: 61 COMPARISON: None. FINDINGS: LEFT Breast: There is a lesion #1 in the upper outer quadrant. The lesion measures 8 x 9 x 7 mm in size. Clock notation: 3 o''clock position. Distance from nipple: 6 cm. Posterior Enhancement: No. Posterior Shadowing: Strong. Margins: Indistinct and jagged. Echogenicity: Hypoechoic. Compression effect on Shape: No change. There is a lesion # 2 in the upper outer quadrant. The lesion measures 17 x 14 x 11 mm in size. Clock notation: 3 o''clock position. Distance from nipple: 6 cm. Posterior Enhancement: No. Posterior Shadowing: Strong. Margins: Indistinct and jagged. Echogenicity: Hypoechoic. Compression effect on Shape: No change. There is a lesion # 3 in the upper outer quadrant. The lesion measures 9 x 12 x 15 mm in size. Clock notation: 3 o''clock position. Distance from nipple: 6 cm. Posterior Enhancement: No. Posterior Shadowing: Strong. Margins: Indistinct and jagged. Echogenicity: Hypoechoic. Compression effect on Shape: No change. US/Breast Limited Unilateral IMPRESSION: Probably benign lesions in the left breast due to scarring. Follow-up ultrasound and mammogram in 6 months is recommended. ASSESSMENT CATEGORY: BIRADS Category 3: Probably Benign - Short-Interval Follow-up Suggested. A letter regarding these results will be sent to the patient by the facility within 30 days. Electronically Signed: Tanna Patterson, at 5:16 EDT Tel , Service support ,
== END ==
PROVIDERS: PCP Internal Medicine; Referring Provider Surgery; Visit Provider Surgery
DX: R92.8 Other abnormal and inconclusive findings on diagnostic imaging of breast (principal); Z98.890 Other specified postprocedural states
CPT/HCPCS: 76642

== ENCOUNTER → 2019-10-06 15:54 | Outpatient (CLI) | payer MEDICARE, BC, SELFPAY ==
--- NOTE | 2019-10-06 | IMM_PTH ---
PATIENT: RAMON ROSALES LOC: [facility] U#:[id number] AGE/SX: 84/F ROOM: RE10/06/[address]: Dr. Bradley Feliciano MD : 1940 BED: DIS: SPEC #: [id number] RECD: 10/10/19 14:12 STATUS: TEREZA REQ #: [id number] CATINA: 10/06/19 00:[address]: Bradley Feliciano DEPT: IMMUNOHISTOCHEMISTRY RECD BY: Carlita Cisneros ENTERED: 10/10/19 14:14 SP TYPE: IMMUNO OTHR DR: Dr. Celine Garcia MD Tissues: Left breast, NOS Procedures: CK8 (initial) SMA (add) CALPONIN-1 (add) MACRO (add) P40 (add) PHYSICIAN & INSTITUTION [place] [address] SPECIMEN INFORMATION: Tissue Source: Left breast tissue Clinical Info: Abnormal left breast ultrasound Specimen Number: [id number] CPT code: 64348, 74721 x4 METHODOLOGY: Deparaffinized sections of prefer/formalin-fixed tissue or PAP/DQ stained slides are incubated with monoclonal/polyclonal antibodies/oligonucleotide probes. Localization is made via biotin free immunoperoxidase method. Appropriate controls are performed and reacted as expected. Results on target cell population are indicated in the following table: RESULTS: ANTIBODY / CLONE RESULT CK8 ([id number]) negative Calponin-1 (KY391C) positive Macro (HAM-56) positive Actin (1A4) positive P40 (BC28) positive These tests were developed and their performance characteristics determined by [facility]. They may not have been cleared or approved by the U.S. Food and Drug Administration. The FDA has determined that such clearance or approval is not necessary. The above immunohistochemical/dualISH markers are ordered and reviewed by the Pathologist. INTERPRETATION: Left breast tissue, ultrasound-guided needle core biopsy: No evidence of malignancy. AM:james 10/11/19 Case has been reviewed in consultation with Dr. Schuster who concurs with the above diagnosis. IDC:CRISTINA
[2019-10-06 13:48] VITALS: BMI 28.2
--- NOTE | 2019-10-06 14:00 | BRBX_PTH ---
PATIENT: RAMON ROSALES LOC: [facility] U#:[id number] AGE/SX: 84/F ROOM: RE10/06/[address]: Dr. Bradley Feliciano MD : 1940 BED: DIS: SPEC #: [id number] RECD: 10/06/19 15:17 STATUS: TEREZA RERekha #: [id number] CATINA: 10/06/19 14:[address]: Bradley Feliciano DEPT: SURGICAL PATHOLOGY RECD BY: Cecilio Bates ENTERED: 10/09/19 09:07 SP TYPE: BREAST BX OTHR DR: Dr. Celine Garcia MD Tissues: Left breast, NOS Procedures: Surgery Specimen Level IV HEADER OPERATION: Ultrasound-guided left breast needle core biopsy PRE-OP DIAGNOSIS: Abnormal left breast ultrasound TISSUE SUBMITTED: Left breast tissue ISCHEMIC TIME: <1 minute FIXATION TIME: 77.5 hours MICROSCOPIC DIAGNOSIS Left breast mass, ultrasound-guided needle core biopsy: Fat necrosis with associated fibrosis, inflammation, hyalinization and focal dystrophic microcalcifications. See comment. AM:james 10/10/19 COMMENT Immunohistochemistry ([id number]) supports the above diagnosis. Case has been reviewed in consultation with Dr. Schuster who concurs with the above diagnosis. IDC:CRISTINA MICROSCOPIC DESCRIPTION Slides are reviewed. GROSS DESCRIPTION Received in fixative is one container labeled with the patient name and designated left breast biopsy. The specimen consists of multiple elongated fragments of martin-yellow fibroadipose tissue that in aggregate measure 2 x 0.6 x 0.1 cm. The entire specimen is submitted in one cassette. / CRISTINA:jamse 10/09/19 TC:5 CPT: 05471
== END ==
PROVIDERS: PCP Internal Medicine; Referring Provider Surgery; Visit Provider Surgery
DX: R92.8 Other abnormal and inconclusive findings on diagnostic imaging of breast (principal)
CPT/HCPCS: 88305; 88341; 88342

== ENCOUNTER 2019-10-19 10:21 | Outpatient (RCR) | payer MEDICARE, BC, SELFPAY ==
[2019-10-06 13:48] VITALS: BMI 28.2
[2019-10-19 11:32] LABS: Hematocrit 34.4 % (37-47); Hemoglobin 11.4 g/dL (12.0-15.0); Mean Corp Hgb Conc 33.1 g/dL (32-36); Mean Corpuscular Volume 99.7 fL (81-99); Mean Platelet Vol. 10.1 fl (6.2-12.0); Platelet Count 281 K/mm3 (150-450); RBC Distribution Width CV 12.5 % (11.6-14.6); Red Blood Count 3.45 M/mm3 (4.2-5.4); White Blood Count 9.1 K/mm3 (4.4-11.0)
[2019-10-19 11:34] LABS: International Normalized Ratio 2.3; Prothrombin Time (Protime)PT. 24.5 SECONDS (11.7-14.9)
[2019-10-19 11:59] LABS: Anion Gap 4 (5-15); BUN 34 mg/dL (7-18); BUN/Creat Ratio 32.1 RATIO (10-20); Calcium,Total 8.8 mg/dL (8.5-10.1); Chloride 106 mmol/L (98-107); Creatinine, Serum 1.06 mg/dL (0.55-1.02); EST Glomerular Filtration Rate 54 mL/min (>60); Est Glom Filt Rate - Afr Amer 65 mL/min (>60); Glucose 120 mg/dL (74-106); Potassium 3.9 mmol/L (3.5-5.1); Sodium Level 140 mmol/L (136-145)
[2019-10-19 12:04] LABS: Vitamin D,25 Hydroxy 39.9 ng/mL
== END 2019-10-19 18:00 | disposition home or self-care (01) ==
LOC: LAB 10:21
PROVIDERS: Internal Medicine Cardiovascular Disease; Family Provider Internal Medicine; PCP Internal Medicine; Referring Provider Internal Medicine Cardiovascular Disease; Visit Provider Internal Medicine Cardiovascular Disease
DX: I48.19 Other persistent atrial fibrillation (principal); E55.9 Vitamin D deficiency, unspecified; Z79.01 Long term (current) use of anticoagulants; Z79.899 Other long term (current) drug therapy
CPT/HCPCS: 36415; 80048; 82306; 85027; 85610

== ENCOUNTER 2019-12-26 10:45 | Outpatient (RCR) | payer MEDICARE, BC, SELFPAY ==
[2019-10-06 13:48] VITALS: BMI 28.2
[2019-12-26 11:28] LABS: International Normalized Ratio 2.4; Prothrombin Time (Protime)PT. 25.3 SECONDS (11.7-14.9)
== END 2019-12-26 18:00 | disposition home or self-care (01) ==
LOC: LAB 10:45
PROVIDERS: Family Provider Internal Medicine; PCP Internal Medicine; Referring Provider Internal Medicine Cardiovascular Disease; Visit Provider Internal Medicine Cardiovascular Disease
DX: I48.19 Other persistent atrial fibrillation (principal); Z79.01 Long term (current) use of anticoagulants
CPT/HCPCS: 36415; 85610

== ENCOUNTER → 2020-01-09 10:47 | Outpatient (CLI) | payer MEDICARE, BC, SELFPAY ==
[2019-12-29 13:05] VITALS: BMI 28.2
--- NOTE | 2020-01-09 10:49 | US_ITS ---
STUDY: ULTRASOUND BREAST - LEFT REASON FOR EXAM: Female, 79 years old. Abnormal screening mammogram. TECHNIQUE: Axial and longitudinal images of the LEFT breast were performed with a high resolution ultrasound transducer. # OF IMAGES: 16 COMPARISON: Comparison is made with prior ultrasound dated 09/29/2019 and prior mammogram dated 09/22/2019. FINDINGS: LEFT Breast: There is a 6 mm x 5 mm x 11 mm hypoechoic solid nodule with minimal posterior shadowing at the 12 o''clock position breast at 2 sinus with nipple. There is a 1 cm x 1.7 cm x 1.7 cm hypoechoic irregular nodule at the 1 o''clock position of the breast at 2 cm from nipple. There is posterior acoustical shadowing. There is also evidence of a 1.1 cm x 1.2 cm x 1.4 cm hypoechoic irregular nodule with posterior acoustical shadowing at the 2 o''clock position breast at 3 cm from the nipple. Biopsy of these lesions is recommended. US/Breast Limited Unilateral IMPRESSION: There are 3 adjacent hypoechoic irregular solid nodules as described. Tissue diagnosis is recommended. ASSESSMENT CATEGORY: BIRADS Category 4: Suspicious - Biopsy Should Be Considered. A letter regarding these results will be sent to the patient by the facility within 30 days. Electronically Signed: Brian Whiting, at 12:22 EST , Service support ,
== END ==
PROVIDERS: PCP Internal Medicine; Referring Provider Surgery; Visit Provider Surgery
DX: R92.8 Other abnormal and inconclusive findings on diagnostic imaging of breast (principal)
CPT/HCPCS: 76642

== ENCOUNTER 2020-01-27 10:14 | Outpatient (RCR) | payer MEDICARE, BC, SELFPAY ==
[2019-12-29 13:05] VITALS: BMI 28.2
[2020-01-27 11:32] LABS: International Normalized Ratio 3.2; Prothrombin Time (Protime)PT. 32.4 SECONDS (11.7-14.9)
== END 2020-01-27 18:00 | disposition home or self-care (01) ==
LOC: LAB 10:14
PROVIDERS: Family Provider Internal Medicine; PCP Internal Medicine; Referring Provider Internal Medicine Cardiovascular Disease; Visit Provider Internal Medicine Cardiovascular Disease
DX: I48.19 Other persistent atrial fibrillation (principal); Z79.01 Long term (current) use of anticoagulants
CPT/HCPCS: 36415; 85610

== ENCOUNTER → 2020-02-14 12:14 | Outpatient (CLI) | payer MEDICARE, BC, SELFPAY ==
[2019-12-29 13:05] VITALS: BMI 28.2
--- NOTE | 2020-02-14 12:16 | US_ITS ---
STUDY: ULTRASOUND BREAST - LEFT REASON FOR EXAM: Female, 79 years old. Breast Biopsy following lumpectomy. TECHNIQUE: Axial and longitudinal images of the LEFT breast were performed with a high resolution ultrasound transducer. # OF IMAGES: 10 COMPARISON: Comparison is made with prior study dated 01/09/2020. FINDINGS: LEFT Breast: Imaging of the area of concern was performed. The abnormality seen on prior examination lies directly deep to the surgical scar. This most likely represents postoperative scarring rather than a true mass. The biopsy was not performed. US/Breast Limited Unilateral IMPRESSION: Findings suggestive of post lumpectomy scarring. No definite mass lesion is seen. ASSESSMENT CATEGORY: BIRADS Category 2: Benign. A letter regarding these results will be sent to the patient by the facility within 30 days. Electronically Signed: Brian Whiting, at 14:14 EST , Service support ,
== END ==
PROVIDERS: PCP Internal Medicine; Visit Provider Surgery
DX: R92.8 Other abnormal and inconclusive findings on diagnostic imaging of breast (principal)
CPT/HCPCS: 76642

== ENCOUNTER 2020-03-01 10:02 | Outpatient (RCR) | payer MEDICARE, BC, SELFPAY ==
[2019-12-29 13:05] VITALS: BMI 28.2
[2020-02-23 11:34] LABS: International Normalized Ratio 1.6; Prothrombin Time (Protime)PT. 18.4 SECONDS (11.7-14.9)
[2020-03-01 11:48] LABS: International Normalized Ratio 2.2; Prothrombin Time (Protime)PT. 24.2 SECONDS (11.7-14.9)
== END 2020-03-01 18:00 | disposition home or self-care (01) ==
LOC: LAB 10:02
PROVIDERS: Family Provider Internal Medicine; PCP Internal Medicine; Referring Provider Internal Medicine Cardiovascular Disease; Visit Provider Internal Medicine Cardiovascular Disease
DX: I48.19 Other persistent atrial fibrillation (principal); Z79.01 Long term (current) use of anticoagulants
CPT/HCPCS: 36415; 85610

== ENCOUNTER 2020-03-16 10:04 | Outpatient (RCR) | payer MEDICARE, BC, SELFPAY ==
[2020-03-16 11:02] LABS: International Normalized Ratio 2.8; Prothrombin Time (Protime)PT. 29.2 SECONDS (11.7-14.9)
== END 2020-03-16 18:00 | disposition home or self-care (01) ==
LOC: LAB 10:04
PROVIDERS: Family Provider Internal Medicine; PCP Internal Medicine; Referring Provider Internal Medicine Cardiovascular Disease; Visit Provider Internal Medicine Cardiovascular Disease
DX: I48.19 Other persistent atrial fibrillation (principal); Z79.01 Long term (current) use of anticoagulants
CPT/HCPCS: 36415; 85610

== ENCOUNTER 2020-04-17 12:10 | Outpatient (RCR) | payer MEDICARE, BC, SELFPAY ==
[2019-12-29 13:05] VITALS: BMI 28.2
[2020-04-17 14:41] LABS: International Normalized Ratio 2.9; Prothrombin Time (Protime)PT. 30.2 SECONDS (11.7-14.9)
== END 2020-04-17 18:00 | disposition home or self-care (01) ==
LOC: LAB 12:10
PROVIDERS: Family Provider Internal Medicine; PCP Internal Medicine; Referring Provider Internal Medicine Cardiovascular Disease; Visit Provider Internal Medicine Cardiovascular Disease
DX: Z79.01 Long term (current) use of anticoagulants (principal); I48.19 Other persistent atrial fibrillation
CPT/HCPCS: 36415; 85610

== ENCOUNTER → 2020-06-26 11:20 | Outpatient (CLI) | payer MEDICARE, BC, SELFPAY ==
[2020-06-26 10:54] VITALS: BMI 28.2
[2020-06-26 12:17] LABS: Absolute Lymphocyte Count 1.86 X10^3/uL (0.83-4.51); Absolute Neutrophil Count 4.8 X10^3/uL (2.0-7.7); Basophil# 0.05 X10^3/uL; Basophil% 0.7 % (0-1); Eosinophil# 0.35 X10^3/uL; Eosinophils% 4.6 % (0-5); Hematocrit 35.9 % (37-47); Hemoglobin 11.8 g/dL (12.0-15.0); Lymphocyte # 1.86 X10^3/ul (0.83-4.51); Lymphocyte % 24.2 % (19-41); Mean Corp Hgb Conc 32.9 g/dL (32-36); Mean Corpuscular Hgb 32.4 pg (27.0-32.0); Mean Corpuscular Volume 98.6 fL (81-99); Monocyte# 0.62 X10^3/uL; Monocyte% 8.1 % (0-10); NRBC Flagged by Analyzer 0 % (0-5); Neutrophil # 4.79 X10^3/uL (2.7-7.7); Neutrophil % 62.1 % (47-70); Platelet Count 296 K/mm3 (150-450); RBC Distribution Width CV 12.8 % (11.6-14.6); RBC Distribution Width SD 46.4 fl (35.1-43.9); Red Blood Count 3.64 M/mm3 (4.2-5.4); White Blood Count 7.7 K/mm3 (4.4-11.0)
[2020-06-26 12:26] LABS: International Normalized Ratio 2.8
[2020-06-26 13:13] LABS: ALB/GLOB Ratio 1.1 RATIO (0.9-2.4); AST(SGOT) 23 U/L (15-37); Alanine Aminotransfer ALT/SGPT 22 U/L (13-56); Albumin, Serum 3.9 g/dL (3.2-5.0); Alkaline Phosphatase 85 U/L (45-117); Anion Gap 5 (5-15); BUN 32 mg/dL (7-18); BUN/Creat Ratio 31.1 RATIO (10-20); Calcium,Total 9.7 mg/dL (8.5-10.1); Chloride 104 mmol/L (98-107); Cholesterol 184 mg/dL (200); Creatinine, Serum 1.03 mg/dL (0.55-1.02); EST Glomerular Filtration Rate 55 mL/min (>60); Est Glom Filt Rate - Afr Amer 67 mL/min (>60); Globulin 3.7 g/dL (2.2-4.2); Glucose 87 mg/dL (74-106); High Density Lipoprotein 54 mg/dL; Potassium 3.8 mmol/L (3.5-5.1); Protein, Total 7.6 g/dL (6.4-8.2); Sodium Level 140 mmol/L (136-145); Triglycerides 210 mg/dL; Very Low Density Lipoprotein 42 mg/dL (5-40)
== END ==
PROVIDERS: PCP Internal Medicine; Referring Provider Internal Medicine; Visit Provider Internal Medicine
DX: I48.11 Longstanding persistent atrial fibrillation (principal); C50.919 Malignant neoplasm of unspecified site of unspecified female breast; I10 Essential (primary) hypertension; E78.5 Hyperlipidemia, unspecified; Z79.01 Long term (current) use of anticoagulants
CPT/HCPCS: 36415; 80053; 80061; 85025; 85610

== ENCOUNTER → 2020-07-10 09:49 | Outpatient (CLI) | payer MEDICARE, BC, SELFPAY ==
[2020-06-26 10:54] VITALS: BMI 28.2
[2020-06-28 10:23] VITALS: BMI 26.6
--- NOTE | 2020-07-10 09:58 | BD_ITS ---
STUDY: DUAL ENERGY X-RAY ABSORPTIOMETRY / DXA REASON FOR EXAM: Female, 79 years old. Post menopausal. Hx of Osteoporosis TECHNIQUE: Bone Mineral Density (BMD) measurements of lumbar spine and bilateral hips were obtained. COMPARISON: Comparison is made with prior examination dated 02/15/2018. FINDINGS: Lumbar Spine (L1-L4): g/cm2 (0.907) / T-score (-2.1) / Z-score (-0.4) Findings are suggestive of osteopenia with a high fracture risk. Left Femur Total: g/cm2 (0.831) / T-score (-1.4) / Z-score (0.5) Left Femoral Neck: g/cm2 (0.755) / T-score (-2.0) / Z-score (0.0) Right Femur Total: g/cm2 (0.841) / T-score (-1.3) / Z-score (0.5) Right Femoral Neck: g/cm2 (0.850) / T-score (-1.4) / Z-score (0.7) The T-Scores on the most recent prior examination were: Lumbar Spine (L1-L4): There has been worsening of bone density since the previous examination. Left Femur Total: which represents a worsening of 1.2%. Right Femur Total: which represents a worsening of 0.1%. BD/Dexa Bone Density Study IMPRESSION: The patient is considered osteopenic as outlined below according to World Jes[employer]s Organization (WHO) criteria with a high fracture risk. There has been worsening of bone density since the previous examination. Reference Information: The T-score is the number of standard deviations above or below the standard which is normal for young adults at their peak bone mineral density. The World Health Organization (WHO) interprets the T-scores as follows: Above -1 Normal bone density Between -1 and -2.5 Osteopenia Equal to / or below -2.5 Osteoporosis As a practical clinical guideline, osteopenia may be graded as follows: Mild -1 through -1.5 Moderate -1.6 through -2.0 Severe -2.1 through -2.4 The Z-score is the number of standard deviations above or below age-matched controls. A Z-score of less than -1.5 would be considered abnormal. References: 1. NIH Osteoporosis and Related Bone Diseases www osteo.org 2. International Society for Clinical Densitometry www iscd.org 3. National Osteoporosis Foundation www nof.org Electronically Signed: Brian Whiting MD at 14:33 EDT , Service support ,
== END ==
PROVIDERS: PCP Internal Medicine; Referring Provider Internal Medicine; Visit Provider Internal Medicine
DX: M81.0 Age-related osteoporosis without current pathological fracture (principal)
CPT/HCPCS: 77080

== ENCOUNTER 2020-07-30 14:36 | Outpatient (RCR) | payer MEDICARE, BC, SELFPAY ==
[2020-06-28 10:23] VITALS: BMI 26.6
[2020-07-30 17:50] LABS: International Normalized Ratio 2.6; Prothrombin Time (Protime)PT. 26.9 SECONDS (11.7-14.9)
== END 2020-07-30 18:00 | disposition home or self-care (01) ==
LOC: MTLAB 14:36
PROVIDERS: Family Provider Internal Medicine; PCP Internal Medicine; Referring Provider Internal Medicine Cardiovascular Disease; Visit Provider Internal Medicine Cardiovascular Disease
DX: I48.19 Other persistent atrial fibrillation (principal); Z79.01 Long term (current) use of anticoagulants
CPT/HCPCS: 36415; 85610

== ENCOUNTER → 2020-08-26 09:49 | Outpatient (CLI) | payer MEDICARE, BC, SELFPAY ==
[2020-06-28 10:23] VITALS: BMI 26.6
--- NOTE | 2020-08-26 09:49 | MRI_ITS ---
STUDY: BILATERAL BREAST MR WITHOUT AND WITH CONTRAST REASON FOR EXAM: Female, 79 years old. Questionable imaging on mammogram and left breast ultrasound. Confirmation of findings. TECHNIQUE: Multi-sequence multi-echo imaging of both breasts was performed with a dedicated breast coil. T1-weighted and T2-weighted images were performed before the administration of contrast. T1-weighted images were also performed after the administration of IV 15ml Dotarem without complications. COMPARISON: Prior mammograms dated 02/14/2019 and breast ultrasound dated 01/09/2020 and 02/14/2020. FINDINGS: RIGHT BREAST: The breast tissue is fatty with no background enhancement. There are no abnormal enhancing masses or areas of non-mass enhancement in the right breast. LEFT BREAST: The breast tissue is fatty with no background enhancement. Deformity of the left breast with decreased volume from the patient''s lumpectomy and treatment. Minimal enhancement in the area of the scar in the upper outer quadrant with metallic artifact. Skin thickening. There are no abnormal enhancing masses or areas of non-mass enhancement in the left breast. There are no enlarged or abnormal lymph nodes. There is no abnormality in the visualized regions of the chest or liver. MRI/Breast Bilateral W/O and W IMPRESSION: Changes compatible with lumpectomy in the left breast. No areas of abnormal enhancement. Yearly follow-up mammogram recommended. CATEGORY: BIRADS Category 2: Benign. A letter regarding these results will be sent to the patient by the facility within 30 days. Electronically Signed: Alexandr Alaniz MD at 11:44 EDT , Service support ,
[2020-08-26 10:25] LABS: CREATININE FINGERSTICK 0.7 mg/dL (0.55-1.02); EGFR FINGERSTICK > 60.0000 mL/min (>60)
== END ==
PROVIDERS: PCP Internal Medicine; Referring Provider Surgery; Visit Provider Surgery
DX: R92.8 Other abnormal and inconclusive findings on diagnostic imaging of breast (principal); Z85.3 Personal history of malignant neoplasm of breast
CPT/HCPCS: 77049; A9575; A4216; C8908

== ENCOUNTER 2020-08-31 09:39 | Outpatient (RCR) | payer MEDICARE, BC, SELFPAY ==
[2020-06-28 10:23] VITALS: BMI 26.6
[2020-08-31 10:37] LABS: International Normalized Ratio 2.6
== END 2020-08-31 18:00 | disposition home or self-care (01) ==
LOC: LAB 09:39
PROVIDERS: Family Provider Internal Medicine; PCP Internal Medicine; Referring Provider Internal Medicine Cardiovascular Disease; Visit Provider Internal Medicine Cardiovascular Disease
DX: I48.19 Other persistent atrial fibrillation (principal); Z79.01 Long term (current) use of anticoagulants
CPT/HCPCS: 36415; 85610

== ENCOUNTER 2020-10-03 15:50 | Outpatient (RCR) | payer MEDICARE, BC, SELFPAY ==
[2020-06-28 10:23] VITALS: BMI 26.6
[2020-09-18 15:36] LABS: Hematocrit 31.4 % (37-47); Hemoglobin 10.3 g/dL (12.0-15.0); Mean Corp Hgb Conc 32.8 g/dL (32-36); Mean Corpuscular Hgb 32.7 pg (27.0-32.0); Mean Corpuscular Volume 99.7 fL (81-99); Mean Platelet Vol. 9.7 fl (6.2-12.0); Platelet Count 256 K/mm3 (150-450); RBC Distribution Width CV 13.2 % (11.6-14.6); RBC Distribution Width SD 47.8 fl (35.1-43.9); Red Blood Count 3.15 M/mm3 (4.2-5.4)
[2020-09-18 15:46] LABS: International Normalized Ratio 1.9; Prothrombin Time (Protime)PT. 20.8 SECONDS (11.7-14.9)
[2020-10-03 17:21] LABS: International Normalized Ratio 2.6; Prothrombin Time (Protime)PT. 27.2 SECONDS (11.7-14.9)
== END 2020-10-08 23:59 ==
LOC: BIMLAB 15:50
PROVIDERS: Physician Assistant Medical; Family Provider Internal Medicine; PCP Internal Medicine; Referring Provider Internal Medicine Cardiovascular Disease; Visit Provider Internal Medicine Cardiovascular Disease
DX: I48.19 Other persistent atrial fibrillation (principal); Z79.01 Long term (current) use of anticoagulants; K64.9 Unspecified hemorrhoids; I27.21 Secondary pulmonary arterial hypertension
CPT/HCPCS: 36415; 85027; 85610

== ENCOUNTER → 2020-10-21 16:40 | Outpatient (CLI) | payer MEDICARE, BC, SELFPAY ==
[2020-10-21 17:13] LABS: Hematocrit 35.3 % (37-47); Hemoglobin 11.5 g/dL (12.0-15.0)
== END ==
PROVIDERS: PCP Internal Medicine; Visit Provider Physician Assistant Medical
DX: K64.9 Unspecified hemorrhoids (principal)
CPT/HCPCS: 36415; 85014; 85018

== ENCOUNTER 2020-11-07 10:49 | Outpatient (RCR) | payer MEDICARE, BC, SELFPAY ==
[2020-10-09 00:18] VITALS: BMI 26.6
[2020-11-07 12:39] LABS: International Normalized Ratio 2.4; Prothrombin Time (Protime)PT. 25.4 SECONDS (11.7-14.9)
== END 2020-11-07 23:59 ==
LOC: BIMLAB 10:49
PROVIDERS: Family Provider Internal Medicine; PCP Internal Medicine; Referring Provider Internal Medicine Cardiovascular Disease; Visit Provider Internal Medicine Cardiovascular Disease
DX: I48.0 Paroxysmal atrial fibrillation (principal); Z79.01 Long term (current) use of anticoagulants
CPT/HCPCS: 36415; 85610

== ENCOUNTER 2020-12-07 10:07 | Outpatient (RCR) | payer MEDICARE, BC, SELFPAY ==
[2020-11-08 00:13] VITALS: BMI 26.6
[2020-12-07 10:52] LABS: International Normalized Ratio 2.3; Prothrombin Time (Protime)PT. 24.7 SECONDS (11.7-14.9)
== END 2020-12-08 19:45 | disposition home or self-care (01) ==
LOC: LAB 10:07
PROVIDERS: Family Provider Internal Medicine; PCP Internal Medicine; Referring Provider Internal Medicine Cardiovascular Disease; Visit Provider Internal Medicine Cardiovascular Disease
DX: I48.19 Other persistent atrial fibrillation (principal); Z79.01 Long term (current) use of anticoagulants
CPT/HCPCS: 36415; 85610

== ENCOUNTER 2021-01-06 13:58 | Outpatient (RCR) | payer MEDICARE, BC, SELFPAY ==
[2020-12-08 19:45] VITALS: BMI 26.6
[2021-01-06 15:27] LABS: International Normalized Ratio 2.6; Prothrombin Time (Protime)PT. 27.1 SECONDS (11.7-14.9)
== END 2021-01-07 18:00 | disposition home or self-care (01) ==
LOC: LAB 13:58
PROVIDERS: Family Provider Internal Medicine; PCP Internal Medicine; Referring Provider Internal Medicine Cardiovascular Disease; Visit Provider Internal Medicine Cardiovascular Disease
DX: I48.0 Paroxysmal atrial fibrillation (principal); Z79.01 Long term (current) use of anticoagulants
CPT/HCPCS: 36415; 85610

== ENCOUNTER 2021-02-06 10:12 | Outpatient (RCR) | payer MEDICARE, BC, SELFPAY ==
[2021-01-08 03:22] VITALS: BMI 26.6
[2021-02-06 10:53] LABS: International Normalized Ratio 2.5; Prothrombin Time (Protime)PT. 26.4 SECONDS (11.7-14.9)
== END 2021-02-08 18:00 | disposition home or self-care (01) ==
LOC: LAB 10:12
PROVIDERS: Family Provider Internal Medicine; PCP Internal Medicine; Referring Provider Internal Medicine Cardiovascular Disease; Visit Provider Internal Medicine Cardiovascular Disease
DX: I48.0 Paroxysmal atrial fibrillation (principal); Z79.01 Long term (current) use of anticoagulants
CPT/HCPCS: 36415; 85610

== ENCOUNTER 2021-03-10 10:21 | Outpatient (CLI) | payer MEDICARE, BC, SELFPAY ==
[2021-03-10 12:44] LABS: International Normalized Ratio 2.4; Prothrombin Time (Protime)PT. 25.6 SECONDS (11.7-14.9)
== END 2021-03-10 23:59 | disposition home or self-care (01) ==
LOC: LAB.FUTURE 10:22 → BIMLAB 03-11 11:16
PROVIDERS: PCP Internal Medicine; Visit Provider Internal Medicine Cardiovascular Disease
DX: I48.0 Paroxysmal atrial fibrillation (principal)
CPT/HCPCS: 36415; 85610

== ENCOUNTER 2021-04-10 10:50 | Outpatient (RCR) | payer MEDICARE, BC, SELFPAY ==
[2021-02-09 04:17] VITALS: BMI 26.6
[2021-04-10 13:27] LABS: International Normalized Ratio 2.6; Prothrombin Time (Protime)PT. 26.7 SECONDS (11.7-14.9)
== END 2021-05-08 18:00 | disposition home or self-care (01) ==
LOC: LAB 10:50
PROVIDERS: Family Provider Internal Medicine; PCP Internal Medicine; Referring Provider Internal Medicine Cardiovascular Disease; Visit Provider Internal Medicine Cardiovascular Disease
DX: I48.19 Other persistent atrial fibrillation (principal); Z79.01 Long term (current) use of anticoagulants
CPT/HCPCS: 36415; 85610

== ENCOUNTER 2021-05-12 10:25 | Outpatient (RCR) | payer MEDICARE, BC, SELFPAY ==
[2021-05-09 02:27] VITALS: BMI 26.6
[2021-05-12 11:31] LABS: International Normalized Ratio 2.5; Prothrombin Time (Protime)PT. 26.4 SECONDS (11.7-14.9)
== END 2021-05-12 18:00 | disposition home or self-care (01) ==
LOC: LAB 10:25
PROVIDERS: Family Provider Internal Medicine; PCP Internal Medicine; Referring Provider Internal Medicine Cardiovascular Disease; Visit Provider Internal Medicine Cardiovascular Disease
DX: I48.0 Paroxysmal atrial fibrillation (principal); Z79.01 Long term (current) use of anticoagulants
CPT/HCPCS: 36415; 85610

== ENCOUNTER 2021-06-23 10:59 | Outpatient (RCR) | payer MEDICARE, BC, SELFPAY ==
[2021-06-08 03:24] VITALS: BMI 26.6
[2021-06-11 10:50] LABS: International Normalized Ratio 3.1; Prothrombin Time (Protime)PT. 31.9 SECONDS (11.7-14.9)
[2021-06-23 12:08] LABS: Absolute Lymphocyte Count 1.79 X10^3/uL (0.83-4.51); Absolute Neutrophil Count 6.6 X10^3/uL (2.0-7.7); Basophil# 0.07 X10^3/uL; Basophil% 0.7 % (0-1); Eosinophil# 0.39 X10^3/uL; Lymphocyte # 1.79 X10^3/ul (0.83-4.51); Lymphocyte % 18.6 % (19-41); Mean Corp Hgb Conc 33.3 g/dL (32-36); Mean Corpuscular Hgb 32.9 pg (27.0-32.0); Mean Corpuscular Volume 98.6 fL (81-99); Mean Platelet Vol. 9.9 fl (6.2-12.0); Monocyte# 0.79 X10^3/uL; Monocyte% 8.2 % (0-10); NRBC Flagged by Analyzer 0 % (0-5); Neutrophil # 6.56 X10^3/uL (2.7-7.7); Neutrophil % 68.2 % (47-70); Platelet Count 301 K/mm3 (150-450); RBC Distribution Width CV 12.7 % (11.6-14.6); RBC Distribution Width SD 45.8 fl (35.1-43.9); Red Blood Count 3.65 M/mm3 (4.2-5.4); White Blood Count 9.6 K/mm3 (4.4-11.0)
[2021-06-23 12:27] LABS: AST(SGOT) 23 U/L (15-37); Alanine Aminotransfer ALT/SGPT 26 U/L (13-56); Albumin, Serum 3.8 g/dL (3.2-5.0); Alkaline Phosphatase 80 U/L (45-117); Anion Gap 8 (5-15); BUN 35 mg/dL (7-18); BUN/Creat Ratio 28.7 RATIO (10-20); Calcium,Total 9.3 mg/dL (8.5-10.1); Chloride 102 mmol/L (98-107); Creatinine, Serum 1.22 mg/dL (0.55-1.02); EST Glomerular Filtration Rate 45 mL/min (>60); Est Glom Filt Rate - Afr Amer 55 mL/min (>60); Globulin 3.8 g/dL (2.2-4.2); Glucose 121 mg/dL (74-106); Potassium 3.9 mmol/L (3.5-5.1); Protein, Total 7.6 g/dL (6.4-8.2); Sodium Level 138 mmol/L (136-145)
[2021-06-23 12:28] LABS: Vitamin B12 332 pg/mL (211-911)
[2021-06-23 12:30] LABS: International Normalized Ratio 2.8
== END 2021-07-08 23:59 ==
LOC: BIMLAB 10:59
PROVIDERS: Family Provider Internal Medicine; PCP Internal Medicine; Referring Provider Internal Medicine Cardiovascular Disease; Visit Provider Internal Medicine Cardiovascular Disease
DX: I48.0 Paroxysmal atrial fibrillation (principal); Z79.01 Long term (current) use of anticoagulants
CPT/HCPCS: 36415; 80053; 82607; 85025; 85610

== ENCOUNTER 2021-08-05 10:23 | Outpatient (RCR) | payer MEDICARE, BC, SELFPAY ==
[2021-07-09 01:11] VITALS: BMI 26.6
[2021-07-29 15:34] LABS: International Normalized Ratio 3.9; Prothrombin Time (Protime)PT. 37.7 SECONDS (11.7-14.9)
[2021-08-05 10:51] LABS: Prothrombin Time (Protime)PT. 31.1 SECONDS (11.7-14.9)
== END 2021-08-07 23:59 ==
LOC: BIMLAB 10:23
PROVIDERS: Family Provider Internal Medicine; PCP Internal Medicine; Referring Provider Internal Medicine Cardiovascular Disease; Visit Provider Internal Medicine Cardiovascular Disease
DX: I48.0 Paroxysmal atrial fibrillation (principal); Z79.01 Long term (current) use of anticoagulants
CPT/HCPCS: 36415; 85610

== ENCOUNTER 2021-08-25 14:39 | Outpatient (RCR) | payer MEDICARE, BC, SELFPAY ==
[2021-08-08 00:40] VITALS: BMI 26.6
[2021-08-25 17:39] LABS: International Normalized Ratio 2.8; Prothrombin Time (Protime)PT. 29.2 SECONDS (11.7-14.9)
== END 2021-09-07 03:33 | disposition home or self-care (01) ==
LOC: MTLAB 14:39
PROVIDERS: Family Provider Internal Medicine; PCP Internal Medicine; Referring Provider Internal Medicine Cardiovascular Disease; Visit Provider Internal Medicine Cardiovascular Disease
DX: I48.0 Paroxysmal atrial fibrillation (principal); Z79.01 Long term (current) use of anticoagulants
CPT/HCPCS: 36415; 85610

== ENCOUNTER 2021-09-09 10:48 | Outpatient (RCR) | payer MEDICARE, BC, SELFPAY ==
[2021-09-07 03:34] VITALS: BMI 26.6
[2021-09-09 12:45] LABS: International Normalized Ratio 2.7; Prothrombin Time (Protime)PT. 28.7 SECONDS (11.7-14.9)
== END 2021-10-08 23:59 ==
LOC: BIMLAB 10:48
PROVIDERS: Family Provider Internal Medicine; PCP Internal Medicine; Referring Provider Internal Medicine Cardiovascular Disease; Visit Provider Internal Medicine Cardiovascular Disease
DX: I48.0 Paroxysmal atrial fibrillation (principal); Z79.01 Long term (current) use of anticoagulants
CPT/HCPCS: 36415; 85610

== ENCOUNTER 2021-10-10 10:10 | Outpatient (RCR) | payer MEDICARE, BC, SELFPAY ==
[2021-10-09 00:11] VITALS: BMI 26.6
[2021-10-10 12:32] LABS: International Normalized Ratio 2.9; Prothrombin Time (Protime)PT. 29.6 SECONDS (11.7-14.9)
== END 2021-11-07 23:59 ==
LOC: BIMLAB 10:10
PROVIDERS: Family Provider Internal Medicine; PCP Internal Medicine; Referring Provider Internal Medicine Cardiovascular Disease; Visit Provider Internal Medicine Cardiovascular Disease
DX: I48.0 Paroxysmal atrial fibrillation (principal); Z79.01 Long term (current) use of anticoagulants
CPT/HCPCS: 36415; 85610

== ENCOUNTER → 2021-10-17 | Outpatient (CLI) | payer MEDICARE, BC, SELFPAY ==
--- NOTE | 2021-10-17 10:55 | BI_ITS ---
MAMMOGRAPHY - BILATERAL SCREENING REASON FOR EXAM: Female, 80 years old. Routine annual screening examination. PERTINENT HISTORY: Personal history of breast cancer. Prior right lumpectomy with radiation. Prior left stereotactic breast biopsy. TECHNIQUE: Digital bilateral breast nnamdi (3D mammographic acquisition) in the CC and MLO projections. 2-D mediolateral oblique (MLO) and craniocaudad (CC) views of both breasts were obtained. CAD: Full Field Digital Mammography with Computer Added Detection was performed. COMPARISON: Comparison is made with prior mammogram dated 08/15/2019 and 09/22/2019. Comparison is also made with prior MRI of the breasts dated 08/26/2020. FINDINGS: Breast Composition: The breasts are almost entirely fatty. The patient is status post ectomy in the upper outer quadrant of the left breast with the postoperative dystrophic calcifications which have progressed as compared to prior study. Residual breast deformity and architectural distortion is seen. There is evidence of overlying skin thickening. No other significant abnormalities are identified. BI/SCRN MAMM (CAD)W/NNAMDI BILAT IMPRESSION: Stable bilateral screening mammogram. Yearly follow-up mammogram recommended. (A) ASSESSMENT CATEGORY: BIRADS Category 2: Benign. A letter regarding these results will be sent to the patient by the facility within 30 days. Approximately 10% of breast cancers are not detected by mammography. A normal mammogram should not delay biopsy of a clinically suspicious abnormality. [id number] Electronically Signed: Brian Whiting MD at 12:38 EDT ,
== END | disposition home or self-care (01) ==
LOC: OPBI 10:54
PROVIDERS: PCP Internal Medicine; Visit Provider Surgery
DX: Z12.31 Encounter for screening mammogram for malignant neoplasm of breast (principal)
CPT/HCPCS: 77063; 77067

== ENCOUNTER 2021-11-12 10:56 | Outpatient (RCR) | payer MEDICARE, BC, SELFPAY ==
[2021-11-08 00:39] VITALS: BMI 26.6
[2021-11-12 11:39] LABS: International Normalized Ratio 2.3; Prothrombin Time (Protime)PT. 24.8 SECONDS (11.7-14.9)
== END 2021-11-12 18:00 | disposition home or self-care (01) ==
LOC: LAB 10:56
PROVIDERS: Family Provider Internal Medicine; PCP Internal Medicine; Referring Provider Internal Medicine Cardiovascular Disease; Visit Provider Internal Medicine Cardiovascular Disease
DX: I48.0 Paroxysmal atrial fibrillation (principal); Z79.01 Long term (current) use of anticoagulants
CPT/HCPCS: 36415; 85610

== ENCOUNTER → 2021-12-16 | Outpatient (CLI) | payer MEDICARE, BC, SELFPAY ==
[2021-12-16 12:58] LABS: International Normalized Ratio 2.3
== END | disposition home or self-care (01) ==
LOC: BIMLAB 10:35
PROVIDERS: PCP Internal Medicine; Visit Provider Internal Medicine Cardiovascular Disease
DX: I48.0 Paroxysmal atrial fibrillation (principal); Z79.01 Long term (current) use of anticoagulants
CPT/HCPCS: 36415; 85610

== ENCOUNTER → 2021-12-24 | Outpatient (CLI) | payer MEDICARE, BC, SELFPAY ==
[2021-12-24 16:25] LABS: Absolute Lymphocyte Count 2.61 X10^3/uL (0.83-4.51); Absolute Neutrophil Count 5.2 X10^3/uL (2.0-7.7); Basophil# 0.05 X10^3/uL; Basophil% 0.6 % (0-1); Eosinophil# 0.42 X10^3/uL; Eosinophils% 4.6 % (0-5); Hematocrit 37.9 % (37-47); Hemoglobin 12.6 g/dL (12.0-15.0); Lymphocyte # 2.61 X10^3/ul (0.83-4.51); Lymphocyte % 28.7 % (19-41); Mean Corp Hgb Conc 33.2 g/dL (32-36); Mean Corpuscular Hgb 33.2 pg (27.0-32.0); Mean Platelet Vol. 9.7 fl (6.2-12.0); Monocyte# 0.77 X10^3/uL; Monocyte% 8.5 % (0-10); NRBC Flagged by Analyzer 0 % (0-5); Neutrophil # 5.22 X10^3/uL (2.7-7.7); Neutrophil % 57.5 % (47-70); Platelet Count 309 K/mm3 (150-450); RBC Distribution Width CV 12.9 % (11.6-14.6); RBC Distribution Width SD 47.4 fl (35.1-43.9); Red Blood Count 3.79 M/mm3 (4.2-5.4); White Blood Count 9.1 K/mm3 (4.4-11.0)
[2021-12-24 16:48] LABS: Anion Gap 6 (5-15); BUN 30 mg/dL (7-18); Calcium,Total 9.3 mg/dL (8.5-10.1); Chloride 106 mmol/L (98-107); Creatinine, Serum 1.11 mg/dL (0.55-1.02); EST Glomerular Filtration Rate 50 mL/min (>60); Est Glom Filt Rate - Afr Amer 61 mL/min (>60); Glucose 97 mg/dL (74-106); Potassium 3.8 mmol/L (3.5-5.1); Sodium Level 142 mmol/L (136-145)
== END | disposition home or self-care (01) ==
LOC: LAB 15:09
PROVIDERS: PCP Internal Medicine; Visit Provider Internal Medicine
DX: I10 Essential (primary) hypertension (principal)
CPT/HCPCS: 36415; 80048; 85025

== ENCOUNTER → 2022-01-16 | Outpatient (CLI) | payer MEDICARE, BC, SELFPAY ==
[2022-01-16 16:50] LABS: International Normalized Ratio 2.3; Prothrombin Time (Protime)PT. 24.6 SECONDS (11.7-14.9)
== END | disposition home or self-care (01) ==
LOC: BIMLAB 14:54
PROVIDERS: PCP Internal Medicine; Visit Provider Internal Medicine Cardiovascular Disease
DX: I48.0 Paroxysmal atrial fibrillation (principal); Z79.01 Long term (current) use of anticoagulants
CPT/HCPCS: 36415; 85610

== ENCOUNTER 2022-02-16 15:44 | Outpatient (RCR) | payer MEDICARE, BC, SELFPAY ==
[2021-12-09 09:38] VITALS: BMI 26.6
[2022-02-16 16:54] LABS: International Normalized Ratio 2.4; Prothrombin Time (Protime)PT. 25.7 SECONDS (11.7-14.9)
== END 2022-02-16 17:00 | disposition home or self-care (01) ==
LOC: LAB 15:44
PROVIDERS: Family Provider Internal Medicine; PCP Internal Medicine; Referring Provider Internal Medicine Cardiovascular Disease; Visit Provider Internal Medicine Cardiovascular Disease
DX: I48.0 Paroxysmal atrial fibrillation (principal); Z79.01 Long term (current) use of anticoagulants
CPT/HCPCS: 36415; 85610

== ENCOUNTER 2022-03-20 09:53 | Outpatient (RCR) | payer MEDICARE, BC, SELFPAY ==
[2022-03-11 08:18] VITALS: BMI 26.6
[2022-03-20 10:53] LABS: International Normalized Ratio 2.4; Prothrombin Time (Protime)PT. 26.1 SECONDS (11.7-14.9)
== END 2022-03-20 18:00 | disposition home or self-care (01) ==
LOC: LAB 09:53
PROVIDERS: Family Provider Internal Medicine; PCP Internal Medicine; Referring Provider Internal Medicine Cardiovascular Disease; Visit Provider Internal Medicine Cardiovascular Disease
DX: I48.0 Paroxysmal atrial fibrillation (principal); Z79.01 Long term (current) use of anticoagulants
CPT/HCPCS: 36415; 85610

== ENCOUNTER 2022-04-17 13:59 | Outpatient (RCR) | payer MEDICARE, BC, SELFPAY ==
[2022-04-07 23:01] VITALS: BMI 26.6
[2022-04-17 14:52] LABS: International Normalized Ratio 2.8; Prothrombin Time (Protime)PT. 28.9 SECONDS (11.7-14.9)
== END 2022-05-08 23:00 | disposition home or self-care (01) ==
LOC: LAB 13:59
PROVIDERS: Family Provider Internal Medicine; PCP Internal Medicine; Referring Provider Internal Medicine Cardiovascular Disease; Visit Provider Internal Medicine Cardiovascular Disease
DX: I48.0 Paroxysmal atrial fibrillation (principal); Z79.01 Long term (current) use of anticoagulants
CPT/HCPCS: 36415; 85610

== ENCOUNTER 2022-05-20 14:01 | Outpatient (RCR) | payer MEDICARE, BC, SELFPAY ==
[2022-05-09 00:29] VITALS: BMI 26.6
[2022-05-20 15:39] LABS: Prothrombin Time (Protime)PT. 31.2 SECONDS (11.7-14.9)
== END 2022-06-07 23:59 ==
LOC: BIMLAB 14:01
PROVIDERS: Family Provider Internal Medicine; PCP Internal Medicine; Referring Provider Internal Medicine Cardiovascular Disease; Visit Provider Internal Medicine Cardiovascular Disease
DX: I48.0 Paroxysmal atrial fibrillation (principal); Z79.01 Long term (current) use of anticoagulants
CPT/HCPCS: 36415; 85610

== ENCOUNTER 2022-06-24 10:46 | Outpatient (RCR) | payer MEDICARE, BC, SELFPAY ==
[2022-06-08 00:14] VITALS: BMI 26.6
[2022-06-24 12:26] LABS: Prothrombin Time (Protime)PT. 31.3 SECONDS (11.7-14.9)
[2022-06-24 12:34] LABS: AST(SGOT) 23 U/L (15-37); Alanine Aminotransfer ALT/SGPT 23 U/L (13-56); Albumin, Serum 3.8 g/dL (3.2-5.0); Alkaline Phosphatase 88 U/L (45-117); Anion Gap 7 (5-15); BUN 29 mg/dL (7-18); BUN/Creat Ratio 25.7 RATIO (10-20); Calcium,Total 9.1 mg/dL (8.5-10.1); Chloride 106 mmol/L (98-107); Creatinine, Serum 1.13 mg/dL (0.55-1.02); EST Glomerular Filtration Rate 49 mL/min (>60); Est Glom Filt Rate - Afr Amer 60 mL/min (>60); Globulin 3.7 g/dL (2.2-4.2); Glucose 118 mg/dL (74-106); Potassium 3.8 mmol/L (3.5-5.1); Protein, Total 7.5 g/dL (6.4-8.2); Sodium Level 142 mmol/L (136-145)
[2022-06-24 12:36] LABS: Vitamin B12 553 pg/mL (211-911); Vitamin D,25 Hydroxy 69.1 ng/mL
== END 2022-07-08 23:59 ==
LOC: BIMLAB 10:46
PROVIDERS: Family Provider Internal Medicine; PCP Internal Medicine; Referring Provider Internal Medicine Cardiovascular Disease; Visit Provider Internal Medicine Cardiovascular Disease
DX: I48.0 Paroxysmal atrial fibrillation (principal); Z79.01 Long term (current) use of anticoagulants
CPT/HCPCS: 36415; 80053; 82306; 82607; 85610

== ENCOUNTER 2022-07-28 15:35 | Outpatient (RCR) | payer MEDICARE, BC, SELFPAY ==
[2022-07-09 00:17] VITALS: BMI 26.6
[2022-07-28 17:09] LABS: International Normalized Ratio 2.4
== END 2022-08-07 23:59 ==
LOC: BIMLAB 15:35
PROVIDERS: Family Provider Internal Medicine; PCP Internal Medicine; Referring Provider Internal Medicine Cardiovascular Disease; Visit Provider Internal Medicine Cardiovascular Disease
DX: I48.0 Paroxysmal atrial fibrillation (principal); Z79.01 Long term (current) use of anticoagulants
CPT/HCPCS: 36415; 85610

== ENCOUNTER 2022-08-28 11:00 | Outpatient (RCR) | payer MEDICARE, BC, SELFPAY ==
[2022-08-08 00:40] VITALS: BMI 26.6
[2022-08-28 12:48] LABS: International Normalized Ratio 2.7; Prothrombin Time (Protime)PT. 28.9 SECONDS (11.7-14.9)
== END 2022-09-07 23:59 ==
LOC: BIMLAB 11:00
PROVIDERS: Family Provider Internal Medicine; PCP Internal Medicine; Referring Provider Internal Medicine Cardiovascular Disease; Visit Provider Internal Medicine Cardiovascular Disease
DX: I48.0 Paroxysmal atrial fibrillation (principal); Z79.01 Long term (current) use of anticoagulants
CPT/HCPCS: 36415; 85610

== ENCOUNTER → 2022-09-08 | Outpatient (CLI) | payer MEDICARE, BC, SELFPAY ==
--- NOTE | 2022-09-08 10:57 | BD_ITS ---
STUDY: DUAL ENERGY X-RAY ABSORPTIOMETRY / DXA REASON FOR EXAM: Female, 81 years old. Osteopenia with high fracture risk TECHNIQUE: Bone Mineral Density (BMD) measurements of lumbar spine and bilateral hips were obtained. COMPARISON: Comparison is made with prior study dated July 10, 2020. FINDINGS: Lumbar Spine (L1-L4): g/cm2 (0.831) / T-score (-1.7) / Z-score (0.9) Findings are suggestive of osteopenia with a moderate fracture risk. Left Femur Total: g/cm2 (0.776) / T-score (-1.4) / Z-score (0.7) Left Femoral Neck: g/cm2 (0.680) / T-score (-1.5) / Z-score (0.8) Right Femur Total: g/cm2 (0.727) / T-score (-1.8) / Z-score (0.3) Right Femoral Neck: g/cm2 (0.697) / T-score (-1.4) / Z-score (0.9) The T-Scores on the most recent prior examination were: Lumbar Spine (L1-L4): There has been worsening of bone density since the previous examination. Left Femur Total: which represents an improvement of 0.8%. Right Femur Total: which represents a worsening of 6.8%. BD/Dexa Bone Density Study IMPRESSION: The patient is considered osteopenic as outlined below according to World Jes[employer]s Organization (WHO) criteria with a moderate fracture risk. There has been worsening of bone density since the previous examination. Reference Information: The T-score is the number of standard deviations above or below the standard which is normal for young adults at their peak bone mineral density. The World Health Organization (WHO) interprets the T-scores as follows: Above -1 Normal bone density Between -1 and -2.5 Osteopenia Equal to / or below -2.5 Osteoporosis As a practical clinical guideline, osteopenia may be graded as follows: Mild -1 through -1.5 Moderate -1.6 through -2.0 Severe -2.1 through -2.4 The Z-score is the number of standard deviations above or below age-matched controls. A Z-score of less than -1.5 would be considered abnormal. References: 1. NIH Osteoporosis and Related Bone Diseases www osteo.org 2. International Society for Clinical Densitometry www iscd.org 3. National Osteoporosis Foundation www nof.org Electronically Signed: Brian Whiting MD at 8:29 EDT ,
== END | disposition home or self-care (01) ==
PROVIDERS: PCP Internal Medicine; Referring Provider Internal Medicine; Visit Provider Internal Medicine
DX: Z13.820 Encounter for screening for osteoporosis (principal); Z78.0 Asymptomatic menopausal state
CPT/HCPCS: 77080

== ENCOUNTER 2022-10-06 10:25 | Outpatient (RCR) | payer MEDICARE, BC, SELFPAY ==
[2022-09-08 00:13] VITALS: BMI 26.6
[2022-09-29 12:34] LABS: Prothrombin Time (Protime)PT. 39.6 SECONDS (11.7-14.9)
[2022-10-06 11:35] LABS: International Normalized Ratio 2.3; Prothrombin Time (Protime)PT. 25.5 SECONDS (11.7-14.9)
== END 2022-10-06 18:00 | disposition home or self-care (01) ==
LOC: LAB 10:25
PROVIDERS: Family Provider Internal Medicine; PCP Internal Medicine; Referring Provider Internal Medicine Cardiovascular Disease; Visit Provider Internal Medicine Cardiovascular Disease
DX: I48.0 Paroxysmal atrial fibrillation (principal); Z79.01 Long term (current) use of anticoagulants
CPT/HCPCS: 36415; 85610

== ENCOUNTER 2022-11-02 13:57 | Outpatient (RCR) | payer MEDICARE, BC, SELFPAY ==
[2022-10-08 22:54] VITALS: BMI 26.6
[2022-10-27 16:50] LABS: International Normalized Ratio 3.8; Prothrombin Time (Protime)PT. 38.1 SECONDS (11.7-14.9)
[2022-11-02 15:32] LABS: International Normalized Ratio 2.8; Prothrombin Time (Protime)PT. 29.8 SECONDS (11.7-14.9)
== END 2022-11-02 18:00 | disposition home or self-care (01) ==
LOC: MTLAB 13:57
PROVIDERS: Family Provider Internal Medicine; PCP Internal Medicine; Referring Provider Internal Medicine Cardiovascular Disease; Visit Provider Internal Medicine Cardiovascular Disease
DX: I48.0 Paroxysmal atrial fibrillation (principal); Z79.01 Long term (current) use of anticoagulants
CPT/HCPCS: 36415; 85610

== ENCOUNTER → 2022-12-01 | Outpatient (CLI) | payer MEDICARE, BC, SELFPAY ==
--- NOTE | 2022-12-01 11:45 | BI_ITS ---
MAMMOGRAPHY - BILATERAL SCREENING REASON FOR EXAM: Female, 81 years old. Routine annual screening examination. PERTINENT HISTORY: Personal history of breast cancer. Prior left lumpectomy and radiation. Daughter with breast cancer. Prior left stereotactic and left ultrasound breast biopsies. TECHNIQUE: Digital bilateral breast nnamdi (3D mammographic acquisition) in the CC and MLO projections. 2-D mediolateral oblique (MLO) and craniocaudad (CC) views of both breasts were obtained. CAD: Full Field Digital Mammography with Computer Added Detection was performed. COMPARISON: Comparison is made with prior examination of October 17, 2021 and September 22, 2019 FINDINGS: Breast Composition: The breasts are almost entirely fatty. The patient is status post lumpectomy in the upper outer quadrant of the left breast with resultant postoperative dystrophic calcification and scarring with deformity of the left breast. A tissue clip marker is seen in the retroareolar region of the left breast. Stable appearance of the right breast. No other significant abnormalities are identified. There has been no significant change since the prior study. BI/SCRN MAMM (CAD)W/NNAMDI BILAT IMPRESSION: Stable bilateral screening mammogram. Yearly follow-up mammogram recommended. (A) ASSESSMENT CATEGORY: BIRADS Category 2: Benign. A letter regarding these results will be sent to the patient by the facility within 30 days. Approximately 10% of breast cancers are not detected by mammography. A normal mammogram should not delay biopsy of a clinically suspicious abnormality. [id number] Electronically Signed: Brian Whiting MD at 12:51 EDT ,
== END | disposition home or self-care (01) ==
LOC: OPBI 11:41
PROVIDERS: PCP Internal Medicine; Referring Provider Internal Medicine; Visit Provider Internal Medicine
DX: Z12.31 Encounter for screening mammogram for malignant neoplasm of breast (principal)
CPT/HCPCS: 77063; 77067

== ENCOUNTER 2022-12-02 14:09 | Outpatient (RCR) | payer MEDICARE, BC, SELFPAY ==
[2022-11-08 05:08] VITALS: BMI 26.6
[2022-11-09 17:20] LABS: International Normalized Ratio 1.8; Prothrombin Time (Protime)PT. 21.2 SECONDS (11.7-14.9)
[2022-11-17 14:29] LABS: International Normalized Ratio 1.8; Prothrombin Time (Protime)PT. 21.2 SECONDS (11.7-14.9)
[2022-11-25 17:04] LABS: International Normalized Ratio 2.3; Prothrombin Time (Protime)PT. 25.4 SECONDS (11.7-14.9)
[2022-12-02 16:03] LABS: International Normalized Ratio 2.4
== END 2022-12-08 23:59 ==
LOC: BIMLAB 14:09
PROVIDERS: Family Provider Internal Medicine; PCP Internal Medicine; Referring Provider Internal Medicine Cardiovascular Disease; Visit Provider Internal Medicine Cardiovascular Disease
DX: Z79.01 Long term (current) use of anticoagulants; I48.19 Other persistent atrial fibrillation; I48.0 Paroxysmal atrial fibrillation
CPT/HCPCS: 36415; 85610

== ENCOUNTER → 2022-12-24 | Outpatient (CLI) | payer MEDICARE, BC, SELFPAY ==
--- NOTE | 2022-12-24 12:50 | ECHOCS_ITS ---
Reason For Study: Secondary PHTN Procedure This was a 2D Doppler, Color Flow transthoracic echocardiogram. The study was technically difficult. Contrast injection was performed. Exam performed in department. Left Ventricle Normal LV size. Left ventricular systolic function is normal. The estimated ejection fraction is 60 %. No regional wall motion abnormalities noted. Right Ventricle Normal RV size. Normal systolic function. Atria The left atrium is mildly enlarged. Normal right atrium. Mitral Valve There is mild to moderate mitral annular calcification. Mild (1+) eccentric mitral valve insufficiency. Tricuspid Valve Normal tricuspid valve. Mild tricuspid valve insufficiency. Pulmonary artery systolic pressure is 38 mmHg. Aortic Valve Trisinus/trileaflet aortic valve. Mild focal aortic valve calcification. Peak aortic valve gradient 12 mmHg. Mean aortic valve gradient 6 mmHg. Pulmonic Valve Normal pulmonic valve. Great Vessels Normal aortic root. The pulmonary artery is normal size. Normal inferior vena cava. Pericardium/Pleural No pericardial effusion. Medication 22 gauge I.V. with prn adaptor inserted into right arm. Diluted definity 2ml given slow IV push to enhance endocardial definition. MMode/2D Measurements & Calculations LVIDd: 4.4 cm IVSd: 0.88 cm Ao root diam: 3.5 cm LVIDs: 3.5 cm LVPWd: 0.96 cm LA dimension: 3.9 cm RVDd: 3.6 cm FS: 19.6 % LAV(MOD-bp): 89.2 ml LA A4 area: 24.5 cm2 RA A4 area: 19.2 cm2 LAV(MOD-bp) Indexed: 47.1 ml/m2 LAV(MOD-sp2): 99.7 ml LAV(MOD-sp4): 70.6 ml TAPSE: 1.6 cm Doppler Measurements & Calculations MV E max oliver: 77.0 cm/sec MV V2 max: 84.6 cm/sec Ao V2 max: 172.2 cm/sec MV max P.9 mmHg Ao max P.9 mmHg MV V2 mean: 38.4 cm/sec Ao V2 mean: 117.9 cm/sec MV mean P.79 mmHg Ao mean P.4 mmHg MV V2 VTI: 17.9 cm Ao V2 VTI: 32.6 cm AV (velocity ratio): 0.47 LV V1 max: 78.0 cm/sec MR max oliver: 475.6 cm/sec PA V2 max: 71.1 cm/sec LV V1 max P.4 mmHg MR max P.5 mmHg LV V1 mean P.5 mmHg MR mean oliver: 362.4 cm/sec LV V1 mean: 57.6 cm/sec MR mean P.2 mmHg LV V1 VTI: 15.5 cm MR VTI: 151.0 cm TR max oliver: 293.3 cm/sec TR max P.4 mmHg ECHO/Echo Complete W/ Contrast Interpretation Summary The left atrium is mildly enlarged. Pulmonary artery systolic pressure is 38 mmHg. Normal LV size. Left ventricular systolic function is normal. The estimated ejection fraction is 60 %. Mild focal aortic valve calcification. Mean aortic valve gradient 6 mmHg. Contrast injection was performed. Ordering Physician: Lesly Smart Referring Physician: Lesly Smart Performed By: Trae Kang RCS
== END | disposition home or self-care (01) ==
LOC: CVS 12:48
PROVIDERS: PCP Internal Medicine; Referring Provider Physician Assistant Medical; Visit Provider Physician Assistant Medical
DX: I27.21 Secondary pulmonary arterial hypertension (principal)
CPT/HCPCS: 93306; Q9957; A4216; C8929

== ENCOUNTER → 2022-12-25 | Outpatient (CLI) | payer MEDICARE, BC, SELFPAY ==
[2022-12-25 12:39] LABS: Absolute Lymphocyte Count 2.14 X10^3/uL (0.83-4.51); Absolute Neutrophil Count 3.8 X10^3/uL (2.0-7.7); Basophil# 0.04 X10^3/uL; Basophil% 0.6 % (0-1); Eosinophil# 0.33 X10^3/uL; Eosinophils% 4.7 % (0-5); Hematocrit 38.8 % (37-47); Hemoglobin 12.5 g/dL (12.0-15.0); Lymphocyte # 2.14 X10^3/ul (0.83-4.51); Lymphocyte % 30.6 % (19-41); Mean Corp Hgb Conc 32.2 g/dL (32-36); Mean Corpuscular Hgb 32.6 pg (27.0-32.0); Mean Corpuscular Volume 101.3 fL (81-99); Mean Platelet Vol. 10.1 fl (6.2-12.0); Monocyte# 0.68 X10^3/uL; Monocyte% 9.7 % (0-10); NRBC Flagged by Analyzer 0 % (0-5); Neutrophil # 3.79 X10^3/uL (2.7-7.7); Neutrophil % 54.3 % (47-70); Platelet Count 261 K/mm3 (150-450); RBC Distribution Width CV 12.9 % (11.6-14.6); RBC Distribution Width SD 48.2 fl (35.1-43.9); Red Blood Count 3.83 M/mm3 (4.2-5.4)
[2022-12-25 13:15] LABS: Anion Gap 7 (5-15); BUN 25 mg/dL (7-18); BUN/Creat Ratio 24.3 RATIO (10-20); Chloride 104 mmol/L (98-107); Creatinine, Serum 1.03 mg/dL (0.55-1.02); EST Glomerular Filtration Rate 55 mL/min (>60); Est Glom Filt Rate - Afr Amer 66 mL/min (>60); Glucose 89 mg/dL (74-106); Potassium 4.1 mmol/L (3.5-5.1); Sodium Level 142 mmol/L (136-145)
== END | disposition home or self-care (01) ==
LOC: BIMLAB 11:21
PROVIDERS: PCP Internal Medicine; Referring Provider Internal Medicine; Visit Provider Internal Medicine
DX: E78.5 Hyperlipidemia, unspecified (principal)
CPT/HCPCS: 36415; 80048; 85025

== ENCOUNTER 2023-01-06 14:32 | Outpatient (RCR) | payer MEDICARE, BC, SELFPAY ==
[2022-12-09 00:24] VITALS: BMI 26.6
[2022-12-09 16:00] LABS: International Normalized Ratio 2.5; Prothrombin Time (Protime)PT. 26.9 SECONDS (11.7-14.9)
[2022-12-16 12:26] LABS: International Normalized Ratio 2.9; Prothrombin Time (Protime)PT. 30.7 SECONDS (11.7-14.9)
[2022-12-24 14:17] LABS: International Normalized Ratio 2.7; Prothrombin Time (Protime)PT. 28.8 SECONDS (11.7-14.9)
[2023-01-06 15:45] LABS: International Normalized Ratio 2.5; Prothrombin Time (Protime)PT. 26.9 SECONDS (11.7-14.9)
== END 2023-01-07 23:59 ==
LOC: BIMLAB 14:32
PROVIDERS: Family Provider Internal Medicine; PCP Internal Medicine; Referring Provider Internal Medicine Cardiovascular Disease; Visit Provider Internal Medicine Cardiovascular Disease
DX: Z79.01 Long term (current) use of anticoagulants; I48.19 Other persistent atrial fibrillation
CPT/HCPCS: 36415; 85610

== ENCOUNTER 2023-01-12 10:22 | Day surgery (SDC) | payer MEDICARE, BC, SELFPAY ==
--- NOTE | 2023-01-06 08:53 | HP.PCM_ITS ---
History and Physical Date of Admission: 01/12/23 RAMON ROSALES, is a 82-year-old lady who presents today for a cardioversion. She has a history of hypertension, hypercholesterolemia, atrial fibrillation, no obstructive coronary disease who presents for a follow-up visit. She did undergo a cardiac catheterization in October 2018 demonstrating normal coronary arteries. She did have a DCCV in 2018. Her echocardiogram from December of this year demonstrated an ejection fraction of 60%, mildly enlarged left atrium and normal right atrium. She had COVID in September, since then she has been in Afib. She is mildly symptomatic with fatigue. It is difficult to say if this related to COVID. She does not have any chest pain/heaviness. She does not have any palpitations. She does get up approx 4 times a night to go to the bathroom and does not fall asleep easily. She does not have any edema. She does not have any lightheadedenss/dizziness. Intake Vital Signs See EMR Medications: See EMR Allergies: See EMR PFSH Medical History Anemia Bleeding hemorrhoids Breast cancer Breast cancer of upper-outer quadrant of left female breast Calcification of left breast Cellulitis Chronic diarrhea Essential (primary) hypertension Fatigue Health care maintenance Hemorrhoids History of COVID-19 Hyperlipidemia Non-rheumatic mitral regurgitation Osteopenia Osteopenia with high risk of fracture Other screening mammogram Paroxysmal atrial fibrillation Persistent atrial fibrillation Seasonal allergies Secondary pulmonary arterial hypertension Vitamin B12 deficiency Surgical History History of cardioversion (01/11/19) History of colonoscopy (03/2017) History of hysterectomy History of left breast biopsy (07/06/18) History of left breast biopsy (09/2019) History of lumpectomy of left breast History of right and left heart catheterization (10/26/18) Family History Mother Heart disease chf HyperlipemiaFather HypertensionOther Depression Social History Smoking Status: Never smoker alcohol intake: never ROS Const Const: Positive for fatigue; Negative for weakness, fever(s) or headache(s) Eyes Eyes: Negative for blind spots, loss of peripheral vision or transient loss of vision ENT ENT: Negative for headache(s), dizziness, tinnitus, Nosebleed/epistaxis or balance problems Cardio Chest Pain: No Palpitations: No Edema: None Muscle aches with walking: None Resp Respiratory: Negative for SOB with activity, SOB at rest, SOB orthopnea\SOB lying down or Cough GI GI: Negative nausea, vomiting, heartburn or vomiting blood/hematemesis : Negative for hematuria Musc Musc: Negative for muscle aches/ myalgia, muscle weakness, joint pain or balance problems Neuro Neuro: Negative for dizziness, lightheadedness, near syncope, syncope, orthostatic symptoms, headache(s) or weakness Dwight Hematologic/Lymphatic: Negative for easy bleeding Endo Endo: Positive for fatigue Cardiology Exam Const Appearance: cooperative, healthy appearing, comfortable and no acute distress Nutritional Appearance: well nourished and overweight Orientation: alert, awake and oriented x3 Head Head: normal to inspection Ears: hearing grossly normal bilaterally Nose: external nose normal Face and Sinus: face symmetric Mouth: oral mucosae normal Eyes General: appearance normal, both eyes and all related structures Eyelids: eyelids normal EOM: EOM intact bilaterally Neck Neck: normal visual inspection and no JVD Carotids: normal carotid upstroke Chest Chest inspection: normal inspection of the chest, symmetric chest movement and normal respiratory effort; Negative cough Auscultation: Bilateral: Clear to Auscultation Cardio Rate: regular rate Rhythm: irregularly irregular Heart sounds: S1 normal and S2 normal; Negative rub, gallop or murmur GI GI: normal to inspection Neuro General: patient alert, patient awake, patient oriented x3 and CN's II-XI intact bilaterally Skin Skin: no rashes or lesions noted Extremities Pulses: Normal: Right Posterior Tibial Pulse, Left Posterior Tibial Pulse, Right Radial Pulse and Left Radial Pulse Lower Extremity Edema: None: Bilateral Psych Psychological: normal affect Supplemental Info Supplemental Information Echocardiogram 12/24/2022: Interpretation Summary The left atrium is mildly enlarged. Pulmonary artery systolic pressure is 38 mmHg. Normal LV size. Left ventricular systolic function is normal. The estimated ejection fraction is 60 %. Mild focal aortic valve calcification. Mean aortic valve gradient 6 mmHg. Contrast injection was performed. Echocardiogram from 07/19/2019: Interpretation Summary The estimated ejection fraction is 65 %. Stage 2 diastolic dysfunction. The left atrium is severely enlarged. Mild (1+) mitral valve insufficiency. Trivial tricuspid valve insufficiency. Right ventricular systolic pressure estimated to be 43 mmHg. Mild pulmonary hypertension. The global longitudinal strain = -22.5 % (normal). The study was technically difficult. Contrast injection was performed. There is no comparison study available. Stress echocardiogram from 08/25/2017: Interpretation Summary The estimated ejection fraction is 55 %. Normal, adequate, treadmill echocardiogram. Negative for ischemia by EKG and echocardiographic criteria. No anginal symptoms noted. Hypertensive blood pressure response to exercise. Poor exercise capacity for age. Test terminated due to dyspnea and attainment of target heart rate. Final LVEF of 75%. No complications. Heart catheterization from 11/03/2018: CONCLUSIONS Normal coronary arteries Non obstructive coronary arteries Normal LV size, wall motion,and systolic function The patient has pulmonary hypertension which is moderate. RECOMMENDATIONS Management as per referring [employer] Helper D/c plavix, DCCV in 4 weeks. If unsuccessful, will add flecainide and repeat DCCV. Manual sheath removal. CORONARY ANGIOGRAPHY DOMINANCE: Co- Dominant LEFT HEART ASSESSMENT Left Ventricular Ejection Fraction: by LV Gram 75 % Normal LV wall motion Normal Left Ventricular systolic function RIGHT HEART ASSESSMENT Thermal CO: 4.68 Thermal CI: 2.5 Sammy CO: 6.12 Sammy CI: 3.27 PW: /25 15 PA: 43/15 26 RV: 45/-1 6 RA: /9 6 PVR: 188 SVR: 1453 Right Heart pressures - elevated Pulmonary Hypertension Moderate LEFT MAIN: Angiographically normal LEFT ANTERIOR DESCENDING ARTERY: MID LAD: 30 % Stenosis CIRCUMFLEX ARTERY: Angiographically normal RIGHT CORONARY ARTERY: Angiographically normal Assessment and Plan Assessment and Plan (1) Other persistent atrial fibrillation: Status: Acute Plan: Patient is in persistent atrial fibrillation. This does appear to have started during her COVID. Her heart rate is controlled. She is anticoagulated with Coumadin. Her echocardiogram from 12/24/2022 demonstrated ejection fraction of 60%, mildly enlarged left atrium and normal right atrium. Would like to proceed with a cardioversion in attempt to maintain sinus rhythm.
[2023-01-12 10:54] VITALS: BMI 26.4
--- NOTE | 2023-01-12 12:30 | PCM.OP.PRO ---
Procedure Report Date of Procedure: 01/12/23 DC cardioversion. 82-year-old lady with a history of chronic persistent atrial fibrillation. The patient was brought to the cardiac catheterization lab in the postabsorptive nonsedated state. Informed consent was obtained. The patient was seen by Dr. De of the critical care division. Anterior-posterior pads were applied. 30 mg of intravenous propofol was then administered in 200 J of synchronized DC biphasic cardioversion energy were applied with prompt reversal to sinus rhythm. Patient tolerated the procedure well. Conclusion: Successful DC cardioversion from atrial fibrillation to sinus rhythm. Follow-up as per office protocol.
[2023-01-13 06:44] LABS: INR Fingerstick 2.9; Prothrombin Time Fingerstick 31.5 SEC (11.7-14.9)
== END 2023-01-12 13:15 | disposition home or self-care (01) ==
LOC: CLSP 10:25
PROVIDERS: PCP Internal Medicine; Referring Provider Internal Medicine Cardiovascular Disease; Visit Provider Internal Medicine Cardiovascular Disease
DX: I27.20 Pulmonary hypertension, unspecified (principal); E78.00 Pure hypercholesterolemia, unspecified; I10 Essential (primary) hypertension; Z86.16 Personal history of COVID-19; Z79.899 Other long term (current) drug therapy; Z79.01 Long term (current) use of anticoagulants
CPT/HCPCS: 36416; 85610; 92960; 93005; J7040

== ENCOUNTER 2023-02-03 11:17 | Outpatient (RCR) | payer MEDICARE, BC, SELFPAY ==
[2023-01-08 00:37] VITALS: BMI 26.6
--- NOTE | 2023-01-12 12:32 | PRO.PCM_ITS ---
Procedure Report Date of Procedure: 01/12/23 CONSCIOUS SEDATION REPORT BRIEF HISTORY OF PRESENT ILLNESS: The patient is a [82]-year-old [female] who presented to [facility] for an elective outpatient cardioversion due to underlying atrial fibrillation. The patient reports no PO intake since midnight, but is currently therapeutic on anticoagulation. The patient does not have a history of obstructive sleep apnea . The patient reports [no] history of smoking and COPD. The patient denies any recent constitutional symptoms such as fevers, chills, nausea or vomiting. The patient denies previous applicable anesthetic complications. PHYSICAL EXAMINATION: VITAL SIGNS: Reviewed and were acceptable. GENERAL: The patient is a [female ], in no apparent distress, speaking in full sentences. HEENT: Normocephalic, atraumatic. Mucous membranes are moist and pink. Good mouth opening noted. Trachea is midline. Good neck mobility. MP III CHEST: S1, S2 irregularly irregular. No murmurs, rubs or gallops were noted. LUNGS: Clear to auscultation bilaterally without appreciable wheezes, rales or rhonchi. ABDOMEN: Soft, nontender, nondistended. Positive bowel sounds. EXTREMITIES: There is no clubbing, cyanosis or edema. ASA Class: II DESCRIPTION OF PROCEDURE: After confirmation of informed consent, the patient's anesthesia plan was reviewed in detail. [Propofol] was chosen. Risks and benefits were reviewed and the patient agreed to proceed. At 12:12 the patient was given 30 mg of propofol. The patient achieved an appropriate level of sedation and received [1] attempt[s] synchronized cardioversion, at [200 J respectively] by [Dr. Yojana Lucio] at the bedside. This was [successful] in achieving normal sinus rhythm. The patient was monitored until [12:23], at which time the patient reached their baseline mental status and function. The patient tolerated the procedure well. COMPLICATIONS: None ESTIMATED BLOOD LOSS: None RECOMMENDATIONS: Okay to recover in usual fashion.
[2023-02-03 12:23] LABS: International Normalized Ratio 2.4; Prothrombin Time (Protime)PT. 26.6 SECONDS (11.7-14.9)
== END 2023-02-07 23:59 ==
LOC: BIMLAB 11:17
PROVIDERS: Family Provider Internal Medicine; PCP Internal Medicine; Referring Provider Internal Medicine Cardiovascular Disease; Visit Provider Internal Medicine Cardiovascular Disease
DX: I48.19 Other persistent atrial fibrillation (principal); Z79.01 Long term (current) use of anticoagulants
CPT/HCPCS: 36415; 85610

== ENCOUNTER 2023-02-17 10:55 | Outpatient (RCR) | payer MEDICARE, BC, SELFPAY ==
[2023-02-08 00:42] VITALS: BMI 26.6
[2023-02-17 12:48] LABS: International Normalized Ratio 2.1; Prothrombin Time (Protime)PT. 23.8 SECONDS (11.7-14.9)
== END 2023-03-10 23:59 ==
LOC: BIMLAB 10:55
PROVIDERS: Family Provider Internal Medicine; PCP Internal Medicine; Referring Provider Internal Medicine Cardiovascular Disease; Visit Provider Internal Medicine Cardiovascular Disease
DX: I48.19 Other persistent atrial fibrillation (principal); Z79.01 Long term (current) use of anticoagulants
CPT/HCPCS: 36415; 85610

== ENCOUNTER → 2023-02-23 | Outpatient (CLI) | payer MEDICARE, BC, SELFPAY ==
--- OUTSIDE RECORDS SUMMARY | 2023-02-23 10:54 | XMS RPT_ITS | CCD ---
Author Name Unknown Address [facility] [facility] [address] [place] [address] Organization [facility] Care Team Providers Care Block Piler Name Role Phone Yuniel SMITH MD, Marija Unavailable [phone] Celine Marsh MD Primary Care Provider OBDULIA AMAYA Referring Unavailable OBDULIA AMAYA Attending Unavailable CELINE MARSH Primary Care Unavailable Allergies Allergy Classification Reported Allergen(s) Allergy Type Date of Onset Reaction(s) Facility (3 sources) Seasonal allergy; Translations: [SEASONAL ALLERGIES] Propensity to adverse reactions 05-13-2016 Intolerance [facility] Work Phone: Medications Completed/Discontinued Medications Medication Drug Class(es) Dates Sig (Normalized) Sig (Original) Acetaminophen (2 sources) take 1 tablet by dasia th once daily at bedtime ACETAMINOPHEN (TYLENOL ORAL) Take 1 tablet by mouth daily at bedtime. 0 Active Problems Active Problems Problem Classification Problem Date Documented Da te Episodic/Chronic Cancer of breast (4 sources) Infiltrating lobular carcinoma of breast; Translations: [Malignant neoplasm of unspecified site of left female breast] Onset: 04-02-2015 Chronic Disorders of lipid metabolism (2 sources) Pure hypercholesterolemi a; Translations: [Pure hypercholesterolemi a, unspecified] Onset: 07-31-2015 07-31-2015 Chronic Nutritional deficiencies (2 sources) Vitamin D deficiency; Translations: [Vitamin D deficiency, unspecified] Onset: 12-24-2015 07-21-2017 Chronic Past or Other Problems Problem Classification Problem Date Documented Da te Episodic/Chronic Other aftercare (2 sources) Long-term current use of aromatase inhibitor; Translations: [MCC (current) use of aromatase inhibitors] Onset: 12-14-2017 12-14-2017 Episodic Other circulatory disease (2 sources) H/O: atrial fibrillation; Translations: [Personal history of other diseases of the circulatory system] Onset: 07-21-2017 10-22-2019 Episodic Results Test Name Value Interpretation Reference Range Facil ity Vital Signs Date Time Vital Sign Value Performing Clinician Melinda daniels 07-28-2022 11:23-0400 Body height 167.6 cm Obdulia Amaya ULTRASONIC HAND SOLDERER.LINOLEUM MECHANIC Work Phone: [facility] 07-28-2022 11:23-0400 Body temperature 97.39 [degF] [place] Amaya ULTRASONIC HAND SOLDERER.LINOLEUM MECHANIC Work Phone: [facility] 07-28-2022 11:23-0400 Body weight 78.93 kg [place] Amaya ULTRASONIC HAND SOLDERER.LINOLEUM MECHANIC Work Phone: [facility] 07-28-2022 11:23-0400 Diastolic blood pressure 55 mm[Hg] [place] Amaya ULTRASONIC HAND SOLDERER.LINOLEUM MECHANIC Work Phone: [facility] 07-28-2022 11:23-0400 Heart rate 56 /min Obdulia Amaya ULTRASONIC HAND SOLDERER.LINOLEUM MECHANIC Work Phone: [facility] 07-28-2022 11:23-0400 Respiratory rate 18 /min Obdulia Amaya ULTRASONIC HAND SOLDERER.LINOLEUM MECHANIC Work Phone: [facility] 07-28-2022 11:23-0400 SaO2% (BldA) [Mass fraction] 96 % Obdulia Amaya ULTRASONIC HAND SOLDERER.LINOLEUM MECHANIC Work Phone: [facility] 07-28-2022 11:23-0400 Systolic blood pressure 107 mm[Hg] [place] Amaya ULTRASONIC HAND SOLDERER.LINOLEUM MECHANIC Work Phone: [facility] 07-09-2021 10:35-0400 Body temperature 97.39 [degF] [place] Amaya ULTRASONIC HAND SOLDERER.LINOLEUM MECHANIC Work Phone: [facility] 07-09-2021 10:35-0400 Body weight 77.79 kg [place] Amaya ULTRASONIC HAND SOLDERER.LINOLEUM MECHANIC Work Phone: [facility] 07-09-2021 10:35-0400 Diastolic blood pressure 52 mm[Hg] [place] Amaya ULTRASONIC HAND SOLDERER.LINOLEUM MECHANIC Work Phone: [facility] 07-09-2021 10:35-0400 Heart rate 61 /min Obdulia Amaya ULTRASONIC HAND SOLDERER.LINOLEUM MECHANIC Work Phone: [facility] 07-09-2021 10:35-0400 Systolic blood pressure 102 mm[Hg] Obdulia Amaya ULTRASONIC HAND SOLDERER.LINOLEUM MECHANIC Work Phone: [facility] Encounters Encounter Date Encounter Type Care Provider Facility Start: 07-28-2022 End: 07-28-2022 ambulatory OBDULIA AMAYA Facility:[facility] Start: 07-28-2022 End: 07-28-2022 ambulatory Obdulia Amaya ULTRASONIC HAND SOLDERER.LINOLEUM MECHANIC Work Phone: Hematology/Oncology Procedures Date Procedure Procedure Detail Performing Clinician Start: 06-08-2017 Adult depression screening assessment Obdulia Amaya APRN.LINOLEUM MECHANIC Work Phone: Plan of Treatment Date Care Activity Detail Author Start: 02-08-2022 ADVANCE DIRECTIVE DISCUSSION ADVANCE DIRECTIVE DISCUSSION [facility] Start: 02-08-2022 DEPRESSION ASSESSMENT DEPRESSION ASS ESSMENT [facility] Start: 10-09-2021 Influenza vaccination INFLUENZA (Sea son Ended) [facility] Start: 09-27-2021 COVID-19 VACCINE (5 - Booster for Moderna series) COVID-19 VACCINE (5 - Booster for Moderna series) [facility] Start: 07-28-2021 DIABETES SCREEN DIABETES SCREEN [facility] Start: 02-08-2021 ADVANCE DIRECTIVE DISCUSSION ADVANCE DIRECTIVE DISCUSSION [facility] Start: 06-08-2018 Adult depression scr eening assessment DEPRESSION SCREENING [facility] Start: 07-01-2017 PNEUMOCOCCAL: 65+ (3 - PPSV23 or PCV20) PNEUMOCOCCAL: 65+ (3 - PPSV23 or PCV20) [facility] Start: 10-01-2010 Urine microalbumin profile DTAP,TDAP ,TD (1 - Tdap) [facility] Start: 09-05-2010 SHINGRIX VACCINE (2 of 3) FIGUEROA GRIX VACCINE (2 of 3) [facility] Start: 1958 HEPATITIS C SCREENING HEPATITIS C NC SANCHO [facility] Immunizations Immunization Date Immunization Notes Care Provider Fa alex 10-29-2019 influenza, high dose seasonal, preservative-free Obdulia Amaya ULTRASONIC HAND SOLDERER.LINOLEUM MECHANIC Work Phone: [facility] Work Phone: 11-28-2018 influenza, high dose seasonal, preservative-free [place] Amaya ULTRASONIC HAND SOLDERER.LINOLEUM MECHANIC Work Phone: [facility] 11-19-2017 influenza, high dose seasonal, preservative-free [place] Amaya ULTRASONIC HAND SOLDERER.LINOLEUM MECHANIC Work Phone: [facility] 11-16-2016 influenza, high dose seasonal, preservative-free [place] Amaya ULTRASONIC HAND SOLDERER.LINOLEUM MECHANIC Work Phone: [facility] 07-01-2016 pneumococcal conjuga te vaccine, 13 valent [facility] ULTRASONIC HAND SOLDERER.LINOLEUM MECHANIC Work Phone: [facility] 11-27-2015 influenza, seasonal, injectable Obdulia Amaya ULTRASONIC HAND SOLDERER.LINOLEUM MECHANIC Work Phone: [facility] 09-30-2010 tetanus and diphther ia toxoids, not adsorbed, for adult use Obdulia Amaya ULTRASONIC HAND SOLDERER.LINOLEUM MECHANIC Work Phone: [facility] 07-11-2010 zoster vaccine, live [place] C archerylter ULTRASONIC HAND SOLDERER.LINOLEUM MECHANIC Work Phone: [facility] 11-19-2009 influenza virus vacc ine, whole virus [facility] ULTRASONIC HAND SOLDERER.LINOLEUM MECHANIC Work Phone: [facility] 07-01-2009 pneumococcal polysaccharide vaccine, 23 valent [facility] ULTRASONIC HAND SOLDERER.LINOLEUM MECHANIC Work Phone: [facility] 11-02-2008 influenza virus vacc ine, whole virus Obdulia Amaya ULTRASONIC HAND SOLDERER.LINOLEUM MECHANIC Work Phone: [facility] 11-02-2008 pneumococcal conjuga te vaccine, 7 valent [facility] ULTRASONIC HAND SOLDERER.LINOLEUM MECHANIC Work Phone: [facility] 12-07-2006 influenza virus vacc ine, whole virus [place] Amaya ULTRASONIC HAND SOLDERER.LINOLEUM MECHANIC Work Phone: [facility] Payers Date Payer Category Payer Medicare MEDICARE MEDICAR E A AND B [id number] 2007-Present [phone] [place] [address] Medicare [id number] 2007 Medicare MEDICARE MEDICAR E A AND B [id number] 2007-Present [phone] [place] [address] Medicare [id number] 2007 Medicare [id number] 1981 Unknown [employer]BBI[employer] BS FEP PPO [id number] 1979-Present [phone] [id number] [place] [id number] PPO [id number] 1981 Unknown DEBBIE [employer] BC BS FEP PPO [id number] 1981-Present [phone] [id number] [place] [id number] PPO [id number] 1979 Unknown [id number] Social History Date Type Detail Facility Start: 02-14-2015 End: 04-08-2015 Tobacco smoking status NHIS Never smoked tobacco [facility] Start: 02-14-2015 End: 04-08-2015 Tobacco use and exposure Smokeless tobacco non-user [facility] Start: 07-09-2021 End: 07-28-2022 Alcohol intake Current non-drinker of alcohol (finding) [facility] Start: 1940 Sex Assigned At Not on file [facility] Progress note 07-28-2022 Note Date & Type Note Facility 07-28-2022 Note HNO ID: [id number] Author: Obdulia Amaya APRN.LINOLEUM MECHANIC Service: ? Author Type: Nurse Practitioner Type: Progress Notes Filed: 07/28/2022 2:38 PM Note Text: Chief Complaint Patient presents with: Established Patient HPI: Tammi Locke is a 81 year old female who presents here today for follow up breast cancer. Per Dr. Warren's previous note: H/o hyperlipidemia who was found to have an abnormality of the left breast on screening mammogram. She was referred to Dr. Lorenzo and underwent a ultrasound-guided core needle biopsy on 02/16/2015. Pathology demonstrated an invasive lobular carcinoma, grade 1. The specimen was strongly positive for estrogen receptors quantified at greater than 95% and weakly positive for progesterone receptors at 2%. HER-2 was quantified at 0-1+ on immunohistochemistry. Fish testing not performed. Patient underwent a lumpectomy and sentinel lymph [...] section but positive for isolated tumor cells. Had been on Premarin for about 5-10 yrs for jaret-menopausal symptoms. Had not taken in a long time. Oncotype Dx with her and her . Recurrence score 14 (9% risk with tamoxifen alone). Low risk. Radiation treatment:04/18/15 to 05/16/15. Tolerated well. Current therapy:arimidex Began May 2015. No new concerns today. Appetite: Too good. Energy level: Low. Denies fevers or recent illness. Resp:denies cough or sob h/o seasonal allergies Cardiac:denies chest pain/palpitations h/o a.fib GI:denies abd pain, n/v, moving bowels regularly :denies dysuria/hematuria Extrem:denies pain to back/bones Endo:denies hot flashes Neuro:denies symptoms of neuropathy Skin:denies rashes/lesions Heme:occ. bleeding from hemorrhoids, on coumadin The ROS is otherwise negative. Past medical history, appointments, medications, allergies reviewed. No changes. EXAM: BP 107/55 Pulse (!) 56 Temp 36.3 ?C (97.4 ?F) (Tympanic) Resp 18 Ht 167.6 cm (5' 6 ) Wt 78.9 kg (174 lb) SpO2 96% BMI 28.08 kg/m? APPEARANCE Well appearing, alert, in no acute distress, well-hydrated, well nourished. HEART RRR with normal S1 and S2, no murmurs LUNG clear to auscultation BREAST FEMALE no mass/nodule b/l, L lateral scar/radiation changes LYMPH NODES No cervical lymphadenopathy, No supraclavicular lymphadenopathy, and No axillary lymphadenopathy. ABDOMEN bowel sounds normoactive, soft, non-tender EXTREMITIES No edema NEURO Awake, alert and oriented x 3, Normal gait, and No involuntary motions. SKIN Skin color, texture, turgor normal, no suspicious rashes or lesions ASSESSMENT/PLAN: 1. Lobular carcinoma of left breast (HCC) - ICD9: 174.9, ICD10: C50.912 Stage IIA, T2N0(i+), invasive lobular carcinoma of the left breast s/p lumpectomy and sentinel node biopsy. It's ER positive (>95%, strong), SC positive (2%, weak) and Her2/josé antonio 0-1+. - No concerning findings on exam. - Tolerating arimidex well. - Reviewed previous imaging done at [facility]. - Pt. has now completed over 7 years of arimidex. Stop arimidex. - Imaging per surgeon. - Follow up in one year. - Pt. aware to call office with any questions/concerns. The patient indicates understanding of these issues and agrees with the plan. All documentation from previous visit of 07/09/21-Dr. Warren/myself was copied and pasted, documentation has been reviewed and edited as necessary for today's visit. Obdulia Amaya APRN.[facility] History of Present illness Narrative 07-28-2022 Obdulia Amaya APRN.LINOLEUM MECHANIC - 07/28/2022 11:31 AM EDT Note Date & Type Note Facility 07-28-2022 History of Presen t illness Narrative Chief Complaint Patient presents with: Established Patient HPI: Tammi Locke is a 81 year old female who presents here today for follow up breast cancer. Per Dr. Warren's previous note: H/o hyperlipidemia who was found to have an abnormality of the left breast on screening mammogram. She was referred to Dr. Lorenzo and underwent a ultrasound-guided core needle biopsy on 02/16/2015. Pathology demonstrated an invasive lobular carcinoma, grade 1. The specimen was strongly positive for estrogen receptors quantified at greater than 95% and weakly positive for progesterone receptors at 2%. HER-2 was quantified at 0-1+ on immunohistochemistry. Fish testing not performed. Patient underwent a lumpectomy and sentinel lymph [...] section but positive for isolated tumor cells. Had been on Premarin for about 5-10 yrs for jaret-menopausal symptoms. Had not taken in a long time. Oncotype Dx with her and her . Recurrence score 14 (9% risk with tamoxifen alone). Low risk. Radiation treatment:04/18/15 to 05/16/15. Tolerated well. Current therapy:arimidex Began May 2015. No new concerns today. Appetite: Too good. Energy level: Low. Denies fevers or recent illness. Resp:denies cough or sob h/o seasonal allergies Cardiac:denies chest pain/palpitations h/o a.fib GI:denies abd pain, n/v, moving bowels regularly :denies dysuria/hematuria Extrem:denies pain to back/bones Endo:denies hot flashes Neuro:denies symptoms of neuropathy Skin:denies rashes/lesions Heme:occ. bleeding from hemorrhoids, on coumadin The ROS is otherwise negative. Past medical history, appointments, medications, allergies reviewed. No changes. EXAM: BP 107/55 Pulse (!) 56 Temp 36.3 C (97.4 F) (Tympanic) Resp 18 Ht 167.6 cm (5' 6 ) Wt 78.9 kg (174 lb) SpO2 96% BMI 28.08 kg/m APPEARANCE Well appearing, alert, in no acute distress, well-hydrated, well nourished. HEART RRR with normal S1 and S2, no murmurs LUNG clear to auscultation BREAST FEMALE no mass/nodule b/l, L lateral scar/radiation changes LYMPH NODES No cervical lymphadenopathy, No supraclavicular lymphadenopathy, and No axillary lymphadenopathy. ABDOMEN bowel sounds normoactive, soft, non-tender EXTREMITIES No edema NEURO Awake, alert and oriented x 3, Normal gait, and No involuntary motions. SKIN Skin color, texture, turgor normal, no suspicious rashes or lesions ASSESSMENT/PLAN: 1. Lobular carcinoma of left breast (HCC) - ICD9: 174.9, ICD10: C50.912 Stage IIA, T2N0(i+), invasive lobular carcinoma of the left breast s/p lumpectomy and sentinel node biopsy. It's ER positive (>95%, strong), SC positive (2%, weak) and Her2/josé antonio 0-1+. - No concerning findings on exam. - Tolerating arimidex well. - Reviewed previous imaging done at [facility]. - Pt. has now completed over 7 years of arimidex. Stop arimidex. - Imaging per surgeon. - Follow up in one year. - Pt. aware to call office with any questions/concerns. The patient indicates understanding of these issues and agrees with the plan. All documentation from previous visit of 07/09/21-Dr. Warren/myself was copied and pasted, documentation has been reviewed and edited as necessary for today's visit. Obdulia Amaya APRN.CNP documented in this encounter [facility] History of Present illness Narrative 07-09-2021 Obdulia Amaya APRN.CNP - 07/09/2021 10:32 AM EDT Note Date & Type Note Facility 07-09-2021 History of Presen t illness Narrative Chief Complaint Patient presents with: Established Patient HPI: Tammi Locke is a 80 year old female who presents here today for follow up breast cancer. Per Dr. Warren's previous note: H/o hyperlipidemia who was found to have an abnormality of the left breast on screening mammogram. She was referred to Dr. Lorenzo and underwent a ultrasound-guided core needle biopsy on 02/16/2015. Pathology demonstrated an invasive lobular carcinoma, grade 1. The specimen was strongly positive for estrogen receptors quantified at greater than 95% and weakly positive for progesterone receptors at 2%. HER-2 was quantified at 0-1+ on immunohistochemistry. Fish testing not performed. Patient underwent a lumpectomy and sentinel lymph [...] section but positive for isolated tumor cells. Had been on Premarin for about 5-10 yrs for jaret-menopausal symptoms. Had not taken in a long time. Oncotype Dx with her and her . Recurrence score 14 (9% risk with tamoxifen alone). Low risk. Radiation treatment:04/18/15 to 05/16/15. Tolerated well. Current therapy:arimidex Began May 2015. No new concerns today. Appetite: Too good. Energy level: I'm getting B12 injections. My energy was lagging some. Denies fevers or recent illness. Resp:denies cough or sob h/o seasonal allergies Cardiac:denies chest pain/palpitations h/o a.fib GI:denies abd pain, n/v, moving bowels regularly :denies dysuria/hematuria Extrem:denies pain to back/bones Endo:denies hot flashes Neuro:denies symptoms of neuropathy Skin:denies rashes/lesions Heme:occ. bleeding from hemorrhoids, on coumadin The ROS is otherwise negative. Past medical history, appointments, medications, allergies reviewed. No changes. EXAM: BP 102/52 Pulse 61 Temp 36.3 C (97.4 F) (Temporal) Wt 77.8 kg (171 lb 8 oz) BMI 27.47 kg/m APPEARANCE Well appearing, alert, in no acute distress, well-hydrated, well nourished. HEART RRR with normal S1 and S2, no murmurs LUNG clear to auscultation BREAST FEMALE R no mass/nodule, L outer multiple scars/radiation changes-no new mass/nodule LYMPH NODES No cervical lymphadenopathy, No supraclavicular lymphadenopathy and No axillary lymphadenopathy. ABDOMEN bowel sounds normoactive, soft, non-tender, non-distended, without organomegaly or palpable [...] node biopsy. It's ER positive (>95%, strong), SC positive (2%, weak) and Her2/josé antonio 0-1+. - No concerning findings on exam. - Tolerating arimidex well. - Reviewed previous imaging done at [facility]. - Continue arimidex. Rx done. - Imaging-MRI breast per Dr. Feliciano. Pt. will call for appts. - Follow up in one year (pending MRI breast). - Pt. aware to call office with any questions/concerns. The patient indicates understanding of these issues and agrees with the plan. All documentation from previous visit of 09/30/20-Dr. Warren/myself was copied and pasted, documentation has been reviewed and edited as necessary for today's visit. Obdulia Amaya APRN.CNP documented in this encounter [facility] History of Past illness Narrative 07-31-2015 Note Date & Type Note Facility documented as of this encounter (statuses as of 07/09/2021) [facility] History of Past illness Narrative 07-31-2015 Note Date & Type Note Facility documented as of this encounter (statuses as of 07/29/2022) [facility] Evaluation note Note Date & Type Note Facility documented in this encounter [facility] Evaluation note Note Date & Type Note Facility documented in this encounter [facility] Advance Directives No Advanced Directives Records FoundDocuments on File Type Date Recorded Patient Swat Team Member Expl anation Advance Directive(s) 08/01/2018 2:48 PM Advance Directive(s) 06/16/2016 11:00 AM Advance Directive(s) 06/10/2016 2:38 PM Documents on File Type Date Recorded Patient Swat Team Member Expl anation Advance Directive(s) 08/01/2018 2:48 PM Summary Purpose Family History No Family History Records Found Additional Source Comments Source Comments (unrecognize d section and content) In the event this informatio n is protected by the Federal Confidentiality of Alcohol and Drug Abuse Patient Records regulations: The Federal rules restrict any use of the information to criminally investigate or prosecute any alcohol or drug abuse patient.[facility] the event this information is protected by the Federal Confidentiality of Alcohol and Drug Abuse Patient Records regulations: The Federal rules restrict any use of the information to criminally investigate or prosecute any alcohol or drug abuse patient.[facility] Reason for Visit (unrecogniz ed section and content) Care Teams (unrecognized sec tion and content) Block Piler Relationship Specialty Start Date End Date Celine Marsh MD [address] [place], [place] [address] PCP - General Internal Medicine 12/09/15 Marija Brice MD, [address], [place] [address] Physician Radiation Oncology 04/04/15 INFORMATION SOURCE (unrecogn ized section and content) FOR RECORDS PERTAINING TO PATIENTS WHO ARE OR HAVE BEEN ENROLLED IN A CHEMICAL DEPENDENCY/SUBSTANCEABUSE PROGRAM, SOME INFORMATION MAY BE OMITTED. This clinical summary was aggregated from multiple sources. Caution should be exercised in using it in the provision of clinical care. This summary normalizes information from multiple sources, and as a consequence, information in this document may materially change the coding, format and clinical context of patient data. In addition, data may be omitted in some cases. CLINICAL DECISIONS SHOULD BE BASED ON THE PRIMARY CLINICAL RECORDS. [facility]. provides no warranty or guarantee of the accuracy or completeness of information in this document.
--- NOTE | 2023-02-25 10:13 | PFT ---
INTRODUCTION: The patient is an 82-year-old female who presents for pulmonary function studies secondary to a diagnosis of amiodarone therapy. Respiratory therapy reported good patient effort. Bronchodilators were used during testing. INTERPRETATION: Forced expiration spirometry demonstrates no evidence of a large airways obstructive ventilatory defect. There was no significant response to aerosolized bronchodilators. Body plethysmography was performed and revealed a decreased TLC to 4.2 L, 77% of predicted, indicative of a mild restrictive ventilatory defect. Diffusing capacity by single breath CO was reduced to 57% of predicted. 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
== END | disposition home or self-care (01) ==
LOC: PSN 10:15
PROVIDERS: PCP Internal Medicine; Referring Provider Physician Assistant Medical; Visit Provider Physician Assistant Medical
DX: I48.0 Paroxysmal atrial fibrillation (principal); Z79.899 Other long term (current) drug therapy
CPT/HCPCS: 94060; 94726; 94729

== ENCOUNTER → 2023-03-03 | Outpatient (CLI) | payer MEDICARE, BC, SELFPAY ==
--- OUTSIDE RECORDS SUMMARY | 2023-03-03 08:33 | XMS RPT_ITS | CCD ---
Author Name Unknown Address [facility] [facility] [address] [place] [address] Organization [facility] Care Team Providers Care Chemical Treatment Operator Name Role Phone Yuniel SMITH MD, Marija Unavailable [phone] Celine Marsh MD Primary Care Provider OBDULIA AMAYA Referring Unavailable OBDULIA AMAYA Attending Unavailable CELINE MARSH Primary Care Unavailable Allergies Allergy Classification Reported Allergen(s) Allergy Type Date of Onset Reaction(s) Facility (3 sources) Seasonal allergy; Translations: [SEASONAL ALLERGIES] Propensity to adverse reactions 05-13-2016 Intolerance [facility] Work Phone: Medications Completed/Discontinued Medications Medication Drug [...] Long-term current use of aromatase inhibitor; Translations: [residential (current) use of aromatase inhibitors] Onset: 12-14-2017 12-14-2017 Episodic Other circulatory disease (2 sources) H/O: atrial fibrillation; Translations: [Personal history of other diseases of the circulatory system] Onset: 07-21-2017 10-22-2019 Episodic Results Test Name Value Interpretation Reference Range Facil ity Vital Signs Date Time Vital Sign Value Performing Clinician Melinda daniels 07-28-2022 11:23-0400 Body height 167.6 cm Obdulia Amaya GRIEVANCE COORDINATOR.CAREER LAW CLERK Work Phone: [facility] 07-28-2022 11:23-0400 Body temperature 97.39 [degF] [place] Amaya GRIEVANCE COORDINATOR.CAREER LAW CLERK Work Phone: [facility] 07-28-2022 11:23-0400 Body weight 78.93 kg [place] Amaya GRIEVANCE COORDINATOR.CAREER LAW CLERK Work Phone: [facility] 07-28-2022 11:23-0400 Diastolic blood pressure 55 mm[Hg] [place] Amaya GRIEVANCE COORDINATOR.CAREER LAW CLERK Work Phone: [facility] 07-28-2022 11:23-0400 Heart rate 56 /min Obdulia Amaya GRIEVANCE COORDINATOR.CAREER LAW CLERK Work Phone: [facility] 07-28-2022 11:23-0400 Respiratory rate 18 /min Obdulia Amaya GRIEVANCE COORDINATOR.CAREER LAW CLERK Work Phone: [facility] 07-28-2022 11:23-0400 SaO2% (BldA) [Mass fraction] 96 % Obdulia Amaya GRIEVANCE COORDINATOR.CAREER LAW CLERK Work Phone: [facility] 07-28-2022 11:23-0400 Systolic blood pressure 107 mm[Hg] [place] Amaya GRIEVANCE COORDINATOR.CAREER LAW CLERK Work Phone: [facility] 07-09-2021 10:35-0400 Body temperature 97.39 [degF] [place] Amaya GRIEVANCE COORDINATOR.CAREER LAW CLERK Work Phone: [facility] 07-09-2021 10:35-0400 Body weight 77.79 kg [place] Amaya GRIEVANCE COORDINATOR.CAREER LAW CLERK Work Phone: [facility] 07-09-2021 10:35-0400 Diastolic blood pressure 52 mm[Hg] [place] Amaya GRIEVANCE COORDINATOR.CAREER LAW CLERK Work Phone: [facility] 07-09-2021 10:35-0400 Heart rate 61 /min Obdulia Amaya GRIEVANCE COORDINATOR.CAREER LAW CLERK Work Phone: [facility] 07-09-2021 10:35-0400 Systolic blood pressure 102 mm[Hg] Obdulia Amaya GRIEVANCE COORDINATOR.CAREER LAW CLERK Work Phone: [facility] Encounters Encounter Date Encounter Type Care Provider Facility Start: 07-28-2022 End: 07-28-2022 ambulatory OBDULIA AMAYA Facility:[facility] Start: 07-28-2022 End: 07-28-2022 ambulatory Obdulia Amaya GRIEVANCE COORDINATOR.CAREER LAW CLERK Work Phone: Hematology/Oncology Procedures Date Procedure Procedure Detail Performing Clinician Start: 06-08-2017 Adult depression screening assessment Obdulia Amaya APRN.CAREER LAW CLERK Work Phone: Plan of Treatment Date Care Activity Detail Author Start: 02-08-2022 ADVANCE DIRECTIVE DISCUSSION ADVANCE DIRECTIVE DISCUSSION [facility] Start: 02-08-2022 DEPRESSION ASSESSMENT DEPRESSION ASS ESSMENT [facility] Start: 10-09-2021 Influenza vaccination INFLUENZA (Sea son Ended) [facility] Start: 09-27-2021 COVID-19 VACCINE (5 - Booster for Moderna series) COVID-19 VACCINE (5 - Booster for Moderna series) [facility] Start: 07-28-2021 DIABETES SCREEN DIABETES SCREEN [facility] Start: 02-08-2021 ADVANCE DIRECTIVE DISCUSSION ADVANCE DIRECTIVE DISCUSSION [facility] Start: 06-08-2018 Adult depression scr eening assessment DEPRESSION SCREENING [facility] Start: 07-01-2017 PNEUMOCOCCAL: 65+ (3 - PPSV23 or PCV20) PNEUMOCOCCAL: 65+ (3 - PPSV23 or PCV20) [facility] Start: 10-01-2010 Urine microalbumin profile DTAP,TDAP ,TD (1 - Tdap) [facility] Start: 09-05-2010 SHINGRIX VACCINE (2 of 3) FIGUEROA GRIX VACCINE (2 of 3) [facility] Start: 1958 HEPATITIS C SCREENING HEPATITIS C ID [facility] Immunizations Immunization Date Immunization Notes Care Provider Fa alex 10-29-2019 influenza, high dose seasonal, preservative-free Obdulia Amaya GRIEVANCE COORDINATOR.CAREER LAW CLERK Work Phone: [facility] Work Phone: 11-28-2018 influenza, high dose seasonal, preservative-free [place] Amaya GRIEVANCE COORDINATOR.CAREER LAW CLERK Work Phone: [facility] 11-19-2017 influenza, high dose seasonal, preservative-free [place] Amaya GRIEVANCE COORDINATOR.CAREER LAW CLERK Work Phone: [facility] 11-16-2016 influenza, high dose seasonal, preservative-free [place] Amaya GRIEVANCE COORDINATOR.CAREER LAW CLERK Work Phone: [facility] 07-01-2016 pneumococcal conjuga te vaccine, 13 valent [facility] GRIEVANCE COORDINATOR.CAREER LAW CLERK Work Phone: [facility] 11-27-2015 influenza, seasonal, injectable Obdulia Amaya GRIEVANCE COORDINATOR.CAREER LAW CLERK Work Phone: [facility] 09-30-2010 tetanus and diphther ia toxoids, not adsorbed, for adult use Obdulia Amaya GRIEVANCE COORDINATOR.CAREER LAW CLERK Work Phone: [facility] 07-11-2010 zoster vaccine, live [place] [facility] GRIEVANCE COORDINATOR.CAREER LAW CLERK Work Phone: [facility] 11-19-2009 influenza virus vacc ine, whole virus [facility] GRIEVANCE COORDINATOR.CAREER LAW CLERK Work Phone: [facility] 07-01-2009 pneumococcal polysaccharide vaccine, 23 valent [facility] GRIEVANCE COORDINATOR.CAREER LAW CLERK Work Phone: [facility] 11-02-2008 influenza virus vacc ine, whole virus Obdulia Amaya GRIEVANCE COORDINATOR.CAREER LAW CLERK Work Phone: [facility] 11-02-2008 pneumococcal conjuga te vaccine, 7 valent [facility] GRIEVANCE COORDINATOR.CAREER LAW CLERK Work Phone: [facility] 12-07-2006 influenza virus vacc ine, whole virus [place] Amaya GRIEVANCE COORDINATOR.CAREER LAW CLERK Work Phone: [facility] Payers Date Payer Category Payer Medicare MEDICARE MEDICAR E A AND B [id number] 2007-Present [phone] [place] [address] Medicare [id number] 2007 Medicare MEDICARE MEDICAR E A AND B [id number] 2007-Present [phone] [place] [address] Medicare [id number] 2007 Medicare [id number] 1981 Unknown DEBBIE LEWIS BC BS FEP PPO [id number] 1981-Present [phone] [id number] [place] [address] PPO [id number] 1981 Unknown DEBBIE LEWIS BC BS FEP PPO [id number] 1981-Present [phone] [id number] [place] [address] PPO [id number] 1979 Unknown [id number] Social History Date Type Detail Facility Start: 02-14-2015 End: 04-08-2015 Tobacco smoking status NHIS Never smoked tobacco [facility] Start: 02-14-2015 End: 04-08-2015 Tobacco use and exposure Smokeless tobacco non-user [facility] Start: 07-09-2021 End: 07-28-2022 Alcohol intake Current non-drinker of alcohol (finding) [facility] Start: 1940 Sex Assigned At Not on file [facility] Progress note 07-28-2022 Note Date & Type Note Facility 07-28-2022 Note HNO ID: [id number] Author: Obdulia Amaya APRN.CAREER LAW CLERK Service: ? Author Type: Nurse Practitioner Type: [...] well. - Reviewed previous imaging done at [facility]. - Pt. has now completed over 7 [...] necessary for today's visit. Obdulia Amaya APRN.[facility] History of Present illness Narrative 07-28-2022 Obdulia Amaya APRN.CAREER LAW CLERK - 07/28/2022 11:31 AM EDT Note Date [...] well. - Reviewed previous imaging done at [facility]. - Pt. has now completed over 7 [...] Obdulia Amaya APRN.CNP documented in this encounter [facility] History of Present illness Narrative 07-09-2021 Obdulia [...] well. - Reviewed previous imaging done at [facility]. - Continue arimidex. Rx done. - Imaging-MRI [...] Obdulia Amaya APRN.CNP documented in this encounter [facility] History of Past illness Narrative 07-31-2015 Note Date & Type Note Facility documented as of this encounter (statuses as of 07/09/2021) [facility] History of Past illness Narrative 07-31-2015 Note Date & Type Note Facility documented as of this encounter (statuses as of 07/29/2022) [facility] Evaluation note Note Date & Type Note Facility documented in this encounter [facility] Evaluation note Note Date & Type Note Facility documented in this encounter [facility] Advance Directives No Advanced Directives Records FoundDocuments on File Type Date Recorded Patient Campaign Fundraiser Expl anation Advance Directive(s) 08/01/2018 2:48 PM Advance Directive(s) 06/16/2016 11:00 AM Advance Directive(s) 06/10/2016 2:38 PM Documents on File Type Date Recorded Patient Campaign Fundraiser Expl anation Advance Directive(s) 08/01/2018 2:48 PM [...] or prosecute any alcohol or drug abuse patient.[facility] the event this information is protected by the Federal Confidentiality of Alcohol and Drug Abuse Patient Records regulations: The Federal rules restrict any use of the information to criminally investigate or prosecute any alcohol or drug abuse patient.[facility] Reason for Visit (unrecogniz ed section and content) Care Teams (unrecognized sec tion and content) Chemical Treatment Operator Relationship Specialty Start Date End Date Celine Marsh MD [address] [place], [place] [id number] PCP - General Internal Medicine 12/09/15 Marija Brice MD, [address] [place], [place] [id number] Physician Radiation Oncology 04/04/15 INFORMATION SOURCE (unrecogn [...] BE BASED ON THE PRIMARY CLINICAL RECORDS. [facility]. provides no warranty or guarantee of the accuracy or completeness of information in this document.
[2023-03-03 13:59] LABS: Cholesterol 211 mg/dL (200); High Density Lipoprotein 59 mg/dL; Triglycerides 288 mg/dL; Very Low Density Lipoprotein 58 mg/dL (5-40)
== END | disposition home or self-care (01) ==
LOC: BIMLAB 08:20
PROVIDERS: PCP Internal Medicine; Referring Provider Internal Medicine; Visit Provider Internal Medicine
DX: E78.5 Hyperlipidemia, unspecified (principal)
CPT/HCPCS: 36415; 80061

== ENCOUNTER 2023-03-11 10:30 | Outpatient (RCR) | payer MEDICARE, BC, SELFPAY ==
[2023-03-11 00:27] VITALS: BMI 26.6
[2023-03-11 11:39] LABS: International Normalized Ratio 2.5; Prothrombin Time (Protime)PT. 27.6 SECONDS (11.7-14.9)
== END 2023-04-08 18:00 | disposition home or self-care (01) ==
LOC: LAB 10:30
PROVIDERS: Family Provider Internal Medicine; PCP Internal Medicine; Referring Provider Internal Medicine Cardiovascular Disease; Visit Provider Internal Medicine Cardiovascular Disease
DX: I48.19 Other persistent atrial fibrillation (principal); Z79.01 Long term (current) use of anticoagulants
CPT/HCPCS: 36415; 85610

== ENCOUNTER 2023-05-04 14:48 | Outpatient (RCR) | payer MEDICARE, BC, SELFPAY ==
[2023-04-08 23:06] VITALS: BMI 26.6
[2023-04-09 15:46] LABS: International Normalized Ratio 2.7; Prothrombin Time (Protime)PT. 28.4 SECONDS (11.7-14.9)
[2023-05-04 15:23] LABS: Hematocrit 33.2 % (37-47); Hemoglobin 10.8 g/dL (12.0-15.0); Mean Corp Hgb Conc 32.5 g/dL (32-36); Mean Corpuscular Hgb 33.3 pg (27.0-32.0); Mean Corpuscular Volume 102.5 fL (81-99); Mean Platelet Vol. 9.6 fl (6.2-12.0); Platelet Count 352 K/mm3 (150-450); RBC Distribution Width CV 13.3 % (11.6-14.6); Red Blood Count 3.24 M/mm3 (4.2-5.4)
[2023-05-04 15:40] LABS: International Normalized Ratio 3.1; Prothrombin Time (Protime)PT. 31.6 SECONDS (11.7-14.9)
[2023-05-04 16:25] LABS: ALB/GLOB Ratio 0.9 RATIO (0.9-2.4); AST(SGOT) 26 U/L (15-37); Alanine Aminotransfer ALT/SGPT 28 U/L (13-56); Albumin, Serum 3.4 g/dL (3.2-5.0); Alkaline Phosphatase 106 U/L (45-117); Anion Gap 8 (5-15); BUN 29 mg/dL (7-18); BUN/Creat Ratio 20.3 RATIO (10-20); Calcium,Total 9.3 mg/dL (8.5-10.1); Chloride 107 mmol/L (98-107); Creatinine, Serum 1.43 mg/dL (0.55-1.02); EST Glomerular Filtration Rate 38 mL/min (>60); Est Glom Filt Rate - Afr Amer 45 mL/min (>60); Globulin 3.7 g/dL (2.2-4.2); Glucose 132 mg/dL (74-106); Magnesium 1.9 mg/dL (1.6-2.6); Potassium 3.6 mmol/L (3.5-5.1); Protein, Total 7.1 g/dL (6.4-8.2); Sodium Level 142 mmol/L (136-145); Thyroid Stim Hormone (TSH) 5.66 uIU/mL (0.358-3.74)
== END 2023-05-09 23:59 ==
LOC: BIMLAB 14:48
PROVIDERS: Physician Assistant Medical; Family Provider Internal Medicine; PCP Internal Medicine; Referring Provider Internal Medicine Cardiovascular Disease; Visit Provider Internal Medicine Cardiovascular Disease
DX: I48.19 Other persistent atrial fibrillation (principal); Z79.01 Long term (current) use of anticoagulants
CPT/HCPCS: 36415; 80053; 83735; 84443; 85027; 85610

== ENCOUNTER → 2023-05-04 | Outpatient (CLI) | payer MEDICARE, BC, SELFPAY | END | disposition home or self-care (01) | LOC: LAB 14:44 | PROVIDERS: PCP Internal Medicine; Referring Provider Physician Assistant Medical; Visit Provider Physician Assistant Medical | DX: Z00.00 Encounter for general adult medical examination without abnormal findings (principal) ==

== ENCOUNTER → 2023-05-10 | Outpatient (CLI) | payer MEDICARE, BC, SELFPAY | END | disposition home or self-care (01) | LOC: PSN 07:45 | PROVIDERS: PCP Internal Medicine; Referring Provider Physician Assistant Medical; Visit Provider Physician Assistant Medical | DX: I48.91 Unspecified atrial fibrillation (principal); R53.83 Other fatigue; Z79.899 Other long term (current) drug therapy | CPT/HCPCS: 93225; 93226 ==

== ENCOUNTER 2023-06-03 15:09 | Outpatient (RCR) | payer MEDICARE, BC, SELFPAY ==
[2023-05-10 00:10] VITALS: BMI 26.6
[2023-05-18 10:22] LABS: Hematocrit 34.8 % (37-47); Hemoglobin 11.3 g/dL (12.0-15.0)
[2023-05-18 10:33] LABS: International Normalized Ratio 3.1; Prothrombin Time (Protime)PT. 32.1 SECONDS (11.7-14.9)
[2023-06-03 17:22] LABS: Prothrombin Time (Protime)PT. 30.9 SECONDS (11.7-14.9)
== END 2023-06-08 23:59 ==
LOC: BIMLAB 15:09
PROVIDERS: Family Provider Internal Medicine; PCP Internal Medicine; Referring Provider Internal Medicine Cardiovascular Disease; Visit Provider Internal Medicine Cardiovascular Disease
DX: I48.19 Other persistent atrial fibrillation (principal); Z79.01 Long term (current) use of anticoagulants; D64.9 Anemia, unspecified
CPT/HCPCS: 36415; 85014; 85018; 85610

== ENCOUNTER → 2023-06-21 | Outpatient (CLI) | payer MEDICARE, BC, SELFPAY ==
[2023-06-21 15:22] LABS: Mucous, Urine 0 SEEN /hpf (<or=2+); Squamous Epithelial Cells - UA 0 SEEN /hpf (5-10)
[2023-06-21 16:52] LABS: Color, Urine Yellow (Yellow); Glucose, Dipstick Normal (Normal); Ketone-Dipstick Negative (Negative); Leukocyte Esterase-Dipstick 500 /ul (Negative); Nitrite-Dipstick Negative (Negative); Occult Blood-Urine 250 /ul (Negative); Protein-Dipstick 30 mg/dl (Negative); Specific Gravity, Urine 1.015 (1.002-1.030); Urine Bilirubin Dipstick Negative (Negative); Urine Clarity Cloudy (Clear); Urine Urobilinogen Normal (Normal)
[2023-06-21 17:02] LABS: ALB/GLOB Ratio 0.9 RATIO (0.9-2.4); AST(SGOT) 28 U/L (15-37); Alanine Aminotransfer ALT/SGPT 29 U/L (13-56); Albumin, Serum 3.6 g/dL (3.2-5.0); Alkaline Phosphatase 109 U/L (45-117); Anion Gap 5 (5-15); BUN 37 mg/dL (7-18); BUN/Creat Ratio 23.7 RATIO (10-20); Calcium,Total 9.7 mg/dL (8.5-10.1); Chloride 104 mmol/L (98-107); Creatinine, Serum 1.56 mg/dL (0.55-1.02); EST Glomerular Filtration Rate 34 mL/min (>60); Est Glom Filt Rate - Afr Amer 41 mL/min (>60); Globulin 3.9 g/dL (2.2-4.2); Glucose 126 mg/dL (74-106); Protein, Total 7.5 g/dL (6.4-8.2); Sodium Level 140 mmol/L (136-145); T4 Free Direct 0.71 ng/dL (0.76-1.46); Thyroid Stim Hormone (TSH) 9.02 uIU/mL (0.358-3.74)
[2023-06-21 17:04] LABS: Vitamin D,25 Hydroxy 87.4 ng/mL
[2023-06-21 17:45] LABS: White Blood Cells 10-25 SEEN /hpf (0-5)
[2023-06-21 17:46] LABS: Amorphous Sediment 2+; Bacteria 4+ /hpf (None Seen); Red Blood Cells-Urine 5-10 SEEN /hpf (0-5); Triple Phosphate Crystals Ur 1+ /hpf (<or=1+)
== END | disposition home or self-care (01) ==
LOC: BIMLAB 15:21
PROVIDERS: PCP Internal Medicine; Visit Provider Internal Medicine
DX: R35.0 Frequency of micturition (principal); E78.5 Hyperlipidemia, unspecified; I10 Essential (primary) hypertension; M85.80 Other specified disorders of bone density and structure, unspecified site; N32.81 Overactive bladder
CPT/HCPCS: 36415; 80053; 81001; 82306; 84439; 84443; 87077; 87086; 87088; 87186

== ENCOUNTER 2023-07-07 13:53 | Outpatient (RCR) | payer MEDICARE, BC, SELFPAY ==
[2023-06-09 00:12] VITALS: BMI 26.6
[2023-07-07 15:36] LABS: Prothrombin Time (Protime)PT. 22.4 SECONDS (11.7-14.9)
== END 2023-07-09 23:59 ==
LOC: BIMLAB 13:53
PROVIDERS: Family Provider Internal Medicine; PCP Internal Medicine; Referring Provider Internal Medicine Cardiovascular Disease; Visit Provider Internal Medicine Cardiovascular Disease
DX: I48.19 Other persistent atrial fibrillation (principal); Z79.01 Long term (current) use of anticoagulants
CPT/HCPCS: 36415; 85610

== ENCOUNTER → 2023-07-29 | Outpatient (CLI) | payer MEDICARE, BC, SELFPAY ==
[2023-07-29 15:56] LABS: Thyroid Stim Hormone (TSH) 7.45 uIU/mL (0.358-3.74)
== END | disposition home or self-care (01) ==
LOC: BIMLAB 12:11
PROVIDERS: PCP Internal Medicine; Referring Provider Internal Medicine; Visit Provider Internal Medicine
DX: E03.9 Hypothyroidism, unspecified (principal)
CPT/HCPCS: 36415; 84443

== ENCOUNTER → 2023-07-30 | Outpatient (CLI) | payer MEDICARE, BC, SELFPAY ==
[2023-07-30 15:22] LABS: International Normalized Ratio 2.7; Prothrombin Time (Protime)PT. 28.7 SECONDS (11.7-14.9)
== END | disposition home or self-care (01) ==
LOC: BIMLAB 13:40
PROVIDERS: PCP Internal Medicine; Referring Provider Internal Medicine; Visit Provider Internal Medicine
DX: I48.91 Unspecified atrial fibrillation (principal); Z79.01 Long term (current) use of anticoagulants
CPT/HCPCS: 36415; 85610

== ENCOUNTER 2023-09-01 15:32 | Outpatient (RCR) | payer MEDICARE, BC, SELFPAY ==
[2023-07-10 00:27] VITALS: BMI 26.6
[2023-09-01 16:49] LABS: International Normalized Ratio 3.1; Prothrombin Time (Protime)PT. 31.7 SECONDS (11.7-14.9)
== END 2023-09-08 23:59 ==
LOC: BIMLAB 15:32
PROVIDERS: Family Provider Internal Medicine; PCP Internal Medicine; Referring Provider Internal Medicine Cardiovascular Disease; Visit Provider Internal Medicine Cardiovascular Disease
DX: Z79.01 Long term (current) use of anticoagulants; I48.91 Unspecified atrial fibrillation
CPT/HCPCS: 36415; 85610

== ENCOUNTER → 2023-09-14 | Outpatient (CLI) | payer MEDICARE, BC, SELFPAY ==
[2023-09-14 14:31] LABS: International Normalized Ratio 2.1; Prothrombin Time (Protime)PT. 23.6 SECONDS (11.7-14.9)
[2023-09-14 15:00] LABS: Thyroid Stim Hormone (TSH) 5.64 uIU/mL (0.358-3.74)
== END | disposition home or self-care (01) ==
LOC: LAB 13:17
PROVIDERS: Internal Medicine Cardiovascular Disease; PCP Internal Medicine; Referring Provider Internal Medicine; Visit Provider Internal Medicine
DX: I48.91 Unspecified atrial fibrillation (principal); E03.9 Hypothyroidism, unspecified; Z79.01 Long term (current) use of anticoagulants
CPT/HCPCS: 36415; 84443; 85610

== ENCOUNTER 2023-11-01 15:47 | Outpatient (RCR) | payer MEDICARE, BC, SELFPAY ==
[2023-09-09 00:29] VITALS: BMI 26.6
[2023-10-14 12:13] LABS: Absolute Lymphocyte Count 1.54 X10^3/uL (0.83-4.51); Absolute Neutrophil Count 4.8 X10^3/uL (2.0-7.7); Basophil# 0.07 X10^3/uL; Basophil% 0.9 % (0-1); Eosinophil# 0.42 X10^3/uL; Eosinophils% 5.6 % (0-5); Hematocrit 39.7 % (37-47); Hemoglobin 12.7 g/dL (12.0-15.0); Lymphocyte # 1.54 X10^3/ul (0.83-4.51); Lymphocyte % 20.4 % (19-41); Mean Corpuscular Hgb 31.6 pg (27.0-32.0); Mean Corpuscular Volume 98.8 fL (81-99); Mean Platelet Vol. 9.9 fl (6.2-12.0); Monocyte# 0.69 X10^3/uL; Monocyte% 9.2 % (0-10); NRBC Flagged by Analyzer 0 % (0-5); Neutrophil # 4.81 X10^3/uL (2.7-7.7); Neutrophil % 63.8 % (47-70); Platelet Count 271 K/mm3 (150-450); RBC Distribution Width SD 50.8 fl (35.1-43.9); Red Blood Count 4.02 M/mm3 (4.2-5.4); White Blood Count 7.5 K/mm3 (4.4-11.0)
[2023-10-14 12:23] LABS: International Normalized Ratio 3.1; Prothrombin Time (Protime)PT. 32.1 SECONDS (11.7-14.9)
[2023-10-14 12:35] LABS: AST(SGOT) 32 U/L (15-37); Alanine Aminotransfer ALT/SGPT 32 U/L (13-56); Albumin, Serum 3.8 g/dL (3.2-5.0); Alkaline Phosphatase 102 U/L (45-117); Anion Gap 4 (5-15); BUN 23 mg/dL (7-18); BUN/Creat Ratio 17.3 RATIO (10-20); Calcium,Total 9.5 mg/dL (8.5-10.1); Chloride 103 mmol/L (98-107); Creatinine, Serum 1.33 mg/dL (0.55-1.02); EST Glomerular Filtration Rate 41 mL/min (>60); Est Glom Filt Rate - Afr Amer 49 mL/min (>60); Glucose 71 mg/dL (74-106); Potassium 3.8 mmol/L (3.5-5.1); Protein, Total 7.8 g/dL (6.4-8.2); Sodium Level 139 mmol/L (136-145)
[2023-11-01 16:34] LABS: International Normalized Ratio 2.5; Prothrombin Time (Protime)PT. 26.9 SECONDS (11.7-14.9)
== END 2023-11-01 18:00 | disposition home or self-care (01) ==
LOC: LAB 15:47
PROVIDERS: Family Provider Internal Medicine; PCP Internal Medicine; Referring Provider Internal Medicine Cardiovascular Disease; Visit Provider Internal Medicine Cardiovascular Disease
DX: Z79.01 Long term (current) use of anticoagulants; I48.91 Unspecified atrial fibrillation; E78.5 Hyperlipidemia, unspecified
CPT/HCPCS: 36415; 80053; 85025; 85610

== ENCOUNTER 2023-12-02 12:16 | Outpatient (RCR) | payer MEDICARE, BC, SELFPAY ==
[2023-11-09 04:10] VITALS: BMI 26.6
[2023-12-02 13:12] LABS: International Normalized Ratio 3.5; Prothrombin Time (Protime)PT. 35.2 SECONDS (11.7-14.9)
== END 2023-12-02 18:00 | disposition home or self-care (01) ==
LOC: LAB 12:16
PROVIDERS: Family Provider Internal Medicine; PCP Internal Medicine; Referring Provider Internal Medicine Cardiovascular Disease; Visit Provider Internal Medicine Cardiovascular Disease
DX: I48.19 Other persistent atrial fibrillation (principal); Z79.01 Long term (current) use of anticoagulants
CPT/HCPCS: 36415; 85610

== ENCOUNTER → 2023-12-02 | Outpatient (CLI) | payer MEDICARE, BC, SELFPAY | END | disposition home or self-care (01) | LOC: PSN 11:40 | PROVIDERS: PCP Internal Medicine; Referring Provider Physician Assistant Medical; Visit Provider Physician Assistant Medical | DX: R00.1 Bradycardia, unspecified (principal); I48.91 Unspecified atrial fibrillation; Z79.899 Other long term (current) drug therapy | CPT/HCPCS: 93225; 93226 ==

== ENCOUNTER → 2023-12-07 | Outpatient (CLI) | payer MEDICARE, BC, SELFPAY ==
--- NOTE | 2023-12-07 12:00 | BI_ITS ---
MAMMOGRAPHY - BILATERAL SCREENING REASON FOR EXAM: Female, 82 years old. Routine annual screening examination. PERTINENT HISTORY: Personal history of breast cancer. Prior left lumpectomy with radiation treatment. Daughter with breast cancer. TECHNIQUE: Digital bilateral breast nnamdi (3D mammographic acquisition) in the CC and MLO projections. 2-D mediolateral oblique (MLO) and craniocaudad (CC) views of both breasts were obtained. CAD: Full Field Digital Mammography with Computer Added Detection was performed. COMPARISON: Comparison is made with prior study dated December 01, 2022. FINDINGS: Breast Composition: The breasts are almost entirely fatty. There are no dominant masses or suspicious calcifications. The patient is status post lumpectomy in the upper outer quadrant of the left breast with resultant postoperative dystrophic calcifications and scarring with deformity of the left breast. A tissue clip marker is seen in the retroareolar region of the left breast. Stable bilateral secretory calcifications. No other significant abnormalities are identified. There has been no significant change since the prior study. BI/SCRN MAMM (CAD)W/NNAMDI BILAT IMPRESSION: Stable bilateral screening mammogram. Yearly follow-up mammogram recommended. (A) ASSESSMENT CATEGORY: BIRADS Category 2: Benign. A letter regarding these results will be sent to the patient by the facility within 30 days. Approximately 10% of breast cancers are not detected by mammography. A normal mammogram should not delay biopsy of a clinically suspicious abnormality. [id number] Electronically Signed: Brian Whiting MD at 14:45 EDT ,
--- OUTSIDE RECORDS SUMMARY | 2023-12-07 16:48 | XMS RPT_ITS | CCD ---
Author Organization [facility] Inform ion Partnership [facility] Care Team Providers Care Appeals Referee Name Role Phone Yuniel SMITH MD, Marija Unavailable Radha SMITH, Celine Rider Primary Care Provider Yuniel SMITH, Marija Unavailable Darlene Topete MD Primary Care Provider DARLENE TOPETE Primary Care Unavailable WADE AMAYA Referring Unavailable WADE AMAYA Attending Unavailable Allergies Allergy Classification Reported Allergen(s) Allergy Type Date of Onset Reaction(s) Facility (4 sources) Seasonal allergy; Translations: [SEASONAL ALLERGIES] Propensity to adverse reactions 05-13-2016 Intolerance [facility] Work Phone: Medications Current Medications Medication Drug Class(es) Dates Sig (Normalized) Sig (Original) Acetaminophen (3 sources) take 1 tablet by mouth once daily at bedtime ACETAMINOPHEN (TYLENOL ORAL) Take 1 tablet by mouth daily at bedtime. 0 Active Comment on above: Take 1 tablet by dasia th daily at bedtime. alendronic acid 70 mg effervescent oral tablet (1 source) Bisphosphonate take 35 mg by mouth once daily in the morning alendronate 70 mg tbef Take 35 mg by mouth once daily. In AM with cup of water on empty stomach. Nothing else by mouth and stay upright for 30 min. 0 Active amiodarone hydrochloride 200 mg oral tablet (1 source) Antiarrhythmic Start: 07-01-2023 amiodarone (PACERONE) 200 mg tablet Take 100 mg by mouth once daily. 0 07/01/2023 Active amLODIPine 10 mg oral tablet (3 sources) Dihydropyridine Calcium Channel Maribell Start: 12-28-2019 take 2.5 mg by mouth once amLODIPine (NORVASC) 10 mg tablet Take 2.5 mg by mouth once daily. 2.5 mg daily 0 12/28/2019 Active Start: 12-28-2019 take 1 tablet by dasia th once daily amLODIPine (NORVASC) 10 mg tablet Take 10 mg by mouth once daily. 0 12/28/2019 Active Comment on above: Take 10 mg by mouth once daily. atorvastatin 20 mg oral tablet (3 sources) HMG-CoA Reductase Inhibitor Start: take 1 tablet by mouth once daily atorvastatin (LIPITOR) 20 mg tablet Take 20 mg by mouth once daily. 0 06/05/2018 Active Comment on above: Take 20 mg by mouth once daily. Calcium Carbonate / vitamin D3 (3 sources) take 1 tablet by mouth twice daily calcium carbonate/vitamin D3 (CALCIUM 500 + D, D3, ORAL) Take 1 tablet by mouth twice daily. 0 Active Comment on above: Take 1 tablet by dasia th twice daily. diphenhydrAMINE hydrochloride 25 mg oral capsule (3 sources) Histamine-1 Receptor Antagonist take 1 capsule by mouth once daily at bedtime diphenhydrAMINE (BENADRYL) 25 mg capsule Take 25 mg by mouth daily at bedtime. 0 Active Comment on above: Take 25 mg by mouth daily at bedtime. hydroCHLOROthiazide 25 mg / losartan potassium 100 mg oral tablet (3 sources) Thiazide Diuretic, Angiotensin 2 Receptor Maribell Start: take 1 tablet by mouth once daily losartan-hydrochlorot hiazide (HYZAAR) 100-25 mg per tablet Take 1 tablet by mouth once daily. 0 03/18/2018 Active Comment on above: Take 1 tablet by dasia th once daily. levothyroxine sodium 0.025 mg oral tablet (1 source) l-Thyroxine Start: take 1 tablet by mouth once levothyroxine (SYNTHROID) 25 mcg tablet Take 1 tablet by mouth every afternoon. 0 07/16/2023 Active metoprolol tartrate 50 mg oral tablet (3 sources) beta-Adrenergic Maribell Start: take 1 tablet by mouth twice daily metoprolol tartrate, short acting, (LOPRESSOR) 50 mg tablet Take 1 tablet by mouth twice daily. 0 07/22/2018 Active Comment on above: Take 1 tablet by dasia th twice daily. Multivitamins chew (3 sources) take 1 tablet by mouth once daily Multivitamins chew Take 1 tablet by mouth once daily. 0 Active Comment on above: Take 1 tablet by dasia th once daily. vitamin b12 1 mg oral tablet (3 sources) Vitamin B12 take 1 tablet by mouth once daily cyanocobalamin (VITAMIN B-12) 1,000 mcg tab Take 1,000 mcg by mouth once daily. 0 Active Comment on above: Take 1,000 mcg by mo ut once daily. warfarin sodium 2 mg oral tablet (3 sources) Vitamin K Antagonist Start: 019 take 2 tablets by mouth once daily warfarin (COUMADIN) 2 mg tablet Take 2 tablets by mouth once daily. (Dr. Victoria managing) 0 07/22/2018 Active Comment on above: Take 2 tablets by mo [facility] once daily. (Dr. Victoria managing) Completed/Discontinued Medications Medication Drug Class(es) Dates Sig (Normalized) Sig (Original) anastrozole 1 mg oral tablet (3 sources) Aromatase Inhibitor Start: 09-30-2020 End: 07-28-2022 take 1 tablet by mouth once daily anastrozole (ARIMIDEX) 1 mg tablet Indications: Lobular carcinoma of left breast (HCC) Take 1 tablet by mouth once daily. 90 tablet 3 07/09/2021 07/28/2022 Discontinued Comment on above: Take 1 tablet by dasia th once daily. Calcium Carbonate (1 source) End: 07-09-2021 take 2 tablets by mouth once daily CALCIUM CARBONATE (CALCIUM 600 ORAL) Take 2 tablets by mouth once daily. 0 07/09/2021 Discontinued Comment on above: Take 2 tablets by mo ut once daily. cetirizine hydrochloride 10 mg oral tablet (1 source) Histamine-1 Receptor Antagonist Start: 01-13-2017 End: 07-09-2021 take 1 tablet by mouth once daily cetirizine (ZYRTEC) 10 mg tablet Indications: Cough , Seasonal allergic rhinitis due to other allergic trigger, unspecified chronicity Take 1 tablet by mouth once daily. 0 01/13/2017 07/09/2021 Discontinued Comment on above: Take 1 tablet by dasia th once daily. Problems Active Problems Problem Classification Problem Date Documented Da te Episodic/Chronic Cancer of breast (7 sources) Infiltrating lobular carcinoma of breast; Translations: [Malignant neoplasm of unspecified site of left female breast] Onset: 02-25-2015 Resolved: 04-02-2015 Chronic Disorders of lipid metabolism (3 sources) Pure hypercholesterolemi a; Translations: [Pure hypercholesterolemi a, unspecified] Onset: 07-31-2015 07-31-2015 Chronic Nutritional deficiencies (3 sources) Vitamin D deficiency; Translations: [Vitamin D deficiency, unspecified] Onset: 12-24-2015 07-21-2017 Chronic Other screening for suspected conditions (not mental disorders or infectious disease) (1 source) Patient encounter status; Translations: [Encounter for screening mammogram for malignant neoplasm of breast] 07-29-2023 Episodic Past or Other Problems Problem Classification Problem Date Documented Da te Episodic/Chronic Deficiency and other anemia (1 source) Nutritional anemia; Translations: [Vitamin B12 deficiency anemia, unspecified] Onset: 07-31-2015 Resolved: 07-21-2017 07-21-2017 Episodic Other aftercare (3 sources) Long-term current use of aromatase inhibitor; Translations: [USP (current) use of aromatase inhibitors] Onset: 12-14-2017 12-14-2017 Episodic Other circulatory disease (3 sources) H/O: atrial fibrillation; Translations: [Personal history of other diseases of the circulatory system] Onset: 07-21-2017 10-22-2019 Episodic Results Test Name Value Interpretation Reference Range Facil ity CNOVSPon 07-29-2023 CNOVSP Visit (SP) Office ([facility]) TAMMI ROSALES ([id number]) 1940 F Date Time Provider Department 07/29/23 11:00 AM WADE AMAYA During your visit today, we recorded the following information about you: Temperature Pulse Blood pressure Weight 97.6 degrees 88/minute 102/67 75.5 kg Height 1.676 m Wade Amaya APRN.CNP 07/29/2023 11:27 AM Signed Chief Complaint Patient presents with: Established Patient HPI: Tammi Pathak Cornelia is a 82 year old female who presents here today [...] seasonal allergies Cardiac:denies chest pain/palpitations h/o a.fib -followed by cards GI:denies abd pain, n/v, moving bowels regularly :denies dysuria/hematuria -UTI May 2023. Extrem:denies pain to back/bones Endo:denies hot flashes Neuro:denies symptoms of neuropathy Skin:denies rashes/lesions Heme:occ. bleeding from hemorrhoids, on coumadin The ROS is otherwise negative. Past medical history, appointments, medications, allergies reviewed. No changes. EXAM: BP 102/67 Pulse 88 Temp 36.4 ?C (97.6 ?F) (Temporal) Ht 167.6 cm (5' 6 ) Wt 75.5 kg (166 lb 8 oz) SpO2 98% BMI 26.87 kg/m? APPEARANCE Well appearing, alert, in no [...] node biopsy. It's ER positive (>95%, strong), W[place] positive (2%, weak) and Her2/josé antonio 0-1+. - No concerning findings on exam. - Tolerated arimidex well. - Reviewed previous imaging done at [facility]. - Pt. completed over 7 years of arimidex. - Mammogram due in Oct-pt. has this done at [facility]. - Follow up in one year. - Pt. aware to call office with any questions/concerns. The patient indicates understanding of these issues and agrees with the plan. All documentation from previous visit of 07/28/22-Dr. Warren/myself was copied and pasted, documentation has been reviewed and edited as necessary for today's visit. Wade Amaya APRN.CNP Referring Provider: WADE AMAYA [[id number]] Allergies As of Date: 07/29/2023 Noted Allergy Reaction SEASONAL ALLERGIES 05/13/2016 5 - Intolerance Comments: Rhinitis Date Reviewed: 07/29/2023 Reviewed by: Wade Amaya APRN.CNP - Fully Assessed Reason for Visit: Established Patient [175] Primary Visit Diagnosis:Lobular carcinoma of left breast (HCC) [C50.912] Other Visit Diagnosis:Encounter for screening mammogram for high-risk patient [Z12.31] Order(s):GUY SCREENING W NNAMDI [[id number]] Order #: [id number] FUTURE Follow-up and Disposition History for Encounter Date Provider Department Center 07/29/2023 [id number] AMAYA [facility] Prescriptions as of 07/29/2023 - alendronate 70 mg tbef Take 35 mg by mouth once daily. In AM with cup of water on (more content not included)... Normal [facility] Vital Signs Date Time Vital Sign Value Performing Clinician Melinda daniels 07-29-2023 10:52-0400 Body height 167.6 cm Wade Amaya APRN.PAPER NOVELTY MAKER Work Phone: [facility] 07-29-2023 10:52-0400 Body mass index (BMI) [Ratio] 26.87 kg/m2 Wade Amaya APRN.PAPER NOVELTY MAKER Work Phone: [facility] 07-29-2023 10:52-0400 Body temperature 97.59 [degF] Wade Amaya APRN.PAPER NOVELTY MAKER Work Phone: [facility] 07-29-2023 10:52-0400 Body weight 75.52 kg Wade Amaya APRN.PAPER NOVELTY MAKER Work Phone: [facility] 07-29-2023 10:52-0400 Diastolic blood pressure 67 mm[Hg] Wade Amaya GARMENT LOOPER.PAPER NOVELTY MAKER Work Phone: [facility] 07-29-2023 10:52-0400 Heart rate 88 /min Wade Amaya APRN.PAPER NOVELTY MAKER Work Phone: [facility] 07-29-2023 10:52-0400 SaO2% (BldA) [Mass fraction] 98 % Wade Amaya APRN.PAPER NOVELTY MAKER Work Phone: [facility] 07-29-2023 10:52-0400 Systolic blood pressure 102 mm[Hg] Wade Amaya GARMENT LOOPER.PAPER NOVELTY MAKER Work Phone: [facility] 07-28-2022 11:23-0400 Body height 167.6 cm Wade Amaya APRN.PAPER NOVELTY MAKER Work Phone: [facility] 07-28-2022 11:23-0400 Body temperature 97.39 [degF] Wade Amaya APRN.PAPER NOVELTY MAKER Work Phone: [facility] 07-28-2022 11:23-0400 Body weight 78.93 kg Wade Amaya GARMENT LOOPER.PAPER NOVELTY MAKER Work Phone: [facility] 07-28-2022 11:23-0400 Diastolic blood pressure 55 mm[Hg] Wade Amaya GARMENT LOOPER.PAPER NOVELTY MAKER Work Phone: [facility] 07-28-2022 11:23-0400 Heart rate 56 /min Wade Amaya GARMENT LOOPER.PAPER NOVELTY MAKER Work Phone: [facility] 07-28-2022 11:23-0400 Respiratory rate 18 /min Wade Amaya GARMENT LOOPER.PAPER NOVELTY MAKER Work Phone: [facility] 07-28-2022 11:23-0400 SaO2% (BldA) [Mass fraction] 96 % Wade Amaya GARMENT LOOPER.PAPER NOVELTY MAKER Work Phone: [facility] 07-28-2022 11:23-0400 Systolic blood pressure 107 mm[Hg] Wade Amaya GARMENT LOOPER.PAPER NOVELTY MAKER Work Phone: [facility] 07-09-2021 10:35-0400 Body temperature 97.39 [degF] [place] Amaya GARMENT LOOPER.PAPER NOVELTY MAKER Work Phone: [facility] 07-09-2021 10:35-0400 Body weight 77.79 kg [place] Amaya GARMENT LOOPER.PAPER NOVELTY MAKER Work Phone: [facility] 07-09-2021 10:35-0400 Diastolic blood pressure 52 mm[Hg] [place] Amaya GARMENT LOOPER.PAPER NOVELTY MAKER Work Phone: [facility] 07-09-2021 10:35-0400 Heart rate 61 /min [place] Amaya GARMENT LOOPER.PAPER NOVELTY MAKER Work Phone: [facility] 07-09-2021 10:35-0400 Systolic blood pressure 102 mm[Hg] Wade Amaya GARMENT LOOPER.PAPER NOVELTY MAKER Work Phone: [facility] Encounters Encounter Date Encounter Type Care Provider Facility Start: 07-29-2023 End: 07-29-2023 ambulatory Wade Amaya GARMENT LOOPER.PAPER NOVELTY MAKER Work Phone: Hematology/Oncology Comment on above: Lobular carcinoma of left breast (HCC) (Primary Dx); Encounter for screening mammogram for high-risk patient Start: 07-29-2023 End: 07-29-2023 Patient encounter procedure Wade Amaya APRN.ALIX Work Phone: Hematology/Oncology Start: 07-28-2022 End: 07-28-2022 ambulatory Wade Amaya APRN.ALIX Work Phone: Hematology/Oncology Comment on above: Lobular carcinoma of left breast (HCC) (Primary Dx) Start: 07-28-2022 End: 07-28-2022 Patient encounter procedure Wade Amaya APRN.ALIX Work Phone: [facility] Start: 07-09-2021 End: 07-09-2021 ambulatory Wade Amaya APRN.ALIX Work Phone: Hematology/Oncology Comment on above: Lobular carcinoma of left breast (HCC) Start: 07-09-2021 End: 07-09-2021 Patient encounter procedure Wade Amaya APRN.ALIX [facility] Procedures Date Procedure Procedure Detail Performing Clinician Start: 06-08-2017 Adult depression screening assessment Wade Amaya APRN.CNP Work Phone: Plan of Treatment Date Care Activity Detail Author Start: 07-28-2024 End: 07-28-2024 ambulatory 07/28/2024 11:00 AM EDT Visit (SP) Office Hematology/Oncology [address] [place] [id number] Wade Amaya APRN.CNP [address] [place] [id number] 1 YR OV* Hematology/Oncology Comment on above: 1 YR OV* Start: 04-22-2023 Covid-19 Vaccine ( season) Covid-19 Vaccine () [facility] Start: 02-08-2023 Advance Directive Discussion Advance Directive Discussion [facility] Start: 02-08-2023 Behavioral Health Screening Behavioral Health Screening [facility] Start: 02-08-2022 ADVANCE DIRECTIVE DISCUSSION ADVANCE DIRECTIVE DISCUSSION [facility] Start: 02-08-2022 DEPRESSION ASSESSMENT DEPRESSION ASS ESSMENT [facility] Start: 10-09-2021 Influenza vaccination INFLUENZ A (Season Ended) [facility] Start: 09-27-2021 COVID-19 VACCINE (5 - Booster for Moderna series) COVID-19 VACCINE (5 - Booster for Moderna series) [facility] Start: 07-28-2021 DIABET[facility]CREEN [facility] Start: 07-28-2021 Diabetes Screening Diabetes Screenin g [facility] Start: 02-08-2021 ADVANCE DIRECTIVE DISCUSSION ADVANCE DIRECTIVE DISCUSSION [facility] Start: 06-08-2018 Adult depression screening assessment DEPRESSION SCREENING [facility] Start: 07-01-2017 PNEUMOCOCCAL: 65+ (3 - PPSV23 or PCV20) PNEUMOCOCCAL: 65+ (3 - PPSV23 or PCV20) [facility] Start: 10-01-2010 Urine microalbumin profile [facility] Start: 09-05-2010 SHINGRIX VACCINE (2 of 3) SHINGRIX VACCINE (2 of 3) [facility] Start: 1958 HEPATITIS C SCREENING HEPATITIS C SC SANCHO [facility] End: 08-27-2024 DBT Breast - bilateral screening GUY SCREENING W NNAMDI Radiology Routine Lobular carcinoma of left breast (HCC) Encounter for screening mammogram for high-risk patient 1 Occurrences starting 07/29/2023 until 08/27/2024 [facility] Work Phone: Comment on above: 1 Occurrences starti ng 07/29/2023 until 08/27/2024 [facility] Immunizations Immunization Date Immunization Notes Care Provider Carroll johnson 10-29-2019 influenza, high dose seasonal, preservative-free Wade Amaya GARMENT LOOPER.PAPER NOVELTY MAKER Work Phone: [facility] Work Phone: 11-28-2018 influenza, high dose seasonal, preservative-free Wade Amaya GARMENT LOOPER.PAPER NOVELTY MAKER Work Phone: [facility] 11-19-2017 influenza, high dose seasonal, preservative-free [place] Amaya GARMENT LOOPER.PAPER NOVELTY MAKER Work Phone: [facility] 11-16-2016 influenza, high dose seasonal, [facility].PAPER NOVELTY MAKER Work Phone: [facility] 07-01-2016 pneumococcal conjuga te vaccine, 13 valent [facility] GARMENT LOOPER.PAPER NOVELTY MAKER Work Phone: [facility] 11-27-2015 influenza, seasonal, injectable Wade Baltazarenter GARMENT LOOPER.PAPER NOVELTY MAKER Work Phone: [facility] 09-30-2010 tetanus and diphther ia toxoids, not adsorbed, for adult use Wade Amaya GARMENT LOOPER.PAPER NOVELTY MAKER Work Phone: [facility] 07-11-2010 zoster vaccine, live Wade C arpenter GARMENT LOOPER.PAPER NOVELTY MAKER Work Phone: [facility] 11-19-2009 influenza virus vacc ine, whole virus [facility] GARMENT LOOPER.PAPER NOVELTY MAKER Work Phone: [facility] 07-01-2009 pneumococcal polysaccharide vaccine, 23 valent [facility] G[facility] LOOPER.PAPER NOVELTY MAKER Work Phone: [facility] 11-02-2008 influenza virus vacc ine, whole virus [facility] GARMENT LOOPER.PAPER NOVELTY MAKER Work Phone: [facility] 11-02-2008 pneumococcal conjuga te vaccine, 7 valent [facility] GARMENT LOOPER.PAPER NOVELTY MAKER Work Phone: [facility] 12-07-2006 influenza virus vacc ine, whole virus [facility] GARMENT LOOPER.PAPER NOVELTY MAKER Work Phone: [facility] Payers Date Payer Category Payer Medicare MEDICARE MEDICAR E A AND B [id number] 2007-Present [phone] [place] [address] Medicare [id number] 2007 Medicare MEDICARE MEDICAR E A AND B [id number] 2007-Present [phone] [place] [address] Medicare [id number] 2007 Medicare [id number] 1981 Unknown DEBBIE LEWIS BC BS FEP PPO [id number] 1981-Present [phone] [address] [place] [address] PPO [id number] 1981 Unknown ANTHEM DEBBIE BC BS FEP PPO [id number] 1979-Present [phone] [address] [place] [address] PPO [id number] 1979 Unknown [id number] Social History Date Type Detail Facility Start: 02-14-2015 End: 04-08-2015 Tobacco smoking status NHIS Never smoked tobacco [facility] Start: 02-14-2015 End: 04-08-2015 Tobacco use and exposure Smokeless tobacco non-user [facility] Start: 07-09-2021 End: 07-29-2023 Alcohol intake Current non-drinker of alcohol (finding) [facility] Start: 1940 Sex Assigned At Not on file [facility] Start: 07-28-2022 End: 07-29-2023 History of Social function [facility] Start: 07-28-2022 End: 07-29-2023 Tobacco use panel [facility] Adult Depression Scr eening Assessment 1 [facility] Progress note 07-29-2023 Note Date & Type Note Facility 07-29-2023 Note HNO ID: [id number] Author: WADE AMAYA APRN.PAPER NOVELTY MAKER Service: ? Author Type: Nurse Practitioner Type: Progress Notes Filed: 07/29/2023 11:27 Note Text: Chief Complaint Patient presents with: Established Patient HPI: Tammi Rosales is a 82 year old female who presents here today [...] seasonal allergies Cardiac:denies chest pain/palpitations h/o a.fib -followed by cards GI:denies abd pain, n/v, moving bowels regularly :denies dysuria/hematuria -UTI May 2023. Extrem:denies pain to back/bones Endo:denies hot flashes Neuro:denies symptoms of neuropathy Skin:denies rashes/lesions Heme:occ. bleeding from hemorrhoids, on coumadin The ROS is otherwise negative. Past medical history, appointments, medications, allergies reviewed. No changes. EXAM: BP 102/67 Pulse 88 Temp 36.4 ?C (97.6 ?F) (Temporal) Ht 167.6 cm (5' 6 ) Wt 75.5 kg (166 lb 8 oz) SpO2 98% BMI 26.87 kg/m? APPEARANCE Well appearing, alert, in no [...] node biopsy. It's ER positive (>95%, strong), W[place] positive (2%, weak) and Her2/josé antonio 0-1+. - No concerning findings on exam. - Tolerated arimidex well. - Reviewed previous imaging done at [facility]. - Pt. completed over 7 years of arimidex. - Mammogram due in Oct-pt. has this done at [facility]. - Follow up in one year. - Pt. aware to call office with any questions/concerns. The patient indicates understanding of these issues and agrees with the plan. All documentation from previous visit of 07/28/22-Dr. Warren/myself was copied and pasted, documentation has been reviewed and edited as necessary for today's visit. Wade Amaya APRN.ALIX [facility] History of Present illness Narrative 07-29-2023 Wade Amaya APRN.ALIX - 07/29/2023 11:02 AM EDT Note Date & Type Note Facility 07-29-2023 History of Presen t illness Narrative Chief Complaint Patient presents with: Established Patient HPI: Tammi Rosales is a 82 year old female who presents here today [...] seasonal allergies Cardiac:denies chest pain/palpitations h/o a.fib -followed by cards GI:denies abd pain, n/v, moving bowels regularly :denies dysuria/hematuria -UTI May 2023. Extrem:denies pain to back/bones Endo:denies hot flashes Neuro:denies symptoms of neuropathy Skin:denies rashes/lesions Heme:occ. bleeding from hemorrhoids, on coumadin The ROS is otherwise negative. Past medical history, appointments, medications, allergies reviewed. No changes. EXAM: BP 102/67 Pulse 88 Temp 36.4 C (97.6 F) (Temporal) Ht 167.6 cm (5' 6 ) Wt 75.5 kg (166 lb 8 oz) SpO2 98% BMI 26.87 kg/m APPEARANCE Well appearing, alert, in no [...] node biopsy. It's ER positive (>95%, strong), W[place] positive (2%, weak) and Her2/josé antonio 0-1+. - No concerning findings on exam. - Tolerated arimidex well. - Reviewed previous imaging done at [facility]. - Pt. completed over 7 years of arimidex. - Mammogram due in Oct-pt. has this done at [facility]. - Follow up in one year. - Pt. aware to call office with any questions/concerns. The patient indicates understanding of these issues and agrees with the plan. All documentation from previous visit of 07/28/22-Dr. Warren/myself was copied and pasted, documentation has been reviewed and edited as necessary for today's visit. Wade Amaya APRN.CNP documented in this encounter [facility] History of Present illness Narrative 07-28-2022 Wade Amaya APRN.CNP - 07/28/2022 11:31 AM EDT Note Date & Type Note Facility 07-28-2022 History of Presen t illness Narrative Chief Complaint Patient presents with: Established Patient HPI: Tammi Rosales is a 81 year old female who [...] node biopsy. It's ER positive (>95%, strong), W[place] positive (2%, weak) and Her2/josé antonio 0-1+. - No concerning findings on exam. - Tolerating arimidex well. - Reviewed previous imaging done at [facility]. - Pt. has now completed over [...] and edited as necessary for today's visit. Wade Amaya APRN.CNP documented in this encounter [facility] History of Present illness Narrative 07-09-2021 Wade Amaya APRN.CNP - 07/09/2021 10:32 AM EDT Note Date & Type Note Facility 07-09-2021 History of Presen t illness Narrative Chief Complaint Patient presents with: Established Patient HPI: Tammi Rosales is a 80 year old female who [...] node biopsy. It's ER positive (>95%, strong), W[place] positive (2%, weak) and Her2/josé antonio 0-1+. - No concerning findings on exam. - Tolerating arimidex well. - Reviewed previous imaging done at [facility]. - Continue arimidex. Rx done. - [...] and edited as necessary for today's visit. Wade Amaya APRN.ALIX documented in this encounter [facility] History of Past illness Narrative 07-31-2015 Note Date & Type Note Facility 07-31-2015 History of Past i llness Narrative Problem Noted Date Resolved Date Anemia due to vitamin B12 deficiency 07/31/2015 07/21/2017 Lobular breast cancer 02/25/2015 04/02/2015 documented as of this encounter (statuses as of 07/09/2021) [facility] History of Past illness Narrative 07-31-2015 Note Date & Type Note Facility 07-31-2015 History of Past i llness Narrative Problem Noted Date Resolved Date Anemia due to vitamin B12 deficiency 07/31/2015 07/21/2017 Lobular breast cancer 02/25/2015 04/02/2015 documented as of this encounter (statuses as of 07/29/2022) [facility] Evaluation note Note Date & Type Note Facility Evaluation note Diagnosis Lobular carcinoma of left breast (HCC) Malignant neoplasm of breast (female), unspecified site documented in this encounter [facility] Evaluation note Note Date & Type Note Facility Evaluation note Diagnosis Lobular carcinoma of left breast (HCC)- Primary Malignant neoplasm of breast (female), unspecified site documented in this encounter [facility] Evaluation note Note Date & Type Note Facility Evaluation note Diagnosis Lobular carcinoma of left breast (HCC)- Primary Malignant neoplasm of breast (female), unspecified site Encounter for screening mammogram for high-risk patient documented in this encounter [facility] Reason for referral (narrative) Diagnostic Procedure Only (Routine) - Pending Review Note Date & Type Note Facility Reason for referral (narrati ve) Specialty Diagnoses / Procedures Referred By Contac t Referred To Contact [facility] Diagnoses Lobular carcinoma of left breast (HCC) Encounter for screening mammogram for high-risk patient Procedures GUY SCREENING W NNAMDI SCREENING DIGITAL BREAST TOMOSYNTHESIS BI SCREENING MAMMOGRAPHY BI 2-VIEW BREAST INC Wade Keating APRN.CNP [address] [place] [address] [facility] [address] [place] [address] Referral ID Status Reason Start Date Expiration Date Visits Requested Visits Authorized [id number] Pending Review Auto-Generat ed Referral 07/29/2023 08/27/2024 1 1 [facility] Advance Directives No Advanced Directives Records FoundDocuments on File Type Date Recorded Patient Manufacturing Maintenance Mechanic Expl anation Advance Directive(s) 08/01/2018 2:48 PM Advance Directive(s) 06/16/2016 11:00 AM Advance Directive(s) 06/10/2016 2:38 PM Documents on File Type Date Recorded Patient Manufacturing Maintenance Mechanic Expl anation Advance Directive(s) 08/01/2018 2:48 PM Documents on File Type Date Recorded Patient Manufacturing Maintenance Mechanic Expl anation Advance Directive(s) 08/01/2018 2:48 PM [...] or prosecute any alcohol or drug abuse patient.[facility] the event this information is protected by the Federal Confidentiality of Alcohol and Drug Abuse Patient Records regulations: The Federal rules restrict any use of the information to criminally investigate or prosecute any alcohol or drug abuse patient.[facility] the event this information is protected by the Federal Confidentiality of Alcohol and Drug Abuse Patient Records regulations: The Federal rules restrict any use of the information to criminally investigate or prosecute any alcohol or drug abuse patient.[facility] Reason for Visit (unrecogniz ed section and content) Reason Comments Established Patient Reason Comments Established Patient Care Teams (unrecognized sec tion and content) Appeals Referee Relationship Specialty Start Date End Date Celine Garcia MD [address] [place] [address] PCP - General Internal Medicine 12/09/15 Marija Brice MD, [address] [place] [address] Physician Radiation Oncology 04/04/15 Appeals Referee Relationship Specialty Start Date End Date Celine Garcia MD [address] [place] [address] PCP - General Internal Medicine 12/09/15 Mariaj Brice MD, [address] [place] [address] Physician Radiation Oncology 04/04/15 Appeals Referee Relationship Specialty Start Date End Date Darlene Topete MD [address] [place] [address] PCP - General Internal Medicine 01/12/23 Marija Brice MD [address] [place] [id number] Physician Radiation Oncology 04/04/15 INFORMATION SOURCE (unrecogn ized section and content) DATE CREATED AUTHOR 07/31/2023 [facility] FOR RECORDS PERTAINING TO PATIENTS WHO ARE [...] BE BASED ON THE PRIMARY CLINICAL RECORDS. [employer] provides no warranty or guarantee of the accuracy or completeness of information in this document.
== END | disposition home or self-care (01) ==
LOC: OPBI 11:39
PROVIDERS: PCP Internal Medicine; Referring Provider Nurse Practitioner; Visit Provider Nurse Practitioner
DX: Z12.31 Encounter for screening mammogram for malignant neoplasm of breast (principal)
CPT/HCPCS: 77063; 77067

== ENCOUNTER 2023-12-30 13:43 | Outpatient (RCR) | payer MEDICARE, BC, SELFPAY ==
[2023-12-09 20:49] VITALS: BMI 26.6
[2023-12-10 16:40] LABS: International Normalized Ratio 3.5; Prothrombin Time (Protime)PT. 34.8 SECONDS (11.7-14.9)
[2023-12-17 12:25] LABS: International Normalized Ratio 3.1; Prothrombin Time (Protime)PT. 31.7 SECONDS (11.7-14.9)
[2023-12-30 15:17] LABS: International Normalized Ratio 1.9; Prothrombin Time (Protime)PT. 21.8 SECONDS (11.7-14.9)
== END 2024-01-08 18:00 | disposition home or self-care (01) ==
LOC: MTLAB 13:43
PROVIDERS: Family Provider Internal Medicine; PCP Internal Medicine; Referring Provider Internal Medicine Cardiovascular Disease; Visit Provider Internal Medicine Cardiovascular Disease
DX: I48.19 Other persistent atrial fibrillation (principal); Z79.01 Long term (current) use of anticoagulants
CPT/HCPCS: 36415; 85610

== ENCOUNTER 2024-02-07 12:07 | Outpatient (RCR) | payer MEDICARE, BC, SELFPAY ==
[2024-01-09 02:35] VITALS: BMI 26.6
[2024-01-14 12:17] LABS: International Normalized Ratio 2.6; Prothrombin Time (Protime)PT. 27.6 SECONDS (11.7-14.9)
[2024-02-07 15:22] LABS: International Normalized Ratio 2.5; Prothrombin Time (Protime)PT. 27.9 SECONDS (11.7-14.9)
== END 2024-02-08 23:59 ==
LOC: BIMLAB 12:07
PROVIDERS: Family Provider Internal Medicine; PCP Internal Medicine; Referring Provider Internal Medicine Cardiovascular Disease; Visit Provider Internal Medicine Cardiovascular Disease
DX: I48.19 Other persistent atrial fibrillation (principal); Z79.01 Long term (current) use of anticoagulants
CPT/HCPCS: 36415; 85610

== ENCOUNTER → 2024-03-08 | Outpatient (CLI) | payer MEDICARE, BC, SELFPAY ==
[2024-03-08 12:26] LABS: International Normalized Ratio 2.7; Prothrombin Time (Protime)PT. 29.2 SECONDS (11.7-14.9)
== END | disposition home or self-care (01) ==
LOC: BIMLAB 08:29
PROVIDERS: PCP Internal Medicine; Visit Provider Internal Medicine Cardiovascular Disease
DX: I48.91 Unspecified atrial fibrillation (principal); Z79.01 Long term (current) use of anticoagulants
CPT/HCPCS: 36415; 85610

== ENCOUNTER 2024-04-06 15:01 | Outpatient (RCR) | payer MEDICARE, BC, SELFPAY ==
[2024-02-09 00:27] VITALS: BMI 26.6
[2024-04-06 16:54] LABS: International Normalized Ratio 3.6; Prothrombin Time (Protime)PT. 36.9 SECONDS (11.7-14.9)
== END 2024-04-07 23:59 ==
LOC: BIMLAB 15:01
PROVIDERS: Family Provider Internal Medicine; PCP Internal Medicine; Referring Provider Internal Medicine Cardiovascular Disease; Visit Provider Internal Medicine Cardiovascular Disease
DX: I48.19 Other persistent atrial fibrillation (principal); Z79.01 Long term (current) use of anticoagulants
CPT/HCPCS: 36415; 85610

== ENCOUNTER → 2024-04-11 | Outpatient (CLI) | payer MEDICARE, BC, SELFPAY | END | disposition home or self-care (01) | LOC: PSN 11:23 | PROVIDERS: PCP Internal Medicine; Referring Provider Physician Assistant Medical; Visit Provider Physician Assistant Medical | DX: R00.1 Bradycardia, unspecified (principal) | CPT/HCPCS: 93225; 93226 ==

== ENCOUNTER → 2024-04-20 | Outpatient (CLI) | payer MEDICARE, BC, SELFPAY ==
[2024-04-20 18:28] LABS: Absolute Lymphocyte Count 1.93 X10^3/uL (0.83-4.51); Absolute Neutrophil Count 5.1 X10^3/uL (2.0-7.7); Basophil# 0.04 X10^3/uL; Basophil% 0.5 % (0-1); Eosinophil# 0.27 X10^3/uL; Eosinophils% 3.3 % (0-5); Hematocrit 34.7 % (37-47); Hemoglobin 11.5 g/dL (12.0-15.0); Lymphocyte # 1.93 X10^3/ul (0.83-4.51); Lymphocyte % 23.7 % (19-41); Mean Corp Hgb Conc 33.1 g/dL (32-36); Mean Corpuscular Hgb 33.8 pg (27.0-32.0); Mean Corpuscular Volume 102.1 fL (81-99); Mean Platelet Vol. 10.4 fl (6.2-12.0); Monocyte# 0.76 X10^3/uL; Monocyte% 9.3 % (0-10); NRBC Flagged by Analyzer 0 % (0-5); Neutrophil # 5.11 X10^3/uL (2.7-7.7); Platelet Count 255 K/mm3 (150-450); RBC Distribution Width CV 13.8 % (11.6-14.6); RBC Distribution Width SD 51.9 fl (35.1-43.9); White Blood Count 8.1 K/mm3 (4.4-11.0)
[2024-04-20 18:31] LABS: ALB/GLOB Ratio 1.4 RATIO (0.9-2.4); AST(SGOT) 45 U/L (<=31); Alanine Aminotransfer ALT/SGPT 40 U/L (<=34); Albumin, Serum 4.2 g/dL (3.4-4.8); Alkaline Phosphatase 102 U/L (35-104); Anion Gap 15 (5-15); BUN 36 mg/dL (4-19); BUN/Creat Ratio 22.1 RATIO (10-20); Calcium,Total 9.5 mg/dL (7.6-11.0); Carbon Dioxide 21.6 mmol/L (21.0-32.0); Chloride 101 mmol/L (98-108); Creatinine, Serum 1.61 mg/dL (0.70-1.20); EST Glomerular Filtration Rate 32 (>60); Globulin 3.1 g/dL (2.2-4.2); Glucose 110 mg/dL (70-99); Potassium 4.4 mmol/L (3.3-5.1); Protein, Total 7.3 g/dL (5.9-8.4); Sodium Level 137 mmol/L (133-145); Total Bilirubin 0.23 mg/dL (0.00-1.30)
[2024-04-22 06:07] LABS: Rubeola IgG Ab > 300.0 AU/mL (Immune >16.4)
== END | disposition home or self-care (01) ==
LOC: BIMLAB 14:55
PROVIDERS: PCP Internal Medicine; Referring Provider Internal Medicine; Visit Provider Internal Medicine
DX: Z01.84 Encounter for antibody response examination (principal); E03.9 Hypothyroidism, unspecified; I10 Essential (primary) hypertension
CPT/HCPCS: 36415; 80053; 84443; 85025; 86765

== ENCOUNTER 2024-05-01 10:56 | Outpatient (RCR) | payer MEDICARE, BC, SELFPAY ==
[2024-04-08 00:21] VITALS: BMI 26.6
[2024-04-14 12:30] LABS: Prothrombin Time (Protime)PT. 31.4 SECONDS (11.7-14.9)
[2024-05-01 12:48] LABS: International Normalized Ratio 2.2; Prothrombin Time (Protime)PT. 24.6 SECONDS (11.7-14.9)
== END 2024-05-08 23:59 ==
LOC: BIMLAB 10:56
PROVIDERS: Family Provider Internal Medicine; PCP Internal Medicine; Referring Provider Internal Medicine Cardiovascular Disease; Visit Provider Internal Medicine Cardiovascular Disease
DX: I48.19 Other persistent atrial fibrillation (principal); Z79.01 Long term (current) use of anticoagulants
CPT/HCPCS: 36415; 85610

== ENCOUNTER 2024-05-15 15:40 | Outpatient (RCR) | payer MEDICARE, BC, SELFPAY ==
[2024-05-09 00:11] VITALS: BMI 26.6
[2024-05-15 17:59] LABS: International Normalized Ratio 2.1; Prothrombin Time (Protime)PT. 23.8 SECONDS (11.7-14.9)
== END 2024-06-07 23:59 ==
LOC: BIMLAB 15:40
PROVIDERS: Family Provider Internal Medicine; PCP Internal Medicine; Referring Provider Internal Medicine Cardiovascular Disease; Visit Provider Internal Medicine Cardiovascular Disease
DX: I48.91 Unspecified atrial fibrillation (principal); Z79.01 Long term (current) use of anticoagulants
CPT/HCPCS: 36415; 85610

== ENCOUNTER → 2024-05-30 | Outpatient (CLI) | payer MEDICARE, BC, SELFPAY ==
--- NOTE | 2024-05-30 14:49 | ECHOD_ITS ---
Reason For Study Reason For Study: Murmur Procedure This was a 2D Doppler, Color Flow transthoracic echocardiogram. Exam performed in department. Left Ventricle Normal LV size. The left ventricular ejection fraction is 65 %. No regional wall motion abnormalities noted. Right Ventricle Normal RV size. Normal systolic function. Atria The left atrium is mildly enlarged. Normal right atrium. Mitral Valve There is mild mitral annular calcification. Mild (1+) eccentric mitral valve insufficiency. Tricuspid Valve Normal tricuspid valve. Moderate (2+) tricuspid valve insufficiency. Pulmonary artery systolic pressure is 54 mmHg. Aortic Valve Trisinus/trileaflet aortic valve. Mild focal aortic valve calcification. Peak aortic valve gradient 37 mmHg. Mean aortic valve gradient 17 mmHg. Mild to moderate aortic stenosis. Pulmonic Valve Normal pulmonic valve. Great Vessels Normal aortic root. The pulmonary artery is normal size. Inferior vena cava collapse with respiration. Pericardium/Pleural No pericardial effusion. MMode/2D Measurements & Calculations LVIDd: 4.9 cm IVSd: 0.79 cm LVOT diam: 2.0 cm LVIDs: 3.1 cm LVPWd: 0.88 cm LVOT area: 3.1 cm2 RVDd: 3.4 cm FS: 35.5 % Ao root diam: 3.1 cm LAV(MOD-bp): 84.0 ml LVAd ap4: 20.5 cm2 LAV(MOD-bp) Indexed: 44.8 ml/m2 LVLd ap4: 6.6 cm LAV(MOD-sp2): 99.4 ml EDV(MOD-sp4): 52.8 ml LAV(MOD-sp4): 68.6 ml EDV(sp4-el): 54.1 ml LVAs ap4: 10.4 cm2 LVLs ap4: 5.1 cm ESV(MOD-sp4): 18.6 ml ESV(sp4-el): 17.9 ml EF(MOD-sp4): 64.7 % EF(sp4-el): 67.0 % SV(MOD-sp4): 34.2 ml SV(sp4-el): 36.2 ml Aortic Valve Planimetry: 1.5 cm2 SI(MOD-sp4): 18.2 ml/m2 LA A4 area: 23.0 cm2 LA dimension(2D): 4.8 cm RA A4 area: 15.8 cm2 TAPSE: 2.2 cm Doppler Measurements & Calculations MV E max braulio: 101.4 cm/sec Lat Peak E' Braulio: 14.4 cm/sec Med Peak E' Braulio: 10.0 cm/sec E/E' lat: 7.0 E/E' med: 10.1 MV V2 max: 118.4 cm/sec Ao V2 max: 305.4 cm/sec LV V1 max: 94.6 cm/sec MV max P.6 mmHg Ao max P.3 mmHg LV V1 max P.6 mmHg MV V2 mean: 52.3 cm/sec Ao V2 mean: 190.2 cm/sec LV V1 mean P.2 mmHg MV mean P.5 mmHg Ao mean P.1 mmHg LV V1 mean: 70.1 cm/sec MV V2 VTI: 35.3 cm Ao V2 VTI: 84.0 cm LV V1 VTI: 25.6 cm AV (velocity ratio): 0.30 MVA(VTI): 2.2 cm2 SHARAN(I,D): 0.93 cm2 SHARAN(V,D): 0.95 cm2 MR max braulio: 578.1 cm/sec SV(LVOT): 78.2 ml TR max braulio: 357.3 cm/sec MR max P.7 mmHg TR max P.1 mmHg MR mean braulio: 461.0 cm/sec MR mean P.6 mmHg MR VTI: 215.6 cm ECHO/Echo Complete Interpretation Summary Normal LV size. The left ventricular ejection fraction is 65 %. The left atrium is mildly enlarged. Mild (1+) eccentric mitral valve insufficiency. Mild to moderate aortic stenosis. Pulmonary artery systolic pressure is 54 mmHg. Ordering Physician: Lesly Smart Referring Physician: Lesly Smart Performed By: Trae Kang RCS
== END | disposition home or self-care (01) ==
LOC: CVS 14:48
PROVIDERS: PCP Internal Medicine; Referring Provider Physician Assistant Medical; Visit Provider Physician Assistant Medical
DX: R01.1 Cardiac murmur, unspecified (principal)
CPT/HCPCS: 93306

== ENCOUNTER → 2024-06-02 | Outpatient (CLI) | payer MEDICARE, BC, SELFPAY ==
[2024-06-02 17:18] LABS: ALB/GLOB Ratio 1.4 RATIO (0.9-2.4); AST(SGOT) 36 U/L (<=31); Alanine Aminotransfer ALT/SGPT 26 U/L (<=34); Albumin, Serum 4.2 g/dL (3.4-4.8); Alkaline Phosphatase 106 U/L (35-104); Anion Gap 11 (5-15); BUN 28 mg/dL (4-19); BUN/Creat Ratio 21.4 RATIO (10-20); Calcium,Total 9.3 mg/dL (7.6-11.0); Carbon Dioxide 26.4 mmol/L (21.0-32.0); Chloride 105 mmol/L (98-108); Creatinine, Serum 1.31 mg/dL (0.70-1.20); EST Glomerular Filtration Rate 41 (>60); Glucose 103 mg/dL (70-99); Potassium 4.2 mmol/L (3.3-5.1); Protein, Total 7.2 g/dL (5.9-8.4); Sodium Level 142 mmol/L (133-145); Total Bilirubin 0.31 mg/dL (0.00-1.30)
== END | disposition home or self-care (01) ==
LOC: LAB 15:37
PROVIDERS: PCP Internal Medicine; Referring Provider Internal Medicine; Visit Provider Internal Medicine
DX: E03.9 Hypothyroidism, unspecified (principal)
CPT/HCPCS: 36415; 80053; 84443

== ENCOUNTER 2024-06-14 12:09 | Outpatient (RCR) | payer MEDICARE, BC, SELFPAY ==
[2024-06-08 00:07] VITALS: BMI 26.6
[2024-06-14 15:50] LABS: International Normalized Ratio 2.3; Prothrombin Time (Protime)PT. 25.5 SECONDS (11.7-14.9)
[2024-06-14 15:56] LABS: Iron 60 ug/dL (50-170); Iron Binding Capacity,Total 357 ug/dL (250-450); Iron Binding Capacity,Unsat 297 ug/dL (228-428)
== END 2024-07-08 23:59 ==
LOC: BIMLAB 12:09
PROVIDERS: Family Provider Internal Medicine; PCP Internal Medicine; Referring Provider Internal Medicine Cardiovascular Disease; Visit Provider Internal Medicine Cardiovascular Disease
DX: Z79.01 Long term (current) use of anticoagulants; D64.9 Anemia, unspecified; I48.91 Unspecified atrial fibrillation
CPT/HCPCS: 36415; 83540; 83550; 85610

== ENCOUNTER → 2024-07-06 | Outpatient (CLI) | payer MEDICARE, BC, SELFPAY ==
[2024-07-06 17:25] LABS: Vitamin B12 626 pg/mL (180-914)
== END | disposition home or self-care (01) ==
LOC: BIMLAB 14:42
PROVIDERS: PCP Internal Medicine; Referring Provider Internal Medicine; Visit Provider Internal Medicine
DX: D64.9 Anemia, unspecified (principal)
CPT/HCPCS: 36415; 82607

== ENCOUNTER 2024-07-11 14:53 | Outpatient (RCR) | payer MEDICARE, BC, SELFPAY ==
[2024-07-09 00:06] VITALS: BMI 26.6
[2024-07-11 16:24] LABS: International Normalized Ratio 2.3; Prothrombin Time (Protime)PT. 26.1 SECONDS (11.7-14.9)
== END 2024-07-11 18:00 | disposition home or self-care (01) ==
LOC: LAB 14:53
PROVIDERS: Family Provider Internal Medicine; PCP Internal Medicine; Referring Provider Internal Medicine Cardiovascular Disease; Visit Provider Internal Medicine Cardiovascular Disease
DX: Z79.01 Long term (current) use of anticoagulants; I48.91 Unspecified atrial fibrillation
CPT/HCPCS: 36415; 85610

== ENCOUNTER → 2024-07-27 | Outpatient (CLI) | payer MEDICARE, BC, SELFPAY | END | disposition home or self-care (01) | LOC: PSN 11:49 | PROVIDERS: PCP Internal Medicine; Referring Provider Nurse Practitioner Family; Visit Provider Nurse Practitioner Family | DX: R00.1 Bradycardia, unspecified (principal); R42 Dizziness and giddiness | CPT/HCPCS: 93225; 93226 ==

== ENCOUNTER 2024-08-09 10:47 | Outpatient (RCR) | payer MEDICARE, BC, SELFPAY ==
[2024-08-09 11:48] LABS: Prothrombin Time (Protime)PT. 23.1 SECONDS (11.7-14.9)
== END 2024-09-07 21:10 | disposition home or self-care (01) ==
LOC: LAB 10:47
PROVIDERS: Family Provider Internal Medicine; PCP Internal Medicine; Referring Provider Internal Medicine Cardiovascular Disease; Visit Provider Internal Medicine Cardiovascular Disease
DX: Z79.01 Long term (current) use of anticoagulants; I48.0 Paroxysmal atrial fibrillation
CPT/HCPCS: 36415; 85610

== ENCOUNTER → 2024-09-06 | Outpatient (CLI) | payer MEDICARE, BC, SELFPAY ==
[2024-09-06 16:08] LABS: Hematocrit 40.0 % (37-47); Hemoglobin 13.1 g/dL (12.0-15.0); Immature Granulocytes Count 0.020 X10^3/uL (0.0-0.0); Mean Corp Hgb Conc 32.8 g/dL (32-36); Mean Corpuscular Volume 99.3 fL (81-99); Mean Platelet Vol. 10.1 fl (6.2-12.0); NRBC Flagged by Analyzer 0 % (0-5); Platelet Count 332 K/mm3 (150-450); RBC Distribution Width CV 13.7 % (11.6-14.6); RBC Distribution Width SD 50.6 fl (35.1-43.9); Red Blood Count 4.03 M/mm3 (4.2-5.4); White Blood Count 8.9 K/mm3 (4.4-11.0)
[2024-09-06 16:35] LABS: AST(SGOT) 30 U/L (<=31); Alanine Aminotransfer ALT/SGPT 22 U/L (<=34); Albumin, Serum 4.6 g/dL (3.4-4.8); Alkaline Phosphatase 120 U/L (35-104); Anion Gap 13 (5-15); BUN 26 mg/dL (4-19); BUN/Creat Ratio 21.0 RATIO (10-20); Calcium,Total 9.8 mg/dL (7.6-11.0); Carbon Dioxide 26.2 mmol/L (21.0-32.0); Chloride 102 mmol/L (98-108); Ferritin 102 ng/mL (22-378); Globulin 3.2 g/dL (2.2-4.2); Glucose 103 mg/dL (70-99); Iron 75 ug/dL (50-170); Iron Binding Capacity,Total 363 ug/dL (250-450); Iron Binding Capacity,Unsat 288 ug/dL (228-428); Potassium 4.6 mmol/L (3.3-5.1); Vitamin D,25 Hydroxy 74.8 ng/mL (30-100)
== END | disposition home or self-care (01) ==
LOC: BIMLAB 12:19
PROVIDERS: PCP Internal Medicine; Visit Provider Internal Medicine
DX: E03.9 Hypothyroidism, unspecified (principal); E78.5 Hyperlipidemia, unspecified; D64.9 Anemia, unspecified; M85.80 Other specified disorders of bone density and structure, unspecified site
CPT/HCPCS: 36415; 80053; 82306; 82728; 83540; 83550; 84443; 85025

== ENCOUNTER 2024-09-19 10:25 | Outpatient (RCR) | payer MEDICARE, BC, SELFPAY ==
[2024-09-12 12:46] LABS: Prothrombin Time (Protime)PT. 20.0 SECONDS (11.7-14.9)
[2024-09-12 12:53] LABS: Magnesium 2.1 mg/dL (1.5-2.2)
[2024-09-19 11:13] LABS: Prothrombin Time (Protime)PT. 25.3 SECONDS (11.7-14.9)
== END 2024-09-19 18:00 | disposition home or self-care (01) ==
LOC: LAB 10:25
PROVIDERS: Family Provider Internal Medicine; PCP Internal Medicine; Referring Provider Internal Medicine Cardiovascular Disease; Visit Provider Internal Medicine Cardiovascular Disease
DX: Z79.01 Long term (current) use of anticoagulants; I48.0 Paroxysmal atrial fibrillation
CPT/HCPCS: 36415; 83735; 85610

== ENCOUNTER → 2024-09-25 | Outpatient (CLI) | payer MEDICARE, BC, SELFPAY ==
--- NOTE | 2024-09-25 18:15 | STRESSREP_ITS ---
Stress Test Report Exercise stress test. 83-year-old lady with a history of chest pain. Stress protocol: Resting EKG demonstrates junctional tachycardia rhythm with a rate of 100 bpm resting blood pressure is 128/70 mmHg. The patient exercised according to the regular Reece protocol for a total duration of 1 minute and 39 seconds attaining a maximum heart rate of 171 bpm which was 123% of maximum predicted heart rate; the maximum workload was 4.6 metabolic equivalents. At rest there were no ST or T wave changes noted to suggest ischemia and at peak exercise upsloping ST changes only were noted which did not meet the criteria for ischemia. The patient appeared to maintain this junctional tachycardia during exercise but in the immediate early recovery. At approximately 48 seconds there was a tachycardic rhythm which was suggestive of an atrial tachycardia with a 2-1 block present. At approximately 4 minutes and 50 seconds into recovery the pat ient was noted to exhibit a sinus rhythm with a rate of 94 bpm. No clinical angina was noted the test was terminated due to the target heart rate being achieved/fatigue. The peak blood pressure was 146/70 mmHg. Rate-pressure product was 18,900. Conclusion: Exercise stress test with intermittent atrial tachycardia with a 2-1 conduction. Junctional tachycardia present. No clinical angina noted at the low workload
== END | disposition home or self-care (01) ==
LOC: CVS 09:33
PROVIDERS: PCP Internal Medicine; Referring Provider Physician Assistant Medical; Visit Provider Physician Assistant Medical
DX: R07.9 Chest pain, unspecified (principal); I49.5 Sick sinus syndrome; R06.09 Other forms of dyspnea
CPT/HCPCS: 93017

== ENCOUNTER 2024-10-10 14:51 | Outpatient (RCR) | payer MEDICARE, BC, SELFPAY ==
[2024-10-10 17:40] LABS: Prothrombin Time (Protime)PT. 31.4 SECONDS (11.7-14.9)
== END 2024-11-07 18:00 | disposition home or self-care (01) ==
LOC: LAB 14:51
PROVIDERS: Family Provider Internal Medicine; PCP Internal Medicine; Referring Provider Internal Medicine Cardiovascular Disease; Visit Provider Internal Medicine Cardiovascular Disease
DX: Z79.01 Long term (current) use of anticoagulants; I48.0 Paroxysmal atrial fibrillation
CPT/HCPCS: 36415; 84443; 85610

== ENCOUNTER 2024-11-08 12:07 | Outpatient (RCR) | payer MEDICARE, BC, SELFPAY ==
[2024-11-08 13:20] LABS: Prothrombin Time (Protime)PT. 24.6 SECONDS (11.7-14.9)
== END 2024-11-08 18:00 | disposition home or self-care (01) ==
LOC: LAB 12:07
PROVIDERS: Family Provider Internal Medicine; PCP Internal Medicine; Referring Provider Internal Medicine Cardiovascular Disease; Visit Provider Internal Medicine Cardiovascular Disease
DX: Z79.01 Long term (current) use of anticoagulants; I48.0 Paroxysmal atrial fibrillation
CPT/HCPCS: 36415; 85610

== ENCOUNTER → 2024-11-24 | Outpatient (CLI) | payer MEDICARE, BC, SELFPAY | END | disposition home or self-care (01) | LOC: LAB 13:41 | PROVIDERS: PCP Internal Medicine; Referring Provider Internal Medicine; Visit Provider Internal Medicine | DX: E03.9 Hypothyroidism, unspecified (principal) | CPT/HCPCS: 36415; 84443 ==

== ENCOUNTER → 2024-12-12 | Outpatient (CLI) | payer MEDICARE, BC, SELFPAY ==
--- NOTE | 2024-12-12 15:15 | BI_ITS ---
EXAM: BI/SCRN MAMM (CAD)W/NNAMDI BILAT
--- NOTE | 2024-12-12 15:42 | BD_ITS ---
PROCEDURE: BD/Dexa Bone Density Study
== END | disposition home or self-care (01) ==
PROVIDERS: PCP Internal Medicine; Referring Provider Nurse Practitioner; Visit Provider Nurse Practitioner
DX: Z12.31 Encounter for screening mammogram for malignant neoplasm of breast (principal); Z78.0 Asymptomatic menopausal state
CPT/HCPCS: 77063; 77067; 77080

== ENCOUNTER 2025-01-02 15:22 | Outpatient (RCR) | payer MEDICARE, BC, SELFPAY ==
[2024-12-12 17:38] LABS: Prothrombin Time (Protime)PT. 22.0 SECONDS (11.7-14.9)
[2024-12-26 16:09] LABS: Prothrombin Time (Protime)PT. 17.7 SECONDS (11.7-14.9)
[2025-01-02 16:45] LABS: Prothrombin Time (Protime)PT. 21.9 SECONDS (11.7-14.9)
== END 2025-01-06 18:00 | disposition home or self-care (01) ==
LOC: LAB 15:22
PROVIDERS: Family Provider Internal Medicine; PCP Internal Medicine; Referring Provider Internal Medicine Cardiovascular Disease; Visit Provider Internal Medicine Cardiovascular Disease
DX: Z79.01 Long term (current) use of anticoagulants (principal); I48.0 Paroxysmal atrial fibrillation
CPT/HCPCS: 36415; 85610

== ENCOUNTER 2025-01-23 12:42 | Outpatient (RCR) | payer MEDICARE, BC, SELFPAY ==
[2025-01-23 13:42] LABS: Prothrombin Time (Protime)PT. 26.0 SECONDS (11.7-14.9)
== END 2025-01-23 18:00 | disposition home or self-care (01) ==
LOC: LAB 12:42
PROVIDERS: Nurse Practitioner Family; Family Provider Internal Medicine; PCP Internal Medicine; Referring Provider Internal Medicine Cardiovascular Disease; Visit Provider Internal Medicine Cardiovascular Disease
DX: Z79.01 Long term (current) use of anticoagulants (principal); I48.0 Paroxysmal atrial fibrillation
CPT/HCPCS: 36415; 85610